=== PATIENT | male | born 1935 | race Caucasian/White ===

== ENCOUNTER 2016-10-26 12:21 | Outpatient (RCR) | payer MEDICARE, OTHER ==
--- OUTSIDE RECORDS SUMMARY | 2016-08-24 12:21 | XMS REPORT | Continuity of Care Document ---
Author Author [facility] Organization [facility] Address Unknown Phone Unavailable Care Team Providers Care Clam Shovel Operator Name Role Phone NO, LOCAL PHYSICIAN PCP Unavailable Insurance Providers Payer Name Policy Number Subscriber Name Relationship [employer] [id number] Gloria Walters 17 Self / Same As Patient Advance Directives Directive Response Recorded Date/Time Advance Directives No 04/16/14 12:31pm Health Care Power of Botany Technician No 04/16/14 12:31pm Organ Donor No 04/16/14 12:31pm Resuscitation Status Full Code 04/16/14 12:31pm Chief Complaint and Reason for Visit Chief Complaint CHEST PAIN ABD PAIN Reason for Visit Right upper quadrant abdominal pain Renal insufficiency Problems Medical Problems Problem Onset Date Status Right upper quadrant abdominal pain Unknown Active Renal insufficiency Unknown Active Medications Medication Dose Route Sig Days/Qty Instructions Order Date Discontinued Date Status [Bp Pill] 11/29/11 04/16/14 Discontinued Tramadol Hcl 100 Mg PO TWICE A DAY 11/29/11 Active [Crestor] 11/29/11 04/16/14 Discontinued Aspirin 325 Mg PO DAILY 11/29/11 04/16/14 Discontinued Cyclobenzaprine HCl (Flexeril) 1 Each PO Q8HR PRN 14 Qty 11/29/11 Discontinued Tramadol Hcl 50 Mg PO EVERY 6 HOURS 30 Qty 11/29/11 04/16/14 Discontinued Metformin HCl (Glucophage) 1,000 Mg PO TWICE A DAY 04/16/14 Active Lisinopril 2.5 Mg PO TWICE A DAY 04/16/14 Active Levothyroxine Sodium (Levothroid) 25 Mcg PO DAILY 04/16/14 Active Rosuvastatin Calcium 20 Mg PO BEDTIME 04/16/14 Active Omeprazole 20 Mg PO TWICE A DAY 04/16/14 Active Allopurinol 300 Mg PO DAILY 04/16/14 Active Terazosin Hcl 10 Mg PO BEDTIME 04/16/14 Active Ferrous Sulfate 325 Mg PO BEDTIME 04/16/14 Active Calcium Carb/D3/Mag Aa Chelate 1 Cap PO DAILY 04/16/14 Active [place]-3 Fatty Acids/Fish Oil 1,000 Mg PO DAILY 04/16/14 Active Social History Social History Problem Response Recorded Date/Time Alcohol Use Denies Use 04/16/2014 1:00pm Recreational Drug Use No 04/16/2014 1:00pm Recent Foreign Travel No 04/16/2014 1:00pm Recent Infectious Disease Exposure No 04/16/2014 1:00pm Hospitalization with Isolation Denies 04/17/2014 9:34pm Sexually Transmitted Disease No 04/16/2014 1:00pm HIV/AIDS No 04/16/2014 1:00pm Smoking Status Former Smoker 04/16/2014 12:37pm Do you dip or chew tobacco? No 04/16/2014 12:37pm Query Response Start Date Stop Date Smoking Status Former Smoker 03/26/2010 Hospital Discharge Instructions No hospital discharge instructions. Plan of Care Discharge Date 04/17/14 5:23pm Disposition 05 XFER OTHER Instructions/Education Provided Healthy Heart Diet (DC) Prescriptions See Medications Section Functional Status Query Response Date Recorded Patient Orientation Person Place Time Situation April 17, 2014 9:34pm Comprehension Ability Understands Concepts April 17, 2014 9:00am Allergies, Adverse Reactions, Alerts Allergen Type Severity Reaction Status Last Updated No Known Drug Allergies Active 11/29/11 Immunizations Name Given Type Date of Influenza Vaccine 08/26/11 Historical Hepatitis A No Historical Hepatitis B No Historical Tetanus Booster (TDap) Unknown Historical pneumococcal polysaccharide PPV23 04/17/14 Administered pneumococcal polysaccharide PPV23 04/17/14 Administered Vital Signs Acute Vital Signs Vital Response Date/Time Temperature (Fahrenheit) 99.4 degrees F (97.6 - 99.5) Temperature (Calculated Celsius) 37.91380 degrees C (36.4 - 37.5) Temperature Source Tympanic Pulse Rate (adult) 98 bpm (60 - 90) Respiratory Rate 20 bpm (12 - 24) O2 Sat by Pulse Oximetry 92 % (88 - 100) Blood Pressure 132/89 mm Hg Pain Pain Intensity 0 Pain Pain Intensity 0 Height (Feet) 5 feet Height (Inches) 7.00 inches Height (Calculated Centimeters) 170.512676 cm Weight (Pounds) 244 pounds Weight (Ounces) 3.2 oz Weight (Calculated Grams) 290088.258 gm Weight (Calculated Kilograms) 110.498577 kilograms Calculated BMI 37.90 Results Test Source Date Result Interp. Ref. Range Comments Activated Partial Thromboplast Time April 16, 2014 6:45am 27 SEC N 24-35 Has specimen been collected/obtained? Y Alanine Aminotransferase (ALT/SGPT) April 16, 2014 6:45am 17 U/L N 0-55 Has specimen been collected/obtained? Y Albumin April 16, 2014 6:45am 3.6 G/DL N 3.2-4.5 Has specimen been collected/obtained? Y Alkaline Phosphatase April 16, 2014 6:45am 63 U/L N 40-136 Has specimen been collected/obtained? Y Amylase Level April 16, 2014 6:45am 74 U/L N 25-125 Has specimen been collected/obtained? Y Aspartate Amino Transf (AST/SGOT) April 16, 2014 6:45am 21 U/L N 5-34 Has specimen been collected/obtained? Y BUN/Creatinine Ratio April 16, 2014 6:45am 12 - Has specimen been collected/obtained? Y Basophils # (Auto) April 16, 2014 6:45am 0.0 10^3/uL N 0.0-0.1 Has specimen been collected/obtained? Y Basophils (%) (Auto) April 16, 2014 6:45am 0 % N 0-10 Has specimen been collected/obtained? Y Blood Urea Nitrogen April 16, 2014 6:45am 23 MG/DL H 7-18 Has specimen been collected/obtained? Y Calcium Level April 16, 2014 6:45am 8.9 MG/DL N 8.5-10.1 Has specimen been collected/obtained? Y Carbon Dioxide Level April 16, 2014 6:45am 28 MMOL/L N 21-32 Has specimen been collected/obtained? Y Chloride Level April 16, 2014 6:45am 101 MMOL/L N 98-107 Has specimen been collected/obtained? Y Creatine Kinase MB April 16, 2014 6:45am 4.8 NG/ML - Has specimen been collected/obtained? Y Creatinine April 16, 2014 6:45am 1.88 MG/DL H 0.60-1.30 Has specimen been collected/obtained? Y Eosinophils # (Auto) April 16, 2014 6:45am 0.1 10^3/uL N 0.0-0.3 Has specimen been collected/obtained? Y Eosinophils (%) (Auto) April 16, 2014 6:45am 0 % N 0-10 Has specimen been collected/obtained? Y Glucose Level April 16, 2014 6:45am 203 MG/DL H 70-105 Has specimen been collected/obtained? Y Hematocrit April 16, 2014 6:45am 37 % L 40-54 Has specimen been collected/obtained? Y Hemoglobin April 16, 2014 6:45am 12.3 G/DL L 13.3-17.7 Has specimen been collected/obtained? Y Lipase April 16, 2014 6:45am 16 U/L N 8-78 Has specimen been collected/ obtained? Y Lymphocytes # (Auto) April 16, 2014 6:45am 2.1 X 10^3 N 1.0-4.0 Has specimen been collected/obtained? Y Lymphocytes (%) (Auto) April 16, 2014 6:45am 16 % N 12-44 Has specimen been collected/obtained? Y Magnesium Level April 16, 2014 6:45am 1.6 MG/DL L 1.8-2.4 Has specimen been collected/obtained? Y Mean Corpuscular Hemoglobin April 16, 2014 6:45am 33 PG N 25-34 Has specimen been collected/obtained? Y Mean Corpuscular Hemoglobin Concent April 16, 2014 6:45am 33 G/DL N 32- 36 Has specimen been collected/obtained? Y Mean Corpuscular Volume April 16, 2014 6:45am 100 FL H 80-99 Has specimen been collected/obtained? Y Mean Platelet Volume April 16, 2014 6:45am 9.8 FL N 7.4-10.4 Has specimen been collected/obtained? Y Monocytes # (Auto) April 16, 2014 6:45am 0.7 X 10^3 N 0.0-1.0 Has specimen been collected/obtained? Y Monocytes (%) (Auto) April 16, 2014 6:45am 6 % N 0-12 Has specimen been collected/obtained? Y Myoglobin April 16, 2014 6:45am 150.1 NG/ML H 10.0-92.0 Has specimen been collected/obtained? Y Neutrophils # (Auto) April 16, 2014 6:45am 10.3 X 10^3 H 1.8-7.8 Has specimen been collected/obtained? Y Neutrophils (%) (Auto) April 16, 2014 6:45am 78 % H 42-75 Has specimen been collected/obtained? Y Platelet Count April 16, 2014 6:45am 195 10^3/uL N 130-400 Has specimen been collected/obtained? Y Potassium Level April 16, 2014 6:45am 4.3 MMOL/L N 3.6-5.0 Has specimen been collected/obtained? Y Prothrombin Time April 16, 2014 6:45am 13.3 SEC N 12.2-14.7 Has specimen been collected/obtained? Y Red Blood Count April 16, 2014 6:45am 3.72 10^6/uL L 4.35-5.85 Has specimen been collected/obtained? Y Red Cell Distribution Width April 16, 2014 6:45am 13.5 % N 10.0-14.5 Has specimen been collected/obtained? Y Sodium Level April 16, 2014 6:45am 142 MMOL/L N 135-145 Has specimen been collected/obtained? Y Total Bilirubin April 16, 2014 6:45am 0.4 MG/DL N 0.1-1.0 Has specimen been collected/obtained? Y Total Creatine Kinase April 16, 2014 6:45am 448 U/L H 30-200 Has specimen been collected/obtained? Y Total Protein April 16, 2014 6:45am 7.1 G/DL N 6.4-8.2 Has specimen been collected/obtained? Y Troponin I April 16, 2014 6:45am < 0.30 NG/ML - Has specimen been collected/obtained? Y White Blood Count April 16, 2014 6:45am 13.2 10^3/uL H 4.3-11.0 Has specimen been collected/obtained? Y Estimat Glomerular Filtration Rate April 16, 2014 6:45am 35 - GFR INTERPRETIVE DATA UNITS FOR ESTIMATED GFR (eGFR): mL/min/1.73 M2 REFERENCE RANGE FOR ESTIMATED GFR (eGFR) eGFR NORMAL eGFR >60 MODERATELY DECREASED eGFR 30-59 SEVERLY DECREASED eGFR 15-29 KIDNEY FAILURE <15 (OR DIALYSIS) INR Comment April 16, 2014 6:45am 1.0 N 0.8-1.4 INTERPRETIVE DATASUGGESTED THERAPEUTIC RANGE FOR INR'S: VENOUS THROMBOSIS, PULMONARY EMBOLISM, OR PREVENTION OF SYSTEMIC EMBOLISM (EG. IN ATRIAL FIBRILLATION): 2.0 - 3.0 MECHANICAL PROSTHETIC HEART VALVES: 2.5 - 3.5* *NOTE: INR'S UP TO 4.5 MAY BE NECESSARY IN SELECTED GROUPS OF HIGH RISK PATIENTS. [employer] CONSENSUS CONFERENCE ON ANTITHROMBOTIC THERAPY (2000). Procedures Procedure Status Date Provider(s) Tracing only of electrocardiogram completed 04/16/14 ARCHIE GONZALES MD Tracing only of electrocardiogram completed 04/16/14 LOUIS MIX MD Tracing only of electrocardiogram completed 04/16/14 LOUIS MIX MD Encounters Encounter Location Date/Time Discharged Inpatient [facility] 04/16/14 12:00pm Recent Diagnosis Right upper quadrant abdominal pain Renal insufficiency
[~2016-10-26 12:21] MED LIST: ALLO300T2 PO; ASP325T PO; BP PILL; CALC1CAP8 PO; CRESTOR; CYCL10TA9 PO; FERR-57 PO; LISI10TA2 PO; LVT.025T PO; MTF500T PO; OMEG1CAP51 PO; OMEP20CA12 PO; ROSU40TA PO; TERA10CA3 PO; TRAM50TA2 PO
== END 2016-11-22 | disposition home or self-care (01) ==
LOC: ONC 12:21
PROVIDERS: ATTEND Radiology Radiation Oncology
DX: Z51.0 Encounter for antineoplastic radiation therapy (principal); C07 Malignant neoplasm of parotid gland
CPT/HCPCS: 77300; 77301; 77331; 77332; 77334; 77336; 77338; 77386; 99214

== ENCOUNTER 2016-12-07 15:12 | Outpatient (RCR) | payer MEDICARE, OTHER ==
--- OUTSIDE RECORDS SUMMARY | 2016-12-07 15:15 | XMS REPORT | Continuity of Care Document ---
Author Author [facility] Organization [facility] Address Unknown Phone Unavailable Care Team Providers Care Showroom Salesperson Name Role Phone NEEL AMAYA MD PCP Insurance Providers Payer Name Policy Number Subscriber Name Relationship [employer] [id number] Gloria Walters 17 Self / Same As Patient Self Pay Pending Sivan Apprv [id number] Gloria Walters 17 Self / Same As Patient Advance Directives Directive Response Recorded Date/Time Advance Directives No 04/11/16 4:11am Health Care Power of Lead Installer No 04/11/16 4:11am Organ Donor No 04/11/16 4:11am Problems Active Problems Medical Problem Onset Date Status Elevated liver enzymes Unknown Acute Hyperglycemia Unknown Acute Pain, abdominal, epigastric Unknown Acute Renal insufficiency Unknown Acute Right upper quadrant abdominal pain Unknown Acute Medications Current Home Medications Medication Dose Units Route Directions Days/Qty Instructions Start Date Tramadol Hcl 50 Mg 100 Mg Oral Twice A Day 11/29/11 Metformin Hcl (Glucophage) 500 Mg 1,000 Mg Oral Twice A Day 04/16/14 Lisinopril 10 Mg 2.5 Mg Oral Twice A Day 04/16/14 Levothyroxine Sodium (Levothroid) 25 Mcg 25 Mcg Oral Daily 04/16/14 Rosuvastatin Calcium 40 Mg 20 Mg Oral Bedtime 04/16/14 Omeprazole 20 Mg 20 Mg Oral Twice A Day 04/16/14 Allopurinol 300 Mg 300 Mg Oral Daily 04/16/14 Terazosin Hcl 10 Mg 10 Mg Oral Bedtime 04/16/14 Ferrous Sulfate 325 Mg 325 Mg Oral Bedtime 04/16/14 Calcium Carb/D3/Mag Aa Chelate 1 Each 1 Cap Oral Daily 04/16/14 [place]-3 Fatty Acids/Fish Oil 1 Each 1,000 Mg Oral Daily 04/16/14 Past Home Medications Medication Directions Ordered Status [Bp Pill] , 11/29/11 Discontinued [Crestor] , 11/29/11 Discontinued Aspirin 325 Mg Tab, 325 Mg Oral Daily 11/29/11 Discontinued Cyclobenzaprine Hcl (Flexeril) 10 Mg Tablet, 1 Each Oral Q8hr Prn 11/29/11 Discontinued Tramadol Hcl 50 Mg Tablet, 50 Mg Oral Every 6 Hours 11/29/11 Discontinued Social History Social History Problem Response Recorded Date/Time Alcohol Use Denies Use 04/11/2016 4:11am Recreational Drug Use No 04/11/2016 4:11am Recent Foreign Travel No 04/16/2014 1:00pm Recent Infectious Disease Exposure No 04/16/2014 1:00pm Hospitalization with Isolation Denies 04/17/2014 9:34pm Sexually Transmitted Disease No 04/11/2016 4:11am HIV/AIDS No 04/11/2016 4:11am Do you dip or chew tobacco? No 04/11/2016 4:11am Sexually Transmitted Disease No 04/11/2016 4:11am Hospitalization with Isolation Denies 04/17/2014 9:34pm Hospital Discharge Instructions No hospital discharge instructions. Plan of Care Prescriptions See Medication Section Functional Status No functional status results. Allergies, Adverse Reactions, Alerts No known allergies. Immunizations No immunization records. Vital Signs No known vital signs results. Results No known relevant diagnostic tests, laboratory data and/or discharge summary. Procedures No known history of procedures. Encounters Encounter Location Arrival/Admit Date Discharge/Depart Date Attending Provider Discharged Recurring [facility] 10/26/16 12:21pm 11:59pm JOSÉ BRYANT MD
[2016-12-22] MEDS ORDERED: CEPH500T PO (17:37)
== END 2017-03-07 | disposition home or self-care (01) ==
LOC: ONC 15:12
PROVIDERS: ATTEND Radiology Radiation Oncology
DX: C07 Malignant neoplasm of parotid gland (principal)
CPT/HCPCS: 99213

== ENCOUNTER 2016-12-22 13:34 | Emergency (ER) | payer MEDICARE ==
[~2016-12-22] VITALS: Ht 170.2 cm; Wt 110.8 kg
[2016-12-22] MEDS ORDERED: NS IV 500 ML 500 ML IV ONE (13:46)
[2016-12-22 13:54] LABS: BASOPHILS % (AUTO) 0 % (0-10); EOSINOPHILS # (AUTO) 0.1 10^3/uL (0.0-0.3); EOSINOPHILS % (AUTO) 1 % (0-10); LYMPHOCYTES # (AUTO) 1.3 X 10^3 (1.0-4.0); LYMPHOCYTES % (AUTO) 20 % (12-44); MEAN CORPUSCULAR HEMOGLOBIN 32 PG (25-34); MEAN CORPUSCULAR HGB CONC 34 G/DL (32-36); MEAN CORPUSCULAR VOLUME 94 FL (80-99); MEAN PLATELET VOLUME 10.2 FL (7.4-10.4); MONOCYTES # (AUTO) 0.6 X 10^3 (0.0-1.0); MONOCYTES % (AUTO) 9 % (0-12); NEUTROPHILS # (AUTO) 4.5 X 10^3 (1.8-7.8); NEUTROPHILS % (AUTO) 70 % (42-75); PLATELET COUNT 189 10^3/uL (130-400); RED BLOOD COUNT 4.36 10^6/uL (4.35-5.85); RED CELL DISTRIBUTION WIDTH 16.1 % (10.0-14.5); WHITE BLOOD COUNT 6.4 10^3/uL (4.3-11.0)
[2016-12-22] MEDS ORDERED: DEXTROSE 50% 50 ML (IMS) SYR IV ONE (14:00)
[2016-12-22 14:07] LABS: ALANINE AMINOTRANSFERASE 18 U/L (0-55); ALBUMIN 3.4 G/DL (3.2-4.5); ANION GAP 9 MMOL/L (5-14); ASPARTATE AMINO TRANSFERASE 27 U/L (5-34); BILIRUBIN,TOTAL 0.7 MG/DL (0.1-1.0); BLOOD UREA NITROGEN 24 MG/DL (7-18); BUN/CREATININE RATIO 13; CALCIUM 9.3 MG/DL (8.5-10.1); CARBON DIOXIDE 21 MMOL/L (21-32); CHLORIDE 108 MMOL/L (98-107); CREATININE SERUM 1.87 MG/DL (0.60-1.30); GFR ESTIMATED 35; GLUCOSE 147 MG/DL (70-105); POTASSIUM 4.2 MMOL/L (3.6-5.0); SODIUM 138 MMOL/L (135-145); TOTAL PROTEIN 6.4 G/DL (6.4-8.2)
--- NOTE | 2016-12-22 14:08 | ED General ---
General Chief Complaint: Glucose Problems Stated Complaint: LOW BLOOD SUGAR Nursing Triage Note: EMS REPORTS PT HAS HAD SEVERAL INCIDENENTS IN THE LAST COUPLE WEEKS OF LOW BLOOD SUGAR. PT REPORTS HE FELL LAST WEEK AND HAS A HEMATOMA TO L EYE. PT REPORTS HE DID NOT SEEK MEDICAL CARE FOR THE FALL. PT BS UPON EMS ARRIVAL TO [facility] [place] IS REPORTED TO BE IN THE 30'S AND PT WAS UNRESPONSIVE. PT RECIEVED 1 AMP D50 PER EMS IN ROUTE AND BLOOD SUGAR WAS 230. UPON ARRIVAL TO ED PT BLOOD SUGAR IS 132. PT IS ALERT AND ORIENTED UPON ARRIVAL AND ABLE TO OBEY COMMANDS. Nursing Sepsis Screen: No Definite Risk Source of Information: Patient, Family Exam Limitations: No Limitations History of Present Illness Time Seen by Provider: 13:53 Initial Comments Here with report of low blood sugar today and unresponsiveness. EMS was summoned. He was noted to have blood sugars as listed above in triage note. Overall mentating better now. He has had multiple episodes of this over the last couple of weeks. Patient was on radiation therapy for cancer and has not had much appetite fluids. [facility] [place] [place] [facility] [place]. He has had no adjustments of his insulin dosing despite his decreased appetite. After his fall last week he did not seek medical care. Aside from the injury, he does not report any other injury. Timing/Duration: Intermittent, Other (2 weeks) Severity: Moderate Associated Systoms: No Chest Pain, No Cough, No Fever/Chills, No Nausea/ Vomiting, No Shortness of Air, Weakness Allergies and Home Medications Allergies Coded Allergies: No Known Drug Allergies (Unverified , 11/29/11) Home Medications Allopurinol 300 Mg Tab, 300 MG PO DAILY, (Reported) Calcium Carb/D3/Mag Aa Chelate 1 Each Capsule, 1 CAP PO DAILY, (Reported) Ferrous Sulfate 325 Mg Tablet, 325 MG PO HS, (Reported) Levothyroxine Sodium 25 Mcg Tablet, 25 MCG PO DAILY, (Reported) Lisinopril 10 Mg Tablet, 2.5 MG PO BID, (Reported) Metformin Hcl 500 Mg Tablet, 1,000 MG PO BID, (Reported) Munday-3 Fatty Acids/Fish Oil 1 Each Capsule, 1,000 MG PO DAILY, (Reported) Omeprazole 20 Mg Capsule.dr, 20 MG PO BID, (Reported) Rosuvastatin Calcium 40 Mg Tablet, 20 MG PO HS, (Reported) Terazosin Hcl 10 Mg Capsule, 10 MG PO HS, (Reported) Tramadol Hcl 50 Mg Tablet, 100 MG PO BID, (Reported) Constitutional: see HPI EENTM: see HPI Respiratory: no symptoms reported Cardiovascular: no symptoms reported Gastrointestinal: no symptoms reported, No nausea, No vomiting Genitourinary: no symptoms reported Musculoskeletal: no symptoms reported Skin: see HPI, change in color, No lesions Psychiatric/Neurological: See HPI, Weakness Hematologic/Lymphatic: No Symptoms Reported Immunological/Allergic: no symptoms reported All Other Systems Reviewed Negative Unless Noted: Yes Past Oxsuzma-Gwgixx-Kcpbcw Hx Patient Social History Alcohol Use: Rarely Uses Recreational Drug Use: No Smoking Status: Former Smoker Type Used: Cigarettes Former Smoker/When Quit: Mar 26, 2010 Recent Foreign Travel: No Contact w/Someone Who Travel: No Recent Infectious Disease Expo: No Recent Hopitalizations: No Immunizations Up To Date Tetanus Booster (TDap): Unknown PED Vaccines UTD: No Date of Influenza Vaccine: Aug 26, 2011 Seasonal Allergies Seasonal Allergies: No Surgeries HX Surgeries: Yes (anurysm repair, ) Surgeries: Coronary Stent, Gallbladder Respiratory Hx Respiratory Disorders: No Cardiovascular Hx Cardiac Disorders: Yes Cardiac Disorders: Coronary Artery Disease, High Cholesterol, Hypertension Neurological Hx Neurological Disorders: Yes (pt stated had a stroke 15 years ago but has not been diagnosed) Reproductive System Hx Reproductive Disorders: No Sexually Transmitted Disease: No HIV/AIDS: No Genitourinary Hx Genitourinary Disorders: Yes Genitourinary Disorders: Prostate Problems Gastrointestinal Hx Gastrointestinal Disorders: No (HX OF GALLSTONES) Gastrointestinal Disorders: Gastroesophageal Reflux, Ulcer Musculoskeletal Hx Musculoskeletal Disorders: No Musculoskeletal Disorders: Arthritis, Chronic Back Pain, Gout Endocrine Hx Endocrine Disorders: Yes Endocrine Disorders: Diabetes, Insulin dep, Hypothyroidsim HEENT HX ENT Disorders: Yes HEENT Disorders: Cataract, Glaucoma Loss of Vision: Bilateral Hearing Impairment: Denies Cancer Hx Cancer: Yes Cancer: Skin Psychosocial Hx Psychiatric Problems: Yes Behavioral Health Disorders: Depression Integumentary HX Skin/Integumentary Disorder: Yes (hx of skin cancer) Blood Transfusions Hx Blood Disorders: No Adverse Reaction to a Blood Tr: No Reviewed Nursing Assessment Reviewed/Agree w Nursing PMH: Yes Family Medical History Significant Family History: No Pertinent Family Hx Physical Exam Vital Signs Vital Sign - Last 12Hours 12/22/16 13:40 Temp 97.1 Pulse 88 Resp 18 B/P (MAP) 156/87 Pulse Ox 99 Capillary Refill : Less Than 3 Seconds General Appearance: No Apparent Distress, WD/WN HEENT: PERRL/EOMI, TMs Normal, Pharynx Normal, Other (left periorbital ecchymosis) Neck: Full Range of Motion, Normal Inspection, Non Tender, Supple Respiratory: Chest Non Tender, Lungs Clear, Normal Breath Sounds Cardiovascular: Regular Rate, Rhythm, No Murmur Gastrointestinal: Non Tender, Soft Back: Normal Inspection, No CVA Tenderness, No Vertebral Tenderness Extremity: Normal Range of Motion, Non Tender, No Calf Tenderness Neurologic/Psychiatric: Alert, Oriented x3, No Motor/Sensory Deficits Skin: Warm/Dry, Ecchymosis (left-sided face as described above. ), Other (no abrasion is noted to the face or head.) Progress/Results/Core Measures Results/Orders Lab Results Laboratory Tests Test 12/22/16 13:42 12/22/16 14:53 12/22/16 16:30 Range/Units White Blood Count 6.4 4.3-11.0 10^3/uL Red Blood Count 4.36 4.35-5.85 10^6/uL Hemoglobin 14.0 13.3-17.7 G/DL Hematocrit 41 40-54 % Mean Corpuscular Volume 94 80-99 FL Mean Corpuscular Hemoglobin 32 25-34 PG Mean Corpuscular Hemoglobin Concent 34 32-36 G/DL Red Cell Distribution Width 16.1 H 10.0-14.5 % Platelet Count 189 130-400 10^3/uL Mean Platelet Volume 10.2 7.4-10.4 FL Neutrophils (%) (Auto) 70 42-75 % Lymphocytes (%) (Auto) 20 12-44 % Monocytes (%) (Auto) 9 0-12 % Eosinophils (%) (Auto) 1 0-10 % Basophils (%) (Auto) 0 0-10 % Neutrophils # (Auto) 4.5 1.8-7.8 X 10^3 Lymphocytes # (Auto) 1.3 1.0-4.0 X 10^3 Monocytes # (Auto) 0.6 0.0-1.0 X 10^3 Eosinophils # (Auto) 0.1 0.0-0.3 10^3/uL Basophils # (Auto) 0.0 0.0-0.1 10^3/uL Sodium Level 138 135-145 MMOL/L Potassium Level 4.2 3.6-5.0 MMOL/L Chloride Level 108 H 98-107 MMOL/L Carbon Dioxide Level 21 21-32 MMOL/L Anion Gap 9 5-14 MMOL/L Blood Urea Nitrogen 24 H 7-18 MG/DL Creatinine 1.87 H 0.60-1.30 MG/DL Estimat Glomerular Filtration Rate 35 BUN/Creatinine Ratio 13 Glucose Level 147 H 70-105 MG/DL Calcium Level 9.3 8.5-10.1 MG/DL Total Bilirubin 0.7 0.1-1.0 MG/DL Aspartate Amino Transf (AST/SGOT) 27 5-34 U/L Alanine Aminotransferase (ALT/SGPT) 18 0-55 U/L Alkaline Phosphatase 140 H 40-136 U/L Troponin I < 0.30 <0.30 NG/ML Total Protein 6.4 6.4-8.2 G/DL Albumin 3.4 3.2-4.5 G/DL Glucometer 203 H 70-110 MG/DL Urine Color YELLOW Urine Clarity CLEAR Urine pH 5 5-9 Urine Specific [place] 1.020 1.016-1.022 Urine Protein 2+ H NEGATIVE Urine Glucose (UA) 2+ H NEGATIVE Urine Ketones NEGATIVE NEGATIVE Urine Nitrite NEGATIVE NEGATIVE Urine Bilirubin NEGATIVE NEGATIVE Urine Urobilinogen NORMAL NORMAL MG/DL Urine Leukocyte Esterase 2+ H NEGATIVE Urine RBC (Auto) 1+ H NEGATIVE Urine RBC 0-2 /HPF Urine WBC 25-50 H /HPF Urine Squamous Epithelial Cells 5-10 /HPF Urine Crystals NONE /LPF Urine Bacteria FEW H /HPF Urine Casts PRESENT /LPF Urine Granular Casts 2-5 H /LPF Urine Mucus NEGATIVE /LPF Urine Culture Indicated YES My Orders Orders - ARCHIE GONZALES MD Cbc With Automated Diff (12/22/16 13:46) Comprehensive Metabolic Panel (12/22/16 13:46) Troponin I (12/22/16 13:46) Ua Culture If Indicated (12/22/16 13:46) Saline Lock/Iv-Start (12/22/16 13:46) Ekg Tracing (12/22/16 13:46) D50w (Emergency) Syringe (Dextrose 50% 5 (12/22/16 14:00) Ns Iv 500 Ml (Sodium Chloride 0.9%) (12/22/16 13:46) Ct Head Wo (12/22/16 14:02) General/Regular (12/22/16 Lunch) Urine Culture (12/22/16 16:30) Medications Given in ED Current Medications Medications Dose Ordered Sig/Steven Route Start Time Stop Time Status Last Admin Dose Admin Dextrose 50 ml ONCE ONCE IV 12/22/16 14:00 12/22/16 14:01 DC 12/22/16 13:59 50 ML Sodium Chloride 500 ml @ 0 mls/hr Q0M ONCE IV 12/22/16 13:46 12/22/16 13:50 DC 12/22/16 13:59 0 MLS/HR Vital Signs/I&O Vital Sign - Last 12Hours 12/22/16 13:40 Temp 97.1 Pulse 88 Resp 18 B/P (MAP) 156/87 Pulse Ox 99 Blood Pressure Mean: 110 Progress Note : Progress Note Seen and evaluated. IV by EMS. This IV no longer worked after arrival. Repeat IV. Due to the patient's recent fall history and continued hypoglycemia , we will get CT of the head as well as labs and UA. Normal saline 500 mL bolus. One amp of D50 for declining sugars given. Monitor patient. ECG Initial ECG Impression Date: Dec 22, 2016 Initial ECG Impression Time: 13:43 Initial ECG Rate: 86 Initial ECG Rhythm: Normal Sinus Comment Sinus rhythm with right bundle branch block. No evidence of ST elevation [facility]. Normal axis. Similar to previous of 04/11/16. Interpreted by me. Diagnostic Imaging Diagonstic Imaging: CT Plain Films/CT/US/NM/MRI: head Comments NAME: [facility] REC#: [id number] PT STATUS: REG ER : 1935 PHYSICIAN: ARCHIE GONZALES MD ADMIT DATE: 12/22/16/ER Signed Date of Exam: 12/22/16 CT HEAD WO INDICATION: Fall with injury to head. TECHNIQUE: A noncontrast brain CT was performed. FINDINGS: There is mild diffuse atrophic change. There are patchy low-density changes in the deep white matter, compatible with chronic ischemic change. There is no hemorrhage or mass effect. There is no subdural or epidural collection. There are vascular calcifications noted. The calvarial windows are unremarkable. There is partial opacification of the mastoid air cells on the left side. IMPRESSION: Atrophic changes and mild chronic changes in the deep white matter. No acute intracranial abnormality. Dictated by: Dictated on workstation # [id number] Dict: 12/22/16 1458 Trans: 12/22/16 1523 [id number] Interpreted by: NGA ROMERO MD Electronically signed by:NGA ROMERO MD 12/22/16 1523 Reviewed: Reviewed by Me Departure Impression Impression: Primary Impression: Hypoglycemia associated with diabetes Additional Impression: Urinary tract infection Qualified Codes: N30.00 - Acute cystitis without hematuria Disposition: HOME, SELF-CARE Condition: Improved Departure-Patient Inst. Decision time for Depature: 17:31 Referrals: NO,LOCAL PHYSICIAN (PCP/Family) Primary Care Physician Patient Instructions: Diabetes Type 2 (DC), HYPOGLYCEMIA, Urinary Tract Infection, Adult (DC) Add. Discharge Instructions: All discharge instructions reviewed with patient and/or family. Voiced understanding. Continue home medications as directed. You should decrease your long-acting insulin dose 10 percent which would be 27 units daily and decrease your short acting or rapid acting insulin to 18 units after meals as well. Call your doctor tomorrow for appointment within the next few days. You need to have your insulin dosing verified and adjusted by your doctor to help prevent the low blood sugars. Do not take your short acting insulin if you have not eaten. Do not take your insulin if your blood sugar is low. Return for worse pain, fever, vomiting, weakness or other concerns as needed. Scripts Cephalexin (Cephalexin) 500 Mg Tablet 500 MG PO BID, #14 TAB 0 Refills Prov: ARCHIE GONZALES MD 12/22/16 ARCHIE GONZALES MD Dec 22, 2016 14:08
[2016-12-22 14:13] LABS: TROPONIN I < 0.30 NG/ML (<0.30)
--- NOTE | 2016-12-22 15:03 | Diagnostic Imaging Report ---
INDICATION: Fall with injury to head. TECHNIQUE: A noncontrast brain CT was performed. FINDINGS: There is mild diffuse atrophic change. There are patchy low-density changes in the deep white matter, compatible with chronic ischemic change. There is no hemorrhage or mass effect. There is no subdural or epidural collection. There are vascular calcifications noted. The calvarial windows are unremarkable. There is partial opacification of the mastoid air cells on the left side. IMPRESSION: Atrophic changes and mild chronic changes in the deep white matter. No acute intracranial abnormality. Dictated by: Dictated on workstation # [id number]
[2016-12-22 16:41] LABS: BILIRUBIN,URINE NEGATIVE (NEGATIVE); KETONES,URINE NEGATIVE (NEGATIVE); LEUKOCYTE ESTERASE ,URINE 2+ (NEGATIVE); NITRITE,URINE NEGATIVE (NEGATIVE); PH,URINE 5 (5-9); PROTEIN,URINE 2+ (NEGATIVE); UROBILINOGEN,URINE NORMAL (NORMAL)
[2016-12-22 16:53] LABS: WBC,URINE 25-50 /HPF
[2016-12-22] MEDS ORDERED: CEPH500T PO (17:37)
[2016-12-22 17:46] VITALS: BP 142/86
--- OUTSIDE RECORDS SUMMARY | 2017-01-16 04:48 | XMS REPORT | Continuity of Care Document ---
Author Author [facility] Organization [facility] Address Unknown Phone Unavailable Allergies Active Description Code Type Severity Reaction Onset Reported/Identified Relationship to Patient Clinical Status Yes No Known Drug Allergies [id number] Drug Allergy Unknown N/ A 11/29/2011 Medications Problems Date Dx Coded Attending Type Code Diagnosis Diagnosed By 11/29/2011 Ot 724.2 LUMBAGO 04/17/2014 LOUIS MIX MD Ot 414.01 CORONARY ATHEROSCLEROSIS OF [place] CORON 04/17/2014 LOUIS MIX MD Ot 593.9 RENAL URETERAL DIS NOS 04/17/2014 LOUIS MIX MD Ot 786.50 CHEST PAIN NOS 04/17/2014 LOUIS MIX MD Ot 789.01 ABDOMINAL PAIN, RIGHT UPPER QUADRANT 04/11/2016 MARIANA RUCKER MD Ot I25.10 ATHSCL HEART DISEASE OF [place] CORONARY 04/11/2016 MARIANA RUCKER MD Ot I70.0 ATHEROSCLEROSIS OF [place] 04/11/2016 MARIANA RUCKER MD Ot 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 04/11/2016 MARIANA RUCKER MD Ot 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 04/11/2016 MARIANA RUCKER MD Ot R10.13 EPIGASTRIC PAIN 04/11/2016 MARIANA RUCKER MD Ot R73.9 HYPERGLYCEMIA, UNSPECIFIED 04/11/2016 MARIANA RUCKER MD Ot R74.8 ABNORMAL LEVELS OF OTHER SERUM ENZYMES 09/02/2016 JOSÉ BRYANT MD 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 09/23/2016 JOSÉ BRYANT MD, 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 10/08/2016 JOSÉ BRYANT MD, 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 11/22/2016 JOSÉ BRYANT MD, 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 11/22/2016 JOSÉ BRYANT MD Ot Z51.0 ENCOUNTER FOR ANTINEOPLASTIC RADIATION T 11/23/2016 JOSÉ BRYANT MD, 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 11/23/2016 JOSÉ BRYANT MD, Ot Z51.0 ENCOUNTER FOR ANTINEOPLASTIC RADIATION T 12/07/2016 JOSÉ BRYANT MD, 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 12/08/2016 JOSÉ BRYANT MD, 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 Procedures Results Test Result Range Capillary blood glucose measurement by glucometer (mass/volume) - 12/22/16 13: 37 Capillary blood glucose measurement by glucometer (mass/volume) 132 mg/dL 70-110 Complete blood count (CBC) with automated white blood cell (WBC) differential - 12/22/16 13:42 Blood leukocytes automated count (number/volume) 6.4 10*3/ uL 4.3-11.0 Blood erythrocytes automated count (number/volume) 4.36 10*6 /uL 4.35-5.85 Venous blood hemoglobin measurement (mass/volume) 14.0 g/dL 13.3-17.7 Blood hematocrit (volume fraction) 41 % 40-54 Automated erythrocyte mean corpuscular volume 94 [foz_us] 80-99 Automated erythrocyte mean corpuscular hemoglobin (mass per erythrocyte) 32 pg 25-34 Automated erythrocyte mean corpuscular hemoglobin concentration measurement ( mass/volume) 34 g/dL 32-36 Automated erythrocyte distribution width ratio 16.1 % 10.0-14.5 Automated blood platelet count (count/volume) 189 10*3/uL 130-400 Automated blood platelet mean volume measurement 10.2 [foz_ us] 7.4-10.4 Automated blood neutrophils/100 leukocytes 70 % 42-75 Automated blood lymphocytes/100 leukocytes 20 % 12-44 Blood monocytes/100 leukocytes 9 % 0-12 Automated blood eosinophils/100 leukocytes 1 % 0-10 Automated blood basophils/100 leukocytes 0 % 0-10 Blood neutrophils automated count (number/volume) 4.5 10*3 1.8-7.8 Blood lymphocytes automated count (number/volume) 1.3 10*3 1.0-4.0 Blood monocytes automated count (number/volume) 0.6 10*3 0.0-1.0 Automated eosinophil count 0.1 10*3/uL 0.0-0.3 Automated blood basophil count (count/volume) 0.0 10*3/uL 0.0-0.1 Comprehensive metabolic panel - 12/22/16 13:42 Serum or plasma sodium measurement (moles/volume) 138 mmol/ L 135-145 Serum or plasma potassium measurement (moles/volume) 4.2 mmol/L 3.6-5.0 Serum or plasma chloride measurement (moles/volume) 108 mmol /L 98-107 Carbon dioxide 21 mmol/L 21-32 Serum or plasma anion gap determination (moles/volume) 9 mmol/L 5-14 Serum or plasma urea nitrogen measurement (mass/volume) 24 mg/dL 7-18 Serum or plasma creatinine measurement (mass/volume) 1.87 mg /dL 0.60-1.30 Serum or plasma urea nitrogen/creatinine mass ratio 13 NRG Serum or plasma creatinine measurement with calculation of estimated glomerular filtration rate 35 NRG Serum or plasma glucose measurement (mass/volume) 147 mg/dL 70-105 Serum or plasma calcium measurement (mass/volume) 9.3 mg/dL 8.5-10.1 Serum or plasma total bilirubin measurement (mass/volume) 0.7 mg/dL 0.1-1.0 Serum or plasma alkaline phosphatase measurement (enzymatic activity/volume) 140 U/L 40-136 Serum or plasma aspartate aminotransferase measurement (enzymatic activity/ volume) 27 U/L 5-34 Serum or plasma alanine aminotransferase measurement (enzymatic activity/volume ) 18 U/L 0-55 Serum or plasma protein measurement (mass/volume) 6.4 g/dL 6.4-8.2 Serum or plasma albumin measurement (mass/volume) 3.4 g/dL 3.2-4.5 Serum or plasma troponin i.cardiac measurement (mass/volume) - 12/22/16 13:42 Serum or plasma troponin i.cardiac measurement (mass/volume) < ng/mL <0.30 Capillary blood glucose measurement by glucometer (mass/volume) - 12/22/16 14: 53 Capillary blood glucose measurement by glucometer (mass/volume) 203 mg/dL 70-110 Complete urinalysis with reflex to culture - 12/22/16 16:30 Urine color determination YELLOW NRG Urine clarity determination CLEAR NRG Urine pH measurement by test strip 5 5- 9 Specific gravity of urine by test strip 1.020 1.016-1.022 Urine protein assay by test strip, semi-quantitative 2+ NEGATIVE Urine glucose detection by automated test strip 2+ NEGATIVE Erythrocytes detection in urine sediment by light microscopy 1+ NEGATIVE Urine ketones detection by automated test strip NEGATIVE NEGATIVE Urine nitrite detection by test strip NEGATIVE NEGATIVE Urine total bilirubin detection by test strip NEGATIVE NEGATIVE Urine urobilinogen measurement by automated test strip (mass/volume) NORMAL NORMAL Urine leukocyte esterase detection by dipstick 2+ NEGATIVE Automated urine sediment erythrocyte count by microscopy (number/high power field) [HPF] NRG Automated urine sediment leukocyte count by microscopy (number/high power field ) [HPF] NRG Bacteria detection in urine sediment by light microscopy FEW NRG Squamous epithelial cells detection in urine sediment by light microscopy 5-10 NRG Crystals detection in urine sediment by light microscopy NONE NRG Casts detection in urine sediment by light microscopy PRESENT NRG Mucus detection in urine sediment by light microscopy NEGATIVE NRG Complete urinalysis with reflex to culture YES NRG Granular casts detection in urine sediment by light microscopy 2-5 NRG Bacterial urine culture - 12/22/16 16:30 Bacterial urine culture FOOTNOTE NRG Capillary blood glucose measurement by glucometer (mass/volume) - 12/22/16 17: 30 Capillary blood glucose measurement by glucometer (mass/volume) 125 mg/dL 70-110 Encounters ACCT No. Visit Date/Time Discharge Status Pt. Type Provider Facility Loc./Unit Complaint [id number] 12/22/2016 13:36:00 2016 17:46:00 DIS Emergency ARCHIE GONZALES MD [facility] ER LOW BLOOD SUGAR [id number] 10/26/2016 12:21:00 2016 00:01:00 DIS Outpatient JSOÉ BRYANT MD [facility] ONC [id number] 04/11/2016 04:05:00 2015 09:34:00 DIS Emergency CHAIM LEDEZMA, MARIANA Matthews [facility] ER CHEST PAIN, SOA [id number] 04/16/2014 12:00:00 2013 17:23:00 DIS Inpatient MARIA DEL ROSARIO LEDEZMA, LOUIS Peters [facility] ICU CHEST PAIN ABD PAIN [id number] 12/07/2016 15:12:00 ACT Outpatient JOSÉ BRYANT MD [facility] ONC [id number] 11/29/2011 07:58:00 Document Registration
== END 2016-12-22 17:46 | disposition home or self-care (01) ==
LOC: EDUNIT# 13:34 → ER 13:36
DX: E10.649 Type 1 diabetes mellitus with hypoglycemia without coma (principal); I10 Essential (primary) hypertension; I45.10 Unspecified right bundle-branch block; I25.10 Atherosclerotic heart disease of native coronary artery without angina pectoris; Z79.84 Long term (current) use of oral hypoglycemic drugs; Z79.899 Other long term (current) drug therapy
CPT/HCPCS: 36415; 70450; 80053; 81000; 82962; 84484; 85025; 87088; 93005; 96361; 96374

== ENCOUNTER 2017-02-16 13:37 | Outpatient (RCR) | payer MEDICARE, OTHER ==
[~2017-02-16 13:37] MED LIST changes: +CEPH500T PO
== END 2017-02-16 16:00 | disposition home or self-care (01) ==
LOC: WOUNDCARE 13:37
PROVIDERS: ATTEND Surgery
DX: L89.323 Pressure ulcer of left buttock, stage 3 (principal); R54 Age-related physical debility
CPT/HCPCS: 99212; 99213

== ENCOUNTER 2017-03-08 13:06 | Outpatient (RCR) | payer MEDICARE, OTHER ==
[2017-03-22] MEDS ORDERED: OXYB5TAB9 (03:40)
== END 2017-06-06 | disposition home or self-care (01) ==
LOC: ONC 13:06
PROVIDERS: ATTEND Radiology Radiation Oncology
DX: C07 Malignant neoplasm of parotid gland (principal)
CPT/HCPCS: 99213

== ENCOUNTER → 2017-03-16 | Outpatient (CLI) | payer OTHER ==
[~2017-03-16] MED LIST changes: +CATHETER FLUSH 10 ML SYR IV PRN; +IOHEXOL 350 MG/ML 100 ML (OMNIPAQUE 350) VIAL IV ONE; +NS 100 ML (IVPB) BAG IV ONE
[2017-03-16 14:02] LABS: CREATININE SERUM 1.52 MG/DL (0.60-1.30)
--- NOTE | 2017-03-16 17:04 | Diagnostic Imaging Report ---
PROCEDURE: CT chest, abdomen, and pelvis with and without contrast. TECHNIQUE: Precontrast images were obtained of the chest, abdomen, and pelvis. Multiple contiguous axial images were obtained through the chest, abdomen, and pelvis after administration of intravenous contrast. INDICATION: Parotid cancer. 75 mL of Omnipaque 350 is administered intravenously. FINDINGS: CT chest: There are right perihilar calcified granulomas. Minimal interstitial scarring in the inferior lingula is seen. No significant consolidation, mass or suspicious nodule is noted in the lungs. The heart size is normal. No pericardial or pleural effusion. Prominent coronary artery calcified plaque, particularly in the proximal LAD is seen. The thoracic aorta is patent with no dissection. There is mild aneurysmal dilatation measuring 4.1 cm in the mid ascending aorta. The aortic root, arch, and descending segments are normal in caliber. There are no significantly enlarged hilar, mediastinal or axillary lymph nodes. The osseous structures demonstrate degenerative changes with no suspicious destructive mass. Bridging syndesmophytes are seen along the right side aspect of the thoracic spine. CT abdomen and pelvis: The liver, the spleen, the adrenal glands and the pancreas appear unremarkable. Cholecystectomy clips are seen. The kidneys have symmetric enhancement and excretion. The unenhanced phase demonstrates no urinary tract stones. The urinary bladder appears unremarkable. There is an infrarenal abdominal aortic aneurysm with endograft repair seen. The endograft is patent. There is no contrast filling into the excluded aneurysm sac. The aneurysm measures 5.8 x 5.6 cm in maximum axial dimensions similar to 04/11/16 exam. There is no significant free fluid or fluid collection in the abdomen or pelvis. The osseous structures demonstrate degenerative changes with no suspicious mass. IMPRESSION: CT chest: 1. No significant lymphadenopathy or evidence of metastasis. 2. Mild aneurysmal dilatation of the ascending aorta measuring 4.[address] abdomen and pelvis: 1. No soft tissue mass or lymphadenopathy seen. 2. Infrarenal AAA status post endograft repair. It is 5.8 cm in maximum dimension stable from 04/11/16 exam. Dictated by: Dictated on workstation # [id number]
== END ==
LOC: RAD 13:28
PROVIDERS: ATTEND Radiology Radiation Oncology
DX: C07 Malignant neoplasm of parotid gland (principal); Z95.828 Presence of other vascular implants and grafts
CPT/HCPCS: 36415; 71270; 74178; 82565; 84520

== ENCOUNTER 2017-03-22 02:39 | Emergency (ER) | payer MEDICARE, OTHER ==
[~2017-03-22] VITALS: Ht 170.2 cm; Wt 72.6 kg
[~2017-03-22 02:39] MED LIST changes: -CATHETER FLUSH 10 ML SYR IV PRN; -IOHEXOL 350 MG/ML 100 ML (OMNIPAQUE 350) VIAL IV ONE; -NS 100 ML (IVPB) BAG IV ONE
[2017-03-22] MEDS ORDERED: RX-NITROGLYCERIN 0.4 MG TAB BTL 25'S SL ONE (02:51)
[2017-03-22] MEDS ORDERED: ASPIRIN 81 MG CHEW (CHILDREN'S ASA) ONE (02:51)
[2017-03-22] MEDS ORDERED: morphine INJ 10 MG/ML 1ML (SYR OR VIAL) IVP STA (02:53)
[2017-03-22 03:00] LABS: BASOPHILS % (AUTO) 0 % (0-10); EOSINOPHILS # (AUTO) 0.1 10^3/uL (0.0-0.3); EOSINOPHILS % (AUTO) 1 % (0-10); LYMPHOCYTES # (AUTO) 2.1 X 10^3 (1.0-4.0); LYMPHOCYTES % (AUTO) 18 % (12-44); MEAN CORPUSCULAR HEMOGLOBIN 32 PG (25-34); MEAN CORPUSCULAR HGB CONC 34 G/DL (32-36); MEAN CORPUSCULAR VOLUME 97 FL (80-99); MEAN PLATELET VOLUME 9.9 FL (7.4-10.4); MONOCYTES # (AUTO) 0.6 X 10^3 (0.0-1.0); MONOCYTES % (AUTO) 5 % (0-12); NEUTROPHILS % (AUTO) 76 % (42-75); PLATELET COUNT 268 10^3/uL (130-400); RED BLOOD COUNT 4.32 10^6/uL (4.35-5.85); WHITE BLOOD COUNT 11.8 10^3/uL (4.3-11.0)
[2017-03-22] MEDS ORDERED: RX-NITROGLYCERIN 0.4 MG TAB BTL 25'S SL PRN (03:00)
[2017-03-22] MEDS ORDERED: ASPIRIN 81 MG CHEW (CHILDREN'S ASA) PO ONE (03:00)
[2017-03-22] MEDS ORDERED: ONDANSETRON 4 MG/2 ML (SDV) Z0FRAN IVP ONE (03:00)
[2017-03-22] MEDS ORDERED: PANTOPRAZOLE 40 MG/10 ML (PROTONIX) VIAL IV ONE (03:00)
[2017-03-22] MEDS ORDERED: NS IV 1000 ML 1,000 ML IV ONE (03:02)
[2017-03-22 03:06] LABS: INR 1.1 (0.8-1.4); PROTHROMBIN TIME PATIENT 13.4 SEC (12.2-14.7)
--- NOTE | 2017-03-22 03:08 | ED Chest Pain ---
General Chief Complaint: Chest Pain Stated Complaint: HEART BURN Source: patient (VERY POOR/VAGUE HISTORIAN AND CAN GIVE NO RELEVANT PMH, OTHER THAN HE IS DIABETIC), old records History of Present Illness Time seen by provider: 02:42 Initial Comments PT ARRIVES VIA POV--DROVE HIMSELF HERE, LIVES ALONE C/O SEVERE "HEARTBURN" ALL EVENING--SINCE 1600 YESTERDAY AFTERNOON 03/21/17 C/O NAUSEA,NO VOMITING DENIES SHORTNESS OF BREATH, BUT APPEARS TO HAVE MILDLY LABORED BREATHING NO SWELLING STATES HE HAS HAD THIS A COUPLE OF TIMES BEFORE, BUT GOES AWAY WITH A GLASS OF MILK--DID NOT TONIGHT. STATES HE THINKS IT IS FROM EATING [place] FOOD-- SYMPTOMS BEGAN RIGHT AFTER HE ATE, BUT HE DID NOT EAT ANY THING HE DOES NOT NORMALLY EAT, AND HAS NOT HAD PROBLEMS LIKE THIS AFTER WARDS. NO OTHER RELEVANT INFORMATION IS OBTAINABLE FROM PT [facility]CP[facility] [place] [place] Allergies and Home Medications Allergies Coded Allergies: No Known Drug Allergies (Unverified , 11/29/11) Home Medications Allopurinol 300 Mg Tab, 300 MG PO DAILY, (Reported) Calcium Carb/D3/Mag Aa Chelate 1 Each Capsule, 1 CAP PO DAILY, (Reported) Ferrous Sulfate 325 Mg Tablet, 325 MG PO HS, (Reported) Levothyroxine Sodium 25 Mcg Tablet, 25 MCG PO DAILY, (Reported) Lisinopril 10 Mg Tablet, 2.5 MG PO BID, (Reported) Metformin Hcl 500 Mg Tablet, 1,000 MG PO BID, (Reported) [place]-3 Fatty Acids/Fish Oil 1 Each Capsule, 1,000 MG PO DAILY, (Reported) Omeprazole 20 Mg Capsule.dr, 20 MG PO BID, (Reported) Oxybutynin Chloride 5 Mg Tablet, #60 (Reported) Rosuvastatin Calcium 40 Mg Tablet, 20 MG PO HS, (Reported) Terazosin Hcl 10 Mg Capsule, 10 MG PO HS, (Reported) Tramadol Hcl 50 Mg Tablet, 100 MG PO BID, (Reported) Review of Systems Constitutional: No diaphoresis Respiratory: See HPI Cardiovascular: See HPI, Chest Pain, Denies Edema Gastrointestinal: Abdominal Pain (EPIGASTRIC), Nausea, Other ("HEARTBURN" ) Musculoskeletal: No back pain Psychiatric/Neurological: No Symptoms Reported Past Mxaddys-Dijllc-Buximb Hx Patient Social History Alcohol Use: Denies Use Recreational Drug Use: No Smoking Status: Former Smoker Type Used: Cigarettes Former Smoker/When Quit: Mar 26, 2010 Recent Foreign Travel: No Contact w/Someone Who Travel: No Recent Hopitalizations: No Immunizations Up To Date Tetanus Booster (TDap): Unknown PED Vaccines UTD: No Date of Influenza Vaccine: Aug 26, 2011 Seasonal Allergies Seasonal Allergies: No Surgeries HX Surgeries: Yes (ANEURYSM REPAIR,? ERCP? ; CARDIAC CATH--? STENT ? ; LEFT PAROTID GLAND SURGERY FOR CANCER) Surgeries: Abdominal, Coronary Stent, Gallbladder Respiratory Hx Respiratory Disorders: No Cardiovascular Hx Cardiac Disorders: Yes Cardiac Disorders: Coronary Artery Disease, High Cholesterol, Hypertension Neurological Hx Neurological Disorders: Yes (pt stated had a stroke 15 years ago but has not been diagnosed) Reproductive System Hx Reproductive Disorders: No Sexually Transmitted Disease: No HIV/AIDS: No Genitourinary Hx Genitourinary Disorders: Yes (CHRONIC RENAL INSUFFICIENCY) Genitourinary Disorders: Prostate Problems Gastrointestinal Hx Gastrointestinal Disorders: Yes (HX OF GALLSTONES--S/P OWEN AND POSSIBLY ERCP) Gastrointestinal Disorders: Gastroesophageal Reflux, Ulcer, Gall Bladder Disease Musculoskeletal Hx Musculoskeletal Disorders: No Musculoskeletal Disorders: Arthritis, Chronic Back Pain, Gout Endocrine Hx Endocrine Disorders: Yes Endocrine Disorders: Diabetes, Insulin dep, Hypothyroidsim HEENT HX 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) HEENT Disorders: Cataract, Glaucoma Loss of Vision: Bilateral Hearing Impairment: Denies 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) Cancer: Skin Psychosocial Hx Psychiatric Problems: Yes Behavioral Health Disorders: Depression Integumentary HX Skin/Integumentary Disorder: Yes (hx of skin cancer) Blood Transfusions Hx Blood Disorders: No Adverse Reaction to a Blood Tr: No Physical Exam Vital Signs Vital Sign - Last 12Hours 03/22/17 02:41 Temp 96.0 Pulse 80 Resp 24 B/P (MAP) 121/79 Pulse Ox 98 O2 Delivery Room Air Capillary Refill : General Appearance: WD/WN, Other (MILDLY DYSPNEIC) HEENT: PERRL/EOMI Neck: Non Tender, Supple Respiratory: Normal Breath Sounds, No Accessory Muscle Use, Other (MILDLY DYSPNEIC) Cardiovascular: Regular Rate, Rhythm, No Edema, No JVD, No Murmur, Other ( PEDAL PULSES VERY FAINT) Gastrointestinal: Soft, Tenderness (SIGNIFICANT EPIGASTRIC TENDERNESS. ? PULSATILE MASS IN EPIGASTRIC AREA ? --HAS HISTORY OF AORTIC ANEURYSM REPAIR. ) Extremity: Normal Capillary Refill, Normal Range of Motion, Non Tender, No Calf Tenderness, No Pedal Edema Neurologic/Psychiatric: Alert, Oriented x3, No Motor/Sensory Deficits, liner man II- XII Norm as Tested, Other (SOMEWHAT ANXIOUS) Skin: Normal Color, Warm/Dry, Other (LARGE TICK TO LEFT LOWER LEG WITH MILD LOCAL INFLAMMATION--TICK REMOVED WITH FORCEPS, HEAD APPEARS INTACT. ) Progress/Results/Core Measures Results/Orders Lab Results Laboratory Tests Test 03/22/17 02:50 Range/Units White Blood Count 11.8 H 4.3-11.0 10^3/uL Red Blood Count 4.32 L 4.35-5.85 10^6/uL Hemoglobin 14.0 13.3-17.7 G/DL Hematocrit 42 40-54 % Mean Corpuscular Volume 97 80-99 FL Mean Corpuscular Hemoglobin 32 25-34 PG Mean Corpuscular Hemoglobin Concent 34 32-36 G/DL Red Cell Distribution Width 14.0 10.0-14.5 % Platelet Count 268 130-400 10^3/uL Mean Platelet Volume 9.9 7.4-10.4 FL Neutrophils (%) (Auto) 76 H 42-75 % Lymphocytes (%) (Auto) 18 12-44 % Monocytes (%) (Auto) 5 0-12 % Eosinophils (%) (Auto) 1 0-10 % Basophils (%) (Auto) 0 0-10 % Neutrophils # (Auto) 9.0 H 1.8-7.8 X 10^3 Lymphocytes # (Auto) 2.1 1.0-4.0 X 10^3 Monocytes # (Auto) 0.6 0.0-1.0 X 10^3 Eosinophils # (Auto) 0.1 0.0-0.3 10^3/uL Basophils # (Auto) 0.0 0.0-0.1 10^3/uL Prothrombin Time 13.4 12.2-14.7 SEC INR Comment 1.1 0.8-1.4 Activated Partial Thromboplast Time 25 24-35 SEC Sodium Level 138 135-145 MMOL/L Potassium Level 3.7 3.6-5.0 MMOL/L Chloride Level 103 98-107 MMOL/L Carbon Dioxide Level 17 L 21-32 MMOL/L Anion Gap 18 H 5-14 MMOL/L Blood Urea Nitrogen 19 H 7-18 MG/DL Creatinine 1.49 H 0.60-1.30 MG/DL Estimat Glomerular Filtration Rate 45 BUN/Creatinine Ratio 13 0-20 Glucose Level 161 H 70-105 MG/DL Calcium Level 9.5 8.5-10.1 MG/DL Magnesium Level 1.5 L 1.8-2.4 MG/DL Total Bilirubin 1.8 H 0.1-1.0 MG/DL Aspartate Amino Transf (AST/SGOT) 461 H 5-34 U/L Alanine Aminotransferase (ALT/SGPT) 243 H 0-55 U/L Alkaline Phosphatase 1635 H 40-136 U/L Total Creatine Kinase 28 L 30-200 U/L Creatine Kinase MB 1.0 <6.6 NG/ML Troponin I < 0.30 <0.30 NG/ML B-Type Natriuretic Peptide 103.2 H <100.0 PG/ML Total Protein 6.8 6.4-8.2 GM/DL Albumin 3.4 3.2-4.5 GM/DL Amylase Level 60 25-125 U/L Lipase 63 8-78 U/L My Orders Orders - DAY GAYLE K DO Amylase (03/22/17 02:53) Cbc With Automated Diff (03/22/17 02:53) Comprehensive Metabolic Panel (03/22/17 02:53) Creatine Kinase (03/22/17 02:53) Creatine Kinase Mb (03/22/17 02:53) Lipase (03/22/17 02:53) Partial Thromboplastin Time (03/22/17 02:53) Protime With Inr (03/22/17 02:53) Troponin I (03/22/17 02:53) Chest 1 View, Ap/Pa Only (03/22/17 02:53) O2 (03/22/17 02:53) Ekg Tracing (03/22/17 02:53) Aspirin Chewable Tablet (Baby Aspirin Ch (03/22/17 03:00) Rx-Nitroglycerin Sl Tabs (Rx-Nitrostat S (03/22/17 03:00) BNP (03/22/17 02:53) Monitor-Rhythm Ecg Trace Only (03/22/17 02:53) Saline Lock/Iv-Start (03/22/17 02:53) Magnesium (03/22/17 02:53) Ondansetron Injection (Zofran Injectio (03/22/17 03:00) Morphine Injection (Morphine Injection (03/22/17 02:53) Pantoprazole Injection (Protonix Injecti (03/22/17 03:00) Aspirin Chewable Tablet (Baby Aspirin Ch (03/22/17 02:51) Rx-Nitroglycerin Sl Tabs (Rx-Nitrostat S (03/22/17 02:51) Saline Lock/Iv-Start (03/22/17 03:02) Ns Iv 1000 Ml (Sodium Chloride 0.9%) (03/22/17 03:02) Fentanyl Injection (Sublimaze Injection (03/22/17 03:47) Fentanyl Injection (Sublimaze Injection (03/22/17 04:12) Medications Given in ED Current Medications Medications Dose Ordered Sig/Steven Route Start Time Stop Time Status Last Admin Dose Admin Aspirin 324 mg ONCE ONCE PO 03/22/17 03:00 03/22/17 03:01 DC 03/22/17 02:57 324 MG Nitroglycerin 0.4 mg UD PRN SL 03/22/17 03:00 03/22/17 02:57 0.4 MG Ondansetron HCl 4 mg ONCE ONCE IVP 03/22/17 03:00 03/22/17 03:01 DC 03/22/17 03:01 4 MG Pantoprazole 40 mg ONCE ONCE IV 03/22/17 03:00 03/22/17 03:01 DC 03/22/17 03:02 40 MG Sodium Chloride 1,000 ml @ 0 mls/hr Q0M ONCE IV 03/22/17 03:02 03/22/17 03:03 DC 03/22/17 03:09 999 MLS/HR Vital Signs/I&O Vital Sign - Last 12Hours 03/22/17 03/22/17 02:41 02:41 Temp 96.0 Pulse 80 Resp 24 B/P (MAP) 121/79 Pulse Ox 98 O2 Delivery Room Air Room Air Progress Note : Progress Note NO RELIEF WITH NTG AND BP DROPPED --BP UP WITH FLUID BOLUS PAIN IMPROVED WITH MORPHINE AND FENTANYL NAUSEA IMPROVED WITH ZOFRAN OTHERWISE UNEVENTFUL STAY AGAIN PT IS VERY POOR HISTORIAN, BUT PT HAD OPEN OWEN IN 2016 AND HAS HAD ERCP BEFORE THAT THAT FOR SIMILAR PROBLEM ?? PT SEEN HERE IN [facility] --WAS HAVING SIMILAR SYMPTOMS TODAY WAS SEEN HERE 03/2016 FOR SIMILAR AND HAD ELEVATED LFT'S AND APPARENTLY HAD NOT HAD HIS GALLBLADDER REMOVED AT THAT POINT--AND WAS TRANSFERRED TO IN AT THAT TIME. BILI 1.0, AST 570, ALT 202, AP 188 PT HAD NORMAL LFT'S ON MOST RECENT VISIT HERE ON 12/22/16 FOR UNRELATED PROBLEM ( HYPOGLYCEMIC EPISODE ) --BILI 0.7, AST 27, ALT 18, AP 140 MARKED DELAY IN TRANSFER, EMS WILL NOT TRANSFER PT UNTIL AFTER 0800, PER THEIR POLICY Departure Communication Progress Notes [id number]--PAGED/SPOKE WITH DR. MCKAY, ADVISES TRANSFER TO IN IN 0354--CALLED IN IN ( ALSO PT'S PREFERENCE ) 0357--SPOKE WITH DR. URIARTE, ER PHYSICIAN, THEY ARE ON FULL DIVERSION--THEY HAVE NO BEDS, AND HE REPORTS THAT THEY NORMALLY DO NOT DO ERCP'S THERE EITHER, AND ADVISES TRANSFER TO [place], WHICH IS [facility] WITH ERCP CAPABILITIES 0401--CALLED [facility] DIRECT CALL ( PT PREFERENCE ) 0405--SPOKE WITH DR. RIZVI, GI POWER PRESS TENDER. HE ADVISES TO ADMIT TO HOSPITALIST AND HE WILL SEE PT IN CONSULT. HE DOES NOT ADVISE ANY RADIOLOGY STUDIES AT THIS TIME 0410--SPOKE WITH DR. CRENSHAW, HOSPITALIST AT [facility]. ACCEPTS PT FOR DIRECT ADMIT. HE ALSO DOES NOT ADVISE ANY RADIOLOGY STUDIES AT THIS TIME. Impression Impression: Primary Impression: Biliary colic Additional Impressions: Epigastric abdominal pain Elevated liver enzymes INCIDENTAL TICK REMOVAL FROM LEFT LOWER LEG Disposition: 02 XFER SHT-TRM HOSP Condition: Improved Departure-Patient Inst. Referrals: NO,LOCAL PHYSICIAN (PCP/Family) Primary Care Physician DAY GAYLE DO Mar 22, 2017 03:08
[2017-03-22 03:23] LABS: ALANINE AMINOTRANSFERASE 243 U/L (0-55); ALBUMIN 3.4 GM/DL (3.2-4.5); AMYLASE 60 U/L (25-125); ANION GAP 18 MMOL/L (5-14); ASPARTATE AMINO TRANSFERASE 461 U/L (5-34); BILIRUBIN,TOTAL 1.8 MG/DL (0.1-1.0); BLOOD UREA NITROGEN 19 MG/DL (7-18); BUN/CREATININE RATIO 13 (0-20); CALCIUM 9.5 MG/DL (8.5-10.1); CARBON DIOXIDE 17 MMOL/L (21-32); CHLORIDE 103 MMOL/L (98-107); CREATINE KINASE 28 U/L (30-200); CREATININE SERUM 1.49 MG/DL (0.60-1.30); GFR ESTIMATED 45; GLUCOSE 161 MG/DL (70-105); HEMOLYSIS 14 (-100-29); ICTERUS 1.3 (-100-1.9); LIPASE 63 U/L (8-78); LIPEMIA 0 (-100-49); MAGNESIUM 1.5 MG/DL (1.8-2.4); POTASSIUM 3.7 MMOL/L (3.6-5.0); SODIUM 138 MMOL/L (135-145); TOTAL PROTEIN 6.8 GM/DL (6.4-8.2)
[2017-03-22 03:30] LABS: TROPONIN I < 0.30 NG/ML (<0.30)
[2017-03-22] MEDS ORDERED: OXYB5TAB9 (03:40)
[2017-03-22] MEDS ORDERED: fentaNYL INJECTION 100 MCG/2 ML AMP IVP STA ×2 (03:47→04:12)
[2017-03-22 06:57] VITALS: BP 148/77
--- NOTE | 2017-03-22 08:21 | Diagnostic Imaging Report ---
EXAMINATION: Portable upright radiograph of the chest. INDICATION: Epigastric pain. Nausea and heart burn. FINDINGS: The lungs are clear. The heart size is normal. There is no effusion or pneumothorax. The mediastinum and riley appear unremarkable. IMPRESSION: Unremarkable exam. Dictated by: Dictated on workstation # [id number]
--- OUTSIDE RECORDS SUMMARY | 2017-03-22 09:47 | XMS REPORT | Continuity of Care Document ---
Author Author [facility] Organization [facility] Address Unknown Phone Unavailable Allergies Active Description Code Type Severity Reaction Onset Reported/Identified Relationship to Patient Clinical Status Yes No Known Drug Allergies [id number] Drug Allergy Unknown N/ A 11/29/2011 Medications Problems Date Dx Coded Attending Type Code Diagnosis Diagnosed By 11/29/2011 Ot 724.2 LUMBAGO 04/17/2014 LOUIS MIX MD Ot 414.01 CORONARY ATHEROSCLEROSIS OF [place] CORON 04/17/2014 LOUIS MIX MD Ot 593.9 RENAL URETERAL DIS NOS 04/17/2014 LOUIS MIX MD Ot 786.50 CHEST PAIN NOS 04/17/2014 LOUIS MIX MD Ot 789.01 ABDOMINAL PAIN, RIGHT UPPER QUADRANT 04/11/2016 MARIANA RUCKER MD Ot I25.10 ATHSCL HEART DISEASE OF [place] CORONARY 04/11/2016 MARIANA RUCKER MD Ot I70.0 [...] PAROTID GLAND 11/22/2016 JOSÉ BRYANT MD 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 11/22/2016 JOSÉ BRYANT MD Ot Z51.0 ENCOUNTER FOR ANTINEOPLASTIC RADIATION T 11/23/2016 JOSÉ BRYANT MD 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 11/23/2016 JOSÉ BRYANT MD Ot Z51.0 ENCOUNTER FOR ANTINEOPLASTIC RADIATION T 12/07/2016 JOSÉ BRYANT MD 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 12/08/2016 JOSÉ BRYANT MD 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 12/22/2016 ARCHIE GONZALES MD Ot 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 12/22/2016 ARCHIE GONZALES MD Ot I10 ESSENTIAL (PRIMARY) HYPERTENSION 12/22/2016 ARCHIE GONZALES MD Ot I25.10 ATHSCL HEART DISEASE OF [place] CORONARY 12/22/2016 ARCHIE GONZALES MD Ot I45.10 UNSPECIFIED RIGHT BUNDLE-BRANCH BLOCK 12/22/2016 ARCHIE GONZALES MD Ot Z79.84 [facility] (CURRENT) USE OF ORAL HYPOGLYC 12/22/2016 ARCHIE GONZALES MD Ot Z79.899 OTHER [facility] (CURRENT) DRUG THERAPY 01/11/2017 JOSÉ BRYANT MD 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 01/11/2017 JOSÉ BRYANT MD 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 01/12/2017 JOSÉ BRYANT MD 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 01/17/2017 JOSÉ BRYANT MD 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 01/19/2017 JOSÉ BRYANT MD 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 02/16/2017 FAITH TABARES MD Ot 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, STAGE 3 02/16/2017 FAITH TABARES MD Ot R54 AGE-RELATED PHYSICAL DEBILITY 03/01/2017 JOSÉ BRYANT MD 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 03/07/2017 JOSÉ BRYANT MD 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 03/08/2017 JOSÉ BRYANT MD 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 03/09/2017 JOSÉ BRYANT MD 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 03/16/2017 JOSÉ BRYANT MD 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 03/16/2017 JOSÉ BRYANT MD 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 03/17/2017 JOSÉ BRYANT MD 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 03/17/2017 MANNY LEDEZMA, JOSÉ Bryson Ot Z95.828 PRESENCE OF OTHER VASCULAR IMPLANTS AND Procedures Results Test Result Range Capillary blood [...] Status Pt. Type Provider Facility Loc./Unit Complaint [id number] 02/16/2017 13:37:00 2016 16:00:00 DIS Outpatient RAYSA LEDEZMA, FAITH Roy [facility] WOUNDCARE [id number] 12/22/2016 13:36:00 2016 17:46:00 DIS Emergency JANET LEDEZMA, ARCHIE Peters [facility] ER LOW BLOOD SUGAR [id number] 10/26/2016 12:21:00 2016 00:01:00 DIS Outpatient JOSÉ BRYANT MD [facility] ONC [id number] 04/11/2016 04:05:00 2015 09:34:00 DIS Emergency CHAIM LEDEZMA, MARIANA Matthews [facility] ER CHEST PAIN, SOA [id number] 04/16/2014 12:00:00 2013 17:23:00 DIS Inpatient MARIA DEL ROSARIO LEDEZMA, LOUIS Peters [facility] ICU CHEST PAIN ABD PAIN [id number] 03/16/2017 13:28:00 ACT Outpatient JOSÉ BRYANT MD [facility] RAD PAROTID CANCER [id number] 03/08/2017 13:06:00 ACT Outpatient JOSÉ BRYANT MD [facility] ONC [id number] 12/07/2016 15:12:00 ACT Outpatient JOSÉ BRYANT MD [facility] ONC [id number] 11/29/2011 07:58:00 Document Registration
== END 2017-03-22 06:57 ==
LOC: EDUNIT# 02:39 → ER 02:42
DX: S80.852A Superficial foreign body, left lower leg, initial encounter (principal); K80.50 Calculus of bile duct without cholangitis or cholecystitis without obstruction; R94.5 Abnormal results of liver function studies; I25.10 Atherosclerotic heart disease of native coronary artery without angina pectoris; I12.9 Hypertensive chronic kidney disease with stage 1 through stage 4 chronic kidney disease, or unspecified chronic kidney disease; E11.22 Type 2 diabetes mellitus with diabetic chronic kidney disease; N18.9 Chronic kidney disease, unspecified; E03.9 Hypothyroidism, unspecified; E78.00 Pure hypercholesterolemia, unspecified; K21.9 Gastro-esophageal reflux disease without esophagitis; F32.9 Major depressive disorder, single episode, unspecified; Z79.84 Long term (current) use of oral hypoglycemic drugs; Z87.891 Personal history of nicotine dependence; Z95.5 Presence of coronary angioplasty implant and graft; Z87.19 Personal history of other diseases of the digestive system; Z85.858 Personal history of malignant neoplasm of other endocrine glands; Z85.828 Personal history of other malignant neoplasm of skin; X58.XXXA Exposure to other specified factors, initial encounter
CPT/HCPCS: 36415; 71010; 80053; 82150; 82550; 82553; 83690; 83735; 83880; 84484; 85025; 85610; 85730; 93005; 93041; 96361; 96374; 96375

== ENCOUNTER → 2017-05-09 | Outpatient (CLI) | payer OTHER, MEDICARE ==
[~2017-05-09] MED LIST changes: +OXYB5TAB9
== END ==
LOC: WOUNDCARE 12:26
PROVIDERS: ATTEND Surgery
DX: M27.2 Inflammatory conditions of jaws (principal); C07 Malignant neoplasm of parotid gland; S01.502A Unspecified open wound of oral cavity, initial encounter; W88.0XXA Exposure to X-rays, initial encounter
CPT/HCPCS: 99213

== ENCOUNTER → 2017-05-20 | Outpatient (CLI) | payer OTHER, MEDICARE | LOC: WOUNDCARE 10:40 | PROVIDERS: ATTEND Surgery | DX: M27.2 Inflammatory conditions of jaws (principal); C07 Malignant neoplasm of parotid gland; S01.502A Unspecified open wound of oral cavity, initial encounter; W88.0XXA Exposure to X-rays, initial encounter | CPT/HCPCS: 99212 ==

== ENCOUNTER → 2017-05-27 | Outpatient (CLI) | payer OTHER, MEDICARE | LOC: WOUNDCARE 10:13 | PROVIDERS: ATTEND Surgery | DX: M27.2 Inflammatory conditions of jaws (principal); C07 Malignant neoplasm of parotid gland; S01.502A Unspecified open wound of oral cavity, initial encounter; W88.0XXA Exposure to X-rays, initial encounter | CPT/HCPCS: 99212 ==

== ENCOUNTER → 2017-06-03 | Outpatient (CLI) | payer OTHER, MEDICARE ==
[~2017-06-03] MED LIST changes: +BISA5TAB49 PO; +DOCU-238 PO; +LEVO25TA5 PO
== END ==
LOC: WOUNDCARE 10:17
PROVIDERS: ATTEND Surgery
DX: M27.2 Inflammatory conditions of jaws (principal); S01.502A Unspecified open wound of oral cavity, initial encounter; C07 Malignant neoplasm of parotid gland; W88.0XXA Exposure to X-rays, initial encounter
CPT/HCPCS: 99212

== ENCOUNTER → 2017-06-08 | Outpatient (CLI) | payer OTHER, MEDICARE | LOC: WOUNDCARE 10:20 | PROVIDERS: ATTEND Surgery | DX: M27.2 Inflammatory conditions of jaws (principal) ==

== ENCOUNTER → 2017-06-15 | Outpatient (CLI) | payer OTHER, MEDICARE | LOC: WOUNDCARE 07:51 | PROVIDERS: ATTEND Surgery | DX: M27.2 Inflammatory conditions of jaws (principal); W88.0XXA Exposure to X-rays, initial encounter; S01.502A Unspecified open wound of oral cavity, initial encounter; C07 Malignant neoplasm of parotid gland | CPT/HCPCS: 99212 ==

== ENCOUNTER 2017-06-24 07:53 | Outpatient (RCR) | payer OTHER, MEDICARE | END 2017-06-25 | disposition home or self-care (01) | LOC: WOUNDCARE 07:53 | PROVIDERS: ATTEND Surgery | DX: M27.2 Inflammatory conditions of jaws (principal); C07 Malignant neoplasm of parotid gland; S01.502A Unspecified open wound of oral cavity, initial encounter; W88.0XXA Exposure to X-rays, initial encounter | CPT/HCPCS: 82962; 99183; 99211 ==

== ENCOUNTER → 2017-06-24 | Outpatient (CLI) | payer OTHER, MEDICARE ==
[~2017-06-24] MED LIST changes: -BISA5TAB49 PO; -DOCU-238 PO; -LEVO25TA5 PO
== END ==
LOC: WOUNDCARE 07:52
PROVIDERS: ATTEND Surgery
DX: M27.2 Inflammatory conditions of jaws (principal); C07 Malignant neoplasm of parotid gland; S01.502A Unspecified open wound of oral cavity, initial encounter; W88.0XXA Exposure to X-rays, initial encounter
CPT/HCPCS: 99183

== ENCOUNTER → 2017-06-29 | Outpatient (CLI) | payer OTHER, MEDICARE | LOC: WOUNDCARE 07:57 | PROVIDERS: ATTEND Surgery | DX: M27.2 Inflammatory conditions of jaws (principal); C07 Malignant neoplasm of parotid gland; S01.502A Unspecified open wound of oral cavity, initial encounter; W88.0XXA Exposure to X-rays, initial encounter ==

== ENCOUNTER → 2017-07-04 | Outpatient (CLI) | payer OTHER, MEDICARE | LOC: WOUNDCARE 07:58 | PROVIDERS: ATTEND Surgery | DX: M27.2 Inflammatory conditions of jaws (principal); S01.502A Unspecified open wound of oral cavity, initial encounter; C07 Malignant neoplasm of parotid gland ==

== ENCOUNTER → 2017-07-13 | Outpatient (CLI) | payer OTHER, MEDICARE | LOC: WOUNDCARE 07:55 | PROVIDERS: ATTEND Surgery | DX: M27.2 Inflammatory conditions of jaws (principal); S01.502A Unspecified open wound of oral cavity, initial encounter; C07 Malignant neoplasm of parotid gland | CPT/HCPCS: 99212 ==

== ENCOUNTER → 2017-07-18 | Outpatient (CLI) | payer OTHER, MEDICARE | LOC: WOUNDCARE 08:00 | PROVIDERS: ATTEND Surgery | DX: M27.2 Inflammatory conditions of jaws (principal); S01.502A Unspecified open wound of oral cavity, initial encounter; C07 Malignant neoplasm of parotid gland | CPT/HCPCS: 99212 ==

== ENCOUNTER 2017-07-19 08:00 | Outpatient (RCR) | payer OTHER, MEDICARE | END 2017-07-19 12:00 | disposition home or self-care (01) | LOC: WOUNDCARE 08:00 | PROVIDERS: ATTEND Surgery | DX: M27.2 Inflammatory conditions of jaws (principal); C07 Malignant neoplasm of parotid gland; S01.502A Unspecified open wound of oral cavity, initial encounter; W88.0XXA Exposure to X-rays, initial encounter | CPT/HCPCS: 99183 ==

== ENCOUNTER 2018-07-17 05:47 | Outpatient (CLI) | payer MEDICARE ==
[~2018-07-17] VITALS: Ht 172.7 cm; Wt 65.9 kg
[~2018-07-17 05:47] MED LIST changes: +BISA5TAB49 PO; +DOCU-238 PO; +LEVO25TA5 PO
[2018-07-17] MEDS ORDERED: ALLO300T2 PO (14:08)
[2018-07-17] MEDS ORDERED: LEVO50TA6 PO (14:08)
== END 2018-07-17 14:11 | disposition home or self-care (01) ==
LOC: PREOP 05:47
PROVIDERS: ATTEND Surgery
DX: Z01.818 Encounter for other preprocedural examination (principal)

== ENCOUNTER 2018-07-21 09:25 | Day surgery (SDC) | payer MEDICARE ==
[~2018-07-21] VITALS: Ht 172.7 cm; Wt 65.9 kg
[~2018-07-21 09:25] MED LIST changes: +LEVO50TA6 PO
--- OUTSIDE RECORDS SUMMARY | 2018-07-21 10:02 | XMS REPORT | Continuity of Care Document ---
Author Author [facility] Organization [facility] Address Unknown Phone Unavailable Allergies Active Description Code Type Severity Reaction Onset Reported/Identified Relationship to Patient Clinical Status Yes NO KNOWN DRUG ALLERGIES UNKNOWN NO KNOWN DRUG ALLERG Yes No Known Drug Allergies [id number] Drug Allergy Unknown N/A 07/17/2018 Medications Medication Packaging Start Date Stop Date Route Dosage Sig Haloperidol 0.25mg (Haldol) oral tablet MG 10/26/2017 11/05/2017 PRN Q6H ACETAMINOPHEN ORAL TABLET 325mg(Tylenol) MG 10/26/2017 11/02/2017 PRN EVERY 6 Hour CALMOSEPTINE OINT TUBE (RISAMINE OINT) raul 10/26/2017 11/25/2017 PRN QID LORAZEPAM TAB 0.5 MG (ATIVAN) MG 11/25/2017 PRN Q6H POLYETHYLENE GLYCOL POWDER UD PWD (MIRALAX 17GM UNIT DOSE PAKS) gm 10/26/2017 11/25/2017 PRN Q3H ALUM/MAG/SIMETH 30CC LIQ (MYLANTA PLUS) cc 10/26/2017 11/25/2017 PRN Q4H LACTULOSE SYRUP LIQ 20 GM/30CC (CHRONULAC SYRUP) GM 10/26/2017 11/25/2017 BID&0800,2000 MILK OF MAGNESIA LIQ ml 10/26/2017 11/02/2017 PRN BID TRAZODONE TAB 50 MG (DESYREL) MG 11/25/2017 PRN QHS MELATONIN TAB 3 MG (MELATONIN) MG 10/26/2017 11/25/2017 PRN QHS BISACODYL SUPPOS 10 MG (DULCOLAX SUPPOS) MG 10/27/2017 11/26/2017 PRN Daily MIRTAZAPINE TAB 15 MG (REMERON) MG 10/27/2017 11/25/2017 QHS&2100 CEFTRIAXONE INJ 1 GM (ROCEPHIN) GM 10/28/2017 11/03/2017 Daily&0900 IBUPROFEN TAB 400 MG (MOTRIN) MG 11/29/2017 PRN Q6H Problems Date Dx Coded Attending Type Code Diagnosis Diagnosed By 08/25/1199 FAITH TABARES MD, 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 08/25/1199 FAITH TABARES MD Ot M27.2 INFLAMMATORY CONDITIONS OF JAWS 08/25/1199 FAITH TABARES MD Ot S01.502A UNSPECIFIED OPEN WOUND OF ORAL CAVITY, I 08/25/1199 FAITH TABARES MD, Ot W88.0XXA EXPOSURE TO X-RAYS, INITIAL ENCOUNTER 11/29/2011 Ot 724.2 LUMBAGO 04/17/2014 LOUIS MIX MD Ot 414.01 CORONARY ATHEROSCLEROSIS OF [place] CORON 04/17/2014 LOUIS MIX MD Ot 593.9 RENAL URETERAL DIS NOS 04/17/2014 LOUIS MIX MD Ot 786.50 CHEST PAIN NOS 04/17/2014 LOUIS MXI MD Ot 789.01 ABDOMINAL PAIN, RIGHT UPPER QUADRANT 04/11/2016 MARIANA RUCKER MD Ot I25.10 ATHSCL HEART DISEASE OF [place] CORONARY 04/11/2016 MARIANA RUCKER MD Ot I70.0 ATHEROSCLEROSIS OF [place] 04/11/2016 MARIANA RUCKER MD Ot 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 04/11/2016 MRAIANA RUCKER MD Ot 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] [place] 03/17/2017 JOSÉ BRYANT MD Ot Z95.828 PRESENCE OF OTHER VASCULAR IMPLANTS AND 03/22/2017 DAY GAYLE DO Ot E03.9 HYPOTHYROIDISM, UNSPECIFIED 03/22/2017 DAY GAYLE DO Ot 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 03/22/2017 DAY GAYLE DO Ot E78.00 PURE HYPERCHOLESTEROLEMIA, UNSPECIFIED 03/22/2017 DAY GAYLE DO Ot F32.9 MAJOR DEPRESSIVE DISORDER, SINGLE EPISOD 03/22/2017 DAY GAYLE DO Ot I12.9 HYPERTENSIVE CHRONIC KIDNEY DISEASE W ST 03/22/2017 DAY GAYLE DO Ot I25.10 ATHSCL HEART DISEASE OF [place] CORONARY 03/22/2017 DAY GAYLE DO Ot K21.9 GASTRO-ESOPHAGEAL REFLUX DISEASE WITHOUT 03/22/2017 DAY GAYLE DO Ot K80.50 CALCULUS OF BILE DUCT W/O CHOLANGITIS OR 03/22/2017 DAY GAYLE DO Ot N18.9 CHRONIC KIDNEY DISEASE, UNSPECIFIED 03/22/2017 DAY GAYLE DO Ot R12 HEARTBURN 03/22/2017 DAY GAYLE DO Ot R94.5 ABNORMAL RESULTS OF LIVER FUNCTION STUDI 03/22/2017 DAY GAYLE DO Ot S80.852A SUPERFICIAL FOREIGN BODY, LEFT LOWER LEG 03/22/2017 DAY GAYLE DO Ot X58.XXXA EXPOSURE TO OTHER SPECIFIED FACTORS, INI 03/22/2017 DAY GAYLE DO Ot Z79.84 CLIENT SUPPORT PROFESSIONAL (CURRENT) USE OF ORAL HYPOGLYC 03/22/2017 DAY GAYLE DO Ot Z85.828 PERSONAL HISTORY OF OTHER MALIGNANT NEOP 03/22/2017 DAY GAYLE DO Ot Z85.858 PERSONAL HISTORY OF MALIGNANT NEOPLASM O 03/22/2017 DAY GAYLE DO Ot Z87.19 PERSONAL HISTORY OF OTHER DISEASES OF TH 03/22/2017 DAY GAYLE DO Ot Z87.891 PERSONAL HISTORY OF NICOTINE DEPENDENCE 03/22/2017 DAY GAYLE DO Ot Z95.5 PRESENCE OF CORONARY ANGIOPLASTY IMPLANT 03/24/2017 DAY GAYLE DO Ot E03.9 HYPOTHYROIDISM, UNSPECIFIED 03/24/2017 DAY GAYLE DO Ot 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 03/24/2017 DAY GAYLE DO Ot E78.00 PURE HYPERCHOLESTEROLEMIA, UNSPECIFIED 03/24/2017 DAY GAYLE DO Ot F32.9 MAJOR DEPRESSIVE DISORDER, SINGLE EPISOD 03/24/2017 DAY GAYLE DO Ot I12.9 HYPERTENSIVE CHRONIC KIDNEY DISEASE W ST 03/24/2017 DAY GAYLE DO Ot I25.10 ATHSCL HEART DISEASE OF [place] CORONARY 03/24/2017 DAY GAYLE DO Ot K21.9 GASTRO-ESOPHAGEAL REFLUX DISEASE WITHOUT 03/24/2017 DAY GAYLE DO Ot K80.50 CALCULUS OF BILE DUCT W/O CHOLANGITIS OR 03/24/2017 DAY GAYLE DO Ot N18.9 CHRONIC KIDNEY DISEASE, UNSPECIFIED 03/24/2017 DAY GAYLE DO Ot R12 HEARTBURN 03/24/2017 DAY GAYLE DO Ot R94.5 ABNORMAL RESULTS OF LIVER FUNCTION STUDI 03/24/2017 DAY GAYLE DO Ot S80.852A SUPERFICIAL FOREIGN BODY, LEFT LOWER LEG 03/24/2017 DAY GAYLE DO Ot X58.XXXA EXPOSURE TO OTHER SPECIFIED FACTORS, INI 03/24/2017 DAY GAYLE DO Ot Z79.84 CLIENT SUPPORT PROFESSIONAL (CURRENT) USE OF ORAL HYPOGLYC 03/24/2017 DAY GAYLE DO Ot Z85.828 PERSONAL HISTORY OF OTHER MALIGNANT NEOP 03/24/2017 DAY GAYLE DO Ot Z85.858 PERSONAL HISTORY OF MALIGNANT NEOPLASM O 03/24/2017 DAY GAYLE DO Ot Z87.19 PERSONAL HISTORY OF OTHER DISEASES OF TH 03/24/2017 DAY GAYLE DO Ot Z87.891 PERSONAL HISTORY OF NICOTINE DEPENDENCE 03/24/2017 DAY GAYLE DO Ot Z95.5 PRESENCE OF CORONARY ANGIOPLASTY IMPLANT 03/26/2017 DAY GAYLE DO Ot E03.9 HYPOTHYROIDISM, UNSPECIFIED 03/26/2017 DAY GAYLE DO Ot 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 03/26/2017 DAY GAYLE DO Ot E78.00 PURE HYPERCHOLESTEROLEMIA, UNSPECIFIED 03/26/2017 IRWIN DING DAY Catherine Ot F32.9 MAJOR DEPRESSIVE DISORDER, SINGLE EPISOD 03/26/2017 IRWIN DO ADY Florin Ot I12.9 HYPERTENSIVE CHRONIC KIDNEY DISEASE W ST 03/26/2017 IRWIN DO DAY Florin Ot I25.10 ATHSCL HEART DISEASE OF [place] CORONARY 03/26/2017 IRWIN DO DAY Florin Ot K21.9 GASTRO-ESOPHAGEAL REFLUX DISEASE WITHOUT 03/26/2017 IRWIN DO DAY Florin Ot K80.50 CALCULUS OF BILE DUCT W/O CHOLANGITIS OR 03/26/2017 IRWIN DO DAY Florin Ot N18.9 CHRONIC KIDNEY DISEASE, UNSPECIFIED 03/26/2017 IRWIN DAY Florin Ot R12 HEARTBURN 03/26/2017 IRWIN DING DAY Florin Ot R94.5 ABNORMAL RESULTS OF LIVER FUNCTION STUDI 03/26/2017 IRWIN DING DAY Florin Ot S80.852A SUPERFICIAL FOREIGN BODY, LEFT LOWER LEG 03/26/2017 IRWIN DING DAY Florin Ot X58.XXXA EXPOSURE TO OTHER SPECIFIED FACTORS, INI 03/26/2017 IRWIN DING DAY Florin Ot Z79.84 LONGTERM (CURRENT) USE OF ORAL HYPOGLYC 03/26/2017 IRWIN DING DAY Florin Ot Z85.828 PERSONAL HISTORY OF OTHER MALIGNANT NEOP 03/26/2017 DAY GAYLE DO Ot Z85.858 PERSONAL HISTORY OF MALIGNANT NEOPLASM O 03/26/2017 IRWIN DING DAY Florin Ot Z87.19 PERSONAL HISTORY OF OTHER DISEASES OF TH 03/26/2017 IRWIN DING DAY Florin Ot Z87.891 PERSONAL HISTORY OF NICOTINE DEPENDENCE 03/26/2017 DAY GAYLE DO Ot Z95.5 PRESENCE OF CORONARY ANGIOPLASTY IMPLANT 05/06/2017 MANNY LEDEZMA, JOSÉ Bryson 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 05/06/2017 JOSÉ BRYANT MD, 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 05/06/2017 JOSÉ BRYANT MD Ot Z95.828 PRESENCE OF OTHER VASCULAR IMPLANTS AND 05/17/2017 FAITH TABARES MD, 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 05/17/2017 FAITH TABARES MD Ot M27.2 INFLAMMATORY CONDITIONS OF JAWS 05/17/2017 FAITH TABARES MD Ot S01.502A UNSPECIFIED OPEN WOUND OF ORAL CAVITY, I 05/17/2017 FAITH TABARES MD Ot W88.0XXA EXPOSURE TO X-RAYS, INITIAL ENCOUNTER 06/03/2017 FAITH TABARES MD 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 06/03/2017 FAITH TABARES MD Ot M27.2 INFLAMMATORY CONDITIONS OF JAWS 06/03/2017 FAITH TABARES MD Ot S01.502A UNSPECIFIED OPEN WOUND OF ORAL CAVITY, I 06/03/2017 FAITH TABARES MD Ot W88.0XXA EXPOSURE TO X-RAYS, INITIAL ENCOUNTER 06/06/2017 MANNY LEDEZMA, JOSÉ Bryson 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 06/08/2017 FAITH TABARES MD 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 06/08/2017 FAITH TABARES MD Ot M27.2 INFLAMMATORY CONDITIONS OF JAWS 06/08/2017 FAITH TABARES MD Ot S01.502A UNSPECIFIED OPEN WOUND OF ORAL CAVITY, I 06/08/2017 FAITH TABARES MD, Ot W88.0XXA EXPOSURE TO X-RAYS, INITIAL ENCOUNTER 06/09/2017 FAITH TABARES MD 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 06/09/2017 FAITH TABARES MD Ot M27.2 INFLAMMATORY CONDITIONS OF JAWS 06/09/2017 FAITH TAABRES MD Ot S01.502A UNSPECIFIED OPEN WOUND OF ORAL CAVITY, I 06/09/2017 FAITH TABARES MD, Ot W88.0XXA EXPOSURE TO X-RAYS, INITIAL ENCOUNTER 06/09/2017 FAITH TABARES MD Ot M27.2 INFLAMMATORY CONDITIONS OF JAWS 06/22/2017 FAITH TABARES MD 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 06/22/2017 FAITH TABARES MD Ot M27.2 INFLAMMATORY CONDITIONS OF JAWS 06/22/2017 FAITH TABARES MD Ot S01.502A UNSPECIFIED OPEN WOUND OF ORAL CAVITY, I 06/22/2017 FAITH TABARES MD Ot W88.0XXA EXPOSURE TO X-RAYS, INITIAL ENCOUNTER 06/22/2017 FAITH TABARES MD 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 06/22/2017 FAITH TABARES MD Ot M27.2 INFLAMMATORY CONDITIONS OF JAWS 06/22/2017 FAITH TABARES MD Ot S01.502A UNSPECIFIED OPEN WOUND OF ORAL CAVITY, I 06/22/2017 FAITH TABARES MD Ot W88.0XXA EXPOSURE TO X-RAYS, INITIAL ENCOUNTER 06/25/2017 FAITH TABARES MD 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 06/25/2017 FAITH TABARES MD Ot M27.2 INFLAMMATORY CONDITIONS OF JAWS 06/25/2017 FAITH TABARES MD Ot S01.502A UNSPECIFIED OPEN WOUND OF ORAL CAVITY, I 06/25/2017 FAITH TABARES MD, Ot W88.0XXA EXPOSURE TO X-RAYS, INITIAL ENCOUNTER 06/27/2017 FAITH TABARES MD 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 06/27/2017 FAITH TABARES MD, Ot M27.2 INFLAMMATORY CONDITIONS OF JAWS 06/27/2017 FAITH TABARES MD Ot S01.502A UNSPECIFIED OPEN WOUND OF ORAL CAVITY, I 06/27/2017 FAITH TABARES MD, Ot W88.0XXA EXPOSURE TO X-RAYS, INITIAL ENCOUNTER 06/27/2017 FAITH TABARES MD 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 06/27/2017 FAITH TABARES MD Ot M27.2 INFLAMMATORY CONDITIONS OF JAWS 06/27/2017 FAITH TABARES MD Ot S01.502A UNSPECIFIED OPEN WOUND OF ORAL CAVITY, I 06/27/2017 FAITH TABARES MD, Ot W88.0XXA EXPOSURE TO X-RAYS, INITIAL ENCOUNTER 06/28/2017 FAITH TABARES MD, 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 06/28/2017 FAITH TABARES MD, Ot M27.2 INFLAMMATORY CONDITIONS OF JAWS 06/28/2017 FAITH TABARES MD Ot S01.502A UNSPECIFIED OPEN WOUND OF ORAL CAVITY, I 06/28/2017 FAITH TABARES MD Ot W88.0XXA EXPOSURE TO X-RAYS, INITIAL ENCOUNTER 06/28/2017 FAITH TABARES MD 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 06/28/2017 FAITH TABARES MD Ot M27.2 INFLAMMATORY CONDITIONS OF JAWS 06/28/2017 FAITH TABARES MD Ot S01.502A UNSPECIFIED OPEN WOUND OF ORAL CAVITY, I 06/28/2017 FAITH TABARES MD Ot W88.0XXA EXPOSURE TO X-RAYS, INITIAL ENCOUNTER 07/01/2017 FAITH TABARES MD, 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 07/01/2017 FAITH TABARES MD, Ot M27.2 INFLAMMATORY CONDITIONS OF JAWS 07/01/2017 FAITH TABARES MD Ot S01.502A UNSPECIFIED OPEN WOUND OF ORAL CAVITY, I 07/01/2017 FAITH TABARES MD, Ot W88.0XXA EXPOSURE TO X-RAYS, INITIAL ENCOUNTER 07/05/2017 FAITH TABARES MD, 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 07/05/2017 FAITH TABARES MD, Ot M27.2 INFLAMMATORY CONDITIONS OF JAWS 07/05/2017 FAITH TABARES MD, Ot S01.502A UNSPECIFIED OPEN WOUND OF ORAL CAVITY, I 07/09/2017 FAITH TABARES MD, 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 07/09/2017 FAITH TABARES MD, Ot M27.2 INFLAMMATORY CONDITIONS OF JAWS 07/09/2017 FAITH TABARES MD Ot S01.502A UNSPECIFIED OPEN WOUND OF ORAL CAVITY, I 07/09/2017 FAITH TABARES MD, Ot W88.0XXA EXPOSURE TO X-RAYS, INITIAL ENCOUNTER 07/10/2017 FAITH TABARES MD 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 07/10/2017 FAITH TABARES MD Ot M27.2 INFLAMMATORY CONDITIONS OF JAWS 07/10/2017 FAITH TABARES MD Ot S01.502A UNSPECIFIED OPEN WOUND OF ORAL CAVITY, I 07/19/2017 FAITH TABARES MD, 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 07/19/2017 FAITH TABARES MD Ot M27.2 INFLAMMATORY CONDITIONS OF JAWS 07/19/2017 FAITH TABARES MD Ot S01.502A UNSPECIFIED OPEN WOUND OF ORAL CAVITY, I 07/19/2017 FAITH TABARES MD Ot W88.0XXA EXPOSURE TO X-RAYS, INITIAL ENCOUNTER 08/04/2017 JOSÉ BRYANT MD 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 08/04/2017 MANNY LEDEZMA, JOSÉ Bryson Ot Z95.828 PRESENCE OF OTHER VASCULAR IMPLANTS AND 08/05/2017 UCHE RUEDA MD Ot E03.9 HYPOTHYROIDISM, UNSPECIFIED 08/05/2017 UCHE RUEDA MD Ot E11.9 TYPE 2 DIABETES MELLITUS WITHOUT COMPLIC 08/05/2017 UCHE RUEDA MD Ot E78.00 PURE HYPERCHOLESTEROLEMIA, UNSPECIFIED 08/05/2017 UCHE RUEDA MD Ot I10 ESSENTIAL (PRIMARY) HYPERTENSION 08/05/2017 UCHE RUEDA MD Ot I25.10 ATHSCL HEART DISEASE OF [place] CORONARY 08/05/2017 UCHE RUEDA MD Ot K08.109 COMPLETE LOSS OF TEETH, UNSPECIFIED CAUS 08/05/2017 UCHE RUEDA MD Ot K21.9 GASTRO-ESOPHAGEAL REFLUX DISEASE WITHOUT 08/05/2017 UCHE RUEDA MD Ot K59.00 CONSTIPATION, UNSPECIFIED 08/05/2017 UCHE RUEDA MD, Ot Z79.84 CLIENT SUPPORT PROFESSIONAL (CURRENT) USE OF ORAL HYPOGLYC 08/05/2017 UCHE RUEDA MD Ot Z79.899 OTHER CLIENT SUPPORT PROFESSIONAL (CURRENT) DRUG THERAPY 08/05/2017 UCHE RUEDA MD Ot Z95.5 PRESENCE OF CORONARY ANGIOPLASTY IMPLANT 08/11/2017 JOSÉ BRYANT MD 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 08/12/2017 JOSÉ BRYANT MD, 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 08/12/2017 JOSÉ BRYANT MD Ot Z95.828 PRESENCE OF OTHER VASCULAR IMPLANTS AND 08/12/2017 FAITH TABARES MD, 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 08/12/2017 FAITH TABARES MD, Ot M27.2 INFLAMMATORY CONDITIONS OF JAWS 08/12/2017 FAITH TABARES MD, Ot S01.502A UNSPECIFIED OPEN WOUND OF ORAL CAVITY, I 08/12/2017 FAITH TABARES MD, Ot W88.0XXA EXPOSURE TO X-RAYS, INITIAL ENCOUNTER 08/12/2017 FAITH TABARES MD, 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 08/12/2017 FAITH TABARES MD, Ot M27.2 INFLAMMATORY CONDITIONS OF JAWS 08/12/2017 FAITH TABARES MD, Ot S01.502A UNSPECIFIED OPEN WOUND OF ORAL CAVITY, I 08/12/2017 FAITH TABARES MD, Ot W88.0XXA EXPOSURE TO X-RAYS, INITIAL ENCOUNTER 08/12/2017 FAITH TABARES MD, 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 08/12/2017 FAITH TABARES MD, Ot M27.2 INFLAMMATORY CONDITIONS OF JAWS 08/12/2017 FAITH TABARES MD Ot S01.502A UNSPECIFIED OPEN WOUND OF ORAL CAVITY, I 08/12/2017 FAITH TABARES MD, Ot W88.0XXA EXPOSURE TO X-RAYS, INITIAL ENCOUNTER 08/12/2017 FAITH TABARES MD, 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 08/12/2017 FAITH TABARES MD Ot M27.2 INFLAMMATORY CONDITIONS OF JAWS 08/12/2017 FAITH TABARES MD, Ot S01.502A UNSPECIFIED OPEN WOUND OF ORAL CAVITY, I 08/12/2017 FAITH TABARES MD, Ot W88.0XXA EXPOSURE TO X-RAYS, INITIAL ENCOUNTER 08/12/2017 MANNY LEDEZMA, JOSÉ Bryson 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 08/12/2017 FAITH TABARES MD, Ot M27.2 INFLAMMATORY CONDITIONS OF JAWS 08/12/2017 FAITH TABARES MD, 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 08/12/2017 FAITH TABARES MD Ot M27.2 INFLAMMATORY CONDITIONS OF JAWS 08/12/2017 FAITH TABARES MD, Ot S01.502A UNSPECIFIED OPEN WOUND OF ORAL CAVITY, I 08/12/2017 FAITH TABARES MD, Ot W88.0XXA EXPOSURE TO X-RAYS, INITIAL ENCOUNTER 08/12/2017 FAITH TABARES MD 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 08/12/2017 FAITH TABARES MD Ot M27.2 INFLAMMATORY CONDITIONS OF JAWS 08/12/2017 FAITH TABARES MD, Ot S01.502A UNSPECIFIED OPEN WOUND OF ORAL CAVITY, I 08/12/2017 FAITH TABARES MD, Ot W88.0XXA EXPOSURE TO X-RAYS, INITIAL ENCOUNTER 08/12/2017 FAITH TABARES MD 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 08/12/2017 FAITH TABARES MD Ot M27.2 INFLAMMATORY CONDITIONS OF JAWS 08/12/2017 FAITH TABARES MD Ot S01.502A UNSPECIFIED OPEN WOUND OF ORAL CAVITY, I 08/12/2017 FAITH TABARES MD, Ot W88.0XXA EXPOSURE TO X-RAYS, INITIAL ENCOUNTER 08/12/2017 FAITH TABARES MD 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 08/12/2017 FAITH TABARES MD Ot M27.2 INFLAMMATORY CONDITIONS OF JAWS 08/12/2017 FAITH TABARES MD Ot S01.502A UNSPECIFIED OPEN WOUND OF ORAL CAVITY, I 08/12/2017 FAITH TABARES MD, 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 08/12/2017 FAITH TABARES MD, Ot M27.2 INFLAMMATORY CONDITIONS OF JAWS 08/12/2017 FAITH TABARES MD, Ot S01.502A UNSPECIFIED OPEN WOUND OF ORAL CAVITY, I 08/12/2017 FAITH TABARES MD, 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 08/12/2017 FAITH TABARES MD, Ot M27.2 INFLAMMATORY CONDITIONS OF JAWS 08/12/2017 FAITH TABARES MD, Ot S01.502A UNSPECIFIED OPEN WOUND OF ORAL CAVITY, I 08/16/2017 FAITH TABARES MD, 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 08/16/2017 FAITH TABARES MD, Ot M27.2 INFLAMMATORY CONDITIONS OF JAWS 08/16/2017 FAITH TABARES MD, Ot S01.502A UNSPECIFIED OPEN WOUND OF ORAL CAVITY, I 08/16/2017 FAITH TABARES MD, Ot W88.0XXA EXPOSURE TO X-RAYS, INITIAL ENCOUNTER 08/16/2017 FAITH TABARES MD 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 08/16/2017 FAITH TABARES MD, Ot M27.2 INFLAMMATORY CONDITIONS OF JAWS 08/16/2017 FAITH TABARES MD, Ot S01.502A UNSPECIFIED OPEN WOUND OF ORAL CAVITY, I 08/16/2017 FAITH TABARES MD, Ot W88.0XXA EXPOSURE TO X-RAYS, INITIAL ENCOUNTER 08/17/2017 FAITH TABARES MD 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 08/17/2017 FAITH TABARES MD, Ot M27.2 INFLAMMATORY CONDITIONS OF JAWS 08/17/2017 FAITH TABARES MD, Ot S01.502A UNSPECIFIED OPEN WOUND OF ORAL CAVITY, I 08/17/2017 FAITH TABARES MD, Ot W88.0XXA EXPOSURE TO X-RAYS, INITIAL ENCOUNTER 08/29/2017 MANNY LEDEZMA, JOSÉ Bryson 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 08/29/2017 MANNY LEDEZMA, JOSÉ Bryson Ot Z95.828 PRESENCE OF OTHER VASCULAR IMPLANTS AND 08/29/2017 FAIHT TABARES MD 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 08/29/2017 FAITH TABARES MD, Ot M27.2 INFLAMMATORY CONDITIONS OF JAWS 08/29/2017 FAITH TABARES MD Ot S01.502A UNSPECIFIED OPEN WOUND OF ORAL CAVITY, I 08/29/2017 FAITH TABARES MD Ot W88.0XXA EXPOSURE TO X-RAYS, INITIAL ENCOUNTER 08/29/2017 FAITH TABARES MD 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 08/29/2017 FAITH TABARES MD Ot M27.2 INFLAMMATORY CONDITIONS OF JAWS 08/29/2017 FAITH TABARES MD Ot S01.502A UNSPECIFIED OPEN WOUND OF ORAL CAVITY, I 08/29/2017 FAITH TABARES MD Ot W88.0XXA EXPOSURE TO X-RAYS, INITIAL ENCOUNTER 08/29/2017 FAITH TABARES MD 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 08/29/2017 FAITH TABARES MD Ot M27.2 INFLAMMATORY CONDITIONS OF JAWS 08/29/2017 FAITH TABARES MD Ot S01.502A UNSPECIFIED OPEN WOUND OF ORAL CAVITY, I 08/29/2017 FAITH TABARES MD Ot W88.0XXA EXPOSURE TO X-RAYS, INITIAL ENCOUNTER 08/29/2017 MANNY LEDEZMA, JOSÉ Bryson 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 08/29/2017 FAITH TABARES MD 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 08/29/2017 FAITH TABARES MD Ot M27.2 INFLAMMATORY CONDITIONS OF JAWS 08/29/2017 FAITH TABARES MD Ot S01.502A UNSPECIFIED OPEN WOUND OF ORAL CAVITY, I 08/29/2017 FAITH TABARES MD 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 08/29/2017 FAITH TABARES MD Ot M27.2 INFLAMMATORY CONDITIONS OF JAWS 08/29/2017 FAITH TABARES MD Ot S01.502A UNSPECIFIED OPEN WOUND OF ORAL CAVITY, I 08/29/2017 FAITH TABARES MD Ot W88.0XXA EXPOSURE TO X-RAYS, INITIAL ENCOUNTER 08/29/2017 FAITH TABARES MD 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 08/29/2017 FAITH TABARES MD Ot M27.2 INFLAMMATORY CONDITIONS OF JAWS 08/29/2017 FAITH TABARES MD Ot S01.502A UNSPECIFIED OPEN WOUND OF ORAL CAVITY, I 08/29/2017 FAITH TABARES MD, Ot W88.0XXA EXPOSURE TO X-RAYS, INITIAL ENCOUNTER 08/29/2017 FAITH TABARES MD 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 08/29/2017 FAITH TABARES MD Ot M27.2 INFLAMMATORY CONDITIONS OF JAWS 08/29/2017 FAITH TABARES MD Ot S01.502A UNSPECIFIED OPEN WOUND OF ORAL CAVITY, I 08/29/2017 FAITH TABARES MD, Ot W88.0XXA EXPOSURE TO X-RAYS, INITIAL ENCOUNTER 08/29/2017 MANNY LEDEZMA, JOSÉ Bryson 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 09/29/2017 FAITH TABARES MD Ot M27.2 INFLAMMATORY CONDITIONS OF JAWS 10/17/2017 FAITH TABARES MD, Ot M27.2 INFLAMMATORY CONDITIONS OF JAWS 10/20/2017 FAITH TABARES MD 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 10/20/2017 FAITH TABARES MD, Ot M27.2 INFLAMMATORY CONDITIONS OF JAWS 10/20/2017 FAITH TABARES MD Ot S01.502A UNSPECIFIED OPEN WOUND OF ORAL CAVITY, I 10/20/2017 FAITH TABARES MD, Ot W88.0XXA EXPOSURE TO X-RAYS, INITIAL ENCOUNTER 10/24/2017 MARIANA RIOS MD Ot B35.6 TINEA CRURIS 10/24/2017 MARIANA RIOS MD Ot E03.9 HYPOTHYROIDISM, UNSPECIFIED 10/24/2017 MARIANA RIOS MD Ot E78.00 PURE HYPERCHOLESTEROLEMIA, UNSPECIFIED 10/24/2017 MARIANA RIOS MD Ot E87.1 HYPO-OSMOLALITY AND HYPONATREMIA 10/24/2017 MARIANA RIOS MD Ot F03.90 UNSPECIFIED DEMENTIA WITHOUT BEHAVIORAL 10/24/2017 MARIANA RIOS MD Ot F32.9 MAJOR DEPRESSIVE DISORDER, SINGLE EPISOD 10/24/2017 MARIANA RIOS MD Ot I10 ESSENTIAL (PRIMARY) HYPERTENSION 10/24/2017 MARIANA RIOS MD Ot I25.10 ATHSCL HEART DISEASE OF [place] CORONARY 10/24/2017 MARIANA RIOS MD Ot K21.9 GASTRO-ESOPHAGEAL REFLUX DISEASE WITHOUT 10/24/2017 MARIANA RIOS MD Ot 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, STAGE 2 10/24/2017 MARIANA RIOS MD Ot R29.6 REPEATED FALLS 10/24/2017 MARIANA RIOS MD Ot R53.81 OTHER MALAISE 10/24/2017 MARIANA RIOS MD Ot Z85.828 PERSONAL HISTORY OF OTHER MALIGNANT NEOP 10/24/2017 MARIANA RIOS MD Ot Z87.891 PERSONAL HISTORY OF NICOTINE DEPENDENCE 10/24/2017 MARIANA RIOS MD Ot Z95.5 PRESENCE OF CORONARY ANGIOPLASTY IMPLANT 10/26/2017 MARIANA RIOS MD Ot B35.6 TINEA CRURIS 10/26/2017 MARIANA RIOS MD Ot E03.9 HYPOTHYROIDISM, UNSPECIFIED 10/26/2017 MARIANA RIOS MD Ot E78.00 PURE HYPERCHOLESTEROLEMIA, UNSPECIFIED 10/26/2017 MARIANA RIOS MD Ot E87.1 HYPO-OSMOLALITY AND HYPONATREMIA 10/26/2017 MARIANA RIOS MD Ot F03.90 UNSPECIFIED DEMENTIA WITHOUT BEHAVIORAL 10/26/2017 MARIANA RIOS MD Ot F32.9 MAJOR DEPRESSIVE DISORDER, SINGLE EPISOD 10/26/2017 MARIANA RIOS MD Ot I10 ESSENTIAL (PRIMARY) HYPERTENSION 10/26/2017 MARIANA RIOS MD Ot I25.10 ATHSCL HEART DISEASE OF [place] CORONARY 10/26/2017 MARIANA RIOS MD Ot K21.9 GASTRO-ESOPHAGEAL REFLUX DISEASE WITHOUT 10/26/2017 MARIANA RIOS MD Ot K59.00 CONSTIPATION, UNSPECIFIED 10/26/2017 MARIANA RIOS MD Ot 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, STAGE 2 10/26/2017 MARIANA RIOS MD Ot N39.0 URINARY TRACT INFECTION, SITE NOT SPECIF 10/26/2017 MARIANA RIOS MD Ot R29.6 REPEATED FALLS 10/26/2017 MARIANA RIOS MD Ot R53.81 OTHER MALAISE 10/26/2017 MARIANA RIOS MD Ot R74.8 ABNORMAL LEVELS OF OTHER SERUM ENZYMES 10/26/2017 MARIANA RIOS MD Ot Z85.818 PRSNL HX OF MALIG NEOPLM OF SITE OF LIP, 10/26/2017 MARIANA RIOS MD Ot Z85.828 PERSONAL HISTORY OF OTHER MALIGNANT NEOP 10/26/2017 MARIANA RIOS MD Ot Z87.891 PERSONAL HISTORY OF NICOTINE DEPENDENCE 10/26/2017 MARIANA RIOS MD Ot Z95.5 PRESENCE OF CORONARY ANGIOPLASTY IMPLANT 10/28/2017 FAITH TABARES MD 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 10/28/2017 FAITH TABARES MD Ot M27.2 INFLAMMATORY CONDITIONS OF JAWS 10/28/2017 FAITH TABARES MD, Ot S01.502A UNSPECIFIED OPEN WOUND OF ORAL CAVITY, I 10/28/2017 FAITH TABARES MD, Ot W88.0XXA EXPOSURE TO X-RAYS, INITIAL ENCOUNTER 11/03/2017 FAITH TABARES MD, Ot M27.2 INFLAMMATORY CONDITIONS OF JAWS 11/04/2017 FAITH TABARES MD, Ot M27.2 INFLAMMATORY CONDITIONS OF JAWS 11/04/2017 Amor, Frankie W 142.0 MALIGNANT NEOPLASM OF [place] 11/04/2017 Amor, Frankie W 244.9 UNSPECIFIED HYPOTHYROIDISM 11/04/2017 Amor, Frankie W 272.0 PURE HYPERCHOLESTEROLEMIA 11/04/2017 Amor, Frankie W 290.41 11/04/2017 Amor, Frankie W 294.11 11/04/2017 Amor, Frankie A 331.0 11/04/2017 Amor, Frankie W 401.0 11/04/2017 Amor, Frankie W 530.81 ESOPHAGEAL REFLUX 11/04/2017 Amor, Frankie W 585.9 11/04/2017 Amor, Frankie W 599.0 11/04/2017 Amor, Frankie W 707.05 11/04/2017 Amor, Frankie W 783.21 11/04/2017 Amor, Frankie W C07 MALIGNANT NEOPLASM OF [place] 11/04/2017 Amor, Frankie W E03.9 HYPOTHYROIDISM, UNSPECIFIED 11/04/2017 Amor, Frankie W E78.00 PURE HYPERCHOLESTEROLEMIA, UNSPECIFIED 11/04/2017 Amor, Frankie W F01.51 VASCULAR DEMENTIA WITH BEHAVIORAL DISTURBANCE 11/04/2017 Amor, Frankie W F02.81 11/04/2017 Amor, Frankie A G30.9 11/04/2017 Amor, Frankie W I10 ESSENTIAL (PRIMARY) HYPERTENSION 11/04/2017 Amor, Frankie W K21.9 GASTRO-ESOPHAGEAL REFLUX DISEASE WITHOUT ESOPHAGITIS 11/04/2017 AmorFrankie bennett W L89.322 PRESSURE ULCER OF LEFT BUTTOCK, STAGE 2 11/04/2017 AmorFrankie lopes W N18.9 CHRONIC KIDNEY DISEASE, UNSPECIFIED 11/04/2017 Amor, Frankie W N39.0 URINARY TRACT INFECTION, SITE NOT SPECIFIED 11/04/2017 Amor, Frankie W R63.4 ABNORMAL WEIGHT LOSS 11/18/2017 FAITH TABARES MD 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 11/18/2017 FAITH TABARES MD Ot M27.2 INFLAMMATORY CONDITIONS OF JAWS 11/18/2017 FAITH TABARES MD Ot S01.502A UNSPECIFIED OPEN WOUND OF ORAL CAVITY, I 11/18/2017 FAITH TABARES MD, Ot W88.0XXA EXPOSURE TO X-RAYS, INITIAL ENCOUNTER 11/18/2017 FAITH TABARES MD 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 11/18/2017 FAITH TABARES MD, Ot M27.2 INFLAMMATORY CONDITIONS OF JAWS 11/18/2017 FAITH TABARES MD Ot S01.502A UNSPECIFIED OPEN WOUND OF ORAL CAVITY, I 11/18/2017 FAITH TABARES MD, Ot W88.0XXA EXPOSURE TO X-RAYS, INITIAL ENCOUNTER 07/17/2018 MANNY LEDEZMA, JOSÉ Bryson 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 07/18/2018 STARLA LEDEZMA, NASH Ot Z01.818 ENCOUNTER FOR OTHER PREPROCEDURAL EXAMIN Procedures There is no data. Results Test Result Range Capillary blood glucose measurement by glucometer (mass/volume) - 12/22/16 13: 37 Capillary blood glucose measurement by glucometer (mass/volume) 132 mg/dL 70-110 Complete blood count (CBC) with automated white blood cell (WBC) differential - 12/22/16 13:42 Blood leukocytes automated count (number/volume) 6.4 10*3/uL 4.3-11.0 Blood erythrocytes automated count (number/volume) 4.36 10*6/uL 4.35-5.85 Venous blood hemoglobin measurement (mass/volume) 14.0 [...] Automated blood platelet mean volume measurement 10.2 [foz_us] 7.4-10.4 Automated blood neutrophils/100 leukocytes 70 % [...] Serum or plasma sodium measurement (moles/volume) 138 mmol/L 135-145 Serum or plasma potassium measurement (moles/volume) 4.2 mmol/L 3.6-5.0 Serum or plasma chloride measurement (moles/volume) 108 mmol/L 98-107 Carbon dioxide 21 mmol/L 21-32 Serum or plasma anion gap determination (moles/volume) 9 mmol/L 5-14 Serum or plasma urea nitrogen measurement (mass/volume) 24 mg/dL 7-18 Serum or plasma creatinine measurement (mass/volume) 1.87 mg/dL 0.60-1.30 Serum or plasma urea nitrogen/creatinine mass [...] or plasma troponin i.cardiac measurement (mass/volume) < ng/ mL <0.30 Capillary blood glucose measurement by glucometer (mass/volume) - 12/22/16 14: 53 Capillary blood glucose measurement by glucometer (mass/volume) 203 mg/dL 70-110 Complete urinalysis with reflex to culture - 12/22/16 16:30 Urine color determination YELLOW NRG Urine clarity determination CLEAR NRG Urine pH measurement by test strip 5 5-9 Specific gravity of urine by test strip 1.020 1.016- 1.022 Urine protein assay by test strip, semi-quantitative [...] measurement by glucometer (mass/volume) 125 mg/dL 70-110 Complete blood count (CBC) with automated white blood cell (WBC) differential - 03/22/17 02:50 Blood leukocytes automated count (number/volume) 11.8 10*3/uL 4.3-11.0 Blood erythrocytes automated count (number/volume) 4.32 10*6/uL 4.35-5.85 Venous blood hemoglobin measurement (mass/volume) 14.0 g/dL 13.3-17.7 Blood hematocrit (volume fraction) 42 % 40-54 Automated erythrocyte mean corpuscular volume 97 [foz_us] 80-99 Automated erythrocyte mean corpuscular hemoglobin (mass per erythrocyte) 32 pg 25-34 Automated erythrocyte mean corpuscular hemoglobin concentration measurement ( mass/volume) 34 g/dL 32-36 Automated erythrocyte distribution width ratio 14.0 % 10.0-14.5 Automated blood platelet count (count/volume) 268 10*3/uL 130-400 Automated blood platelet mean volume measurement 9.9 [foz_us] 7.4-10.4 Automated blood neutrophils/100 leukocytes 76 % 42-75 Automated blood lymphocytes/100 leukocytes 18 % 12-44 Blood monocytes/100 leukocytes 5 % 0-12 Automated blood eosinophils/100 leukocytes 1 % 0-10 Automated blood basophils/100 leukocytes 0 % 0-10 Blood neutrophils automated count (number/volume) 9.0 10*3 1.8-7.8 Blood lymphocytes automated count (number/volume) 2.1 10*3 1.0-4.0 Blood monocytes automated count (number/volume) 0.6 10*3 0.0-1.0 Automated eosinophil count 0.1 10*3/uL 0.0-0.3 Automated blood basophil count (count/volume) 0.0 10*3/uL 0.0-0.1 PT panel in platelet poor plasma by coagulation assay - 03/22/17 02:50 Prothrombin time (PT) in platelet poor plasma by coagulation assay 13.4 s 12.2-14.7 INR in platelet poor plasma or blood by coagulation assay 1.1 0.8-1.4 Activated partial thromboplastin time (aPTT) in platelet poor plasma bycoagulation assay - 03/22/17 02:50 Activated partial thromboplastin time (aPTT) in platelet poor plasma bycoagulation assay 25 s 24-35 Comprehensive metabolic panel - 03/22/17 02:50 Serum or plasma sodium measurement (moles/volume) 138 mmol/L 135-145 Serum or plasma potassium measurement (moles/volume) 3.7 mmol/L 3.6-5.0 Serum or plasma chloride measurement (moles/volume) 103 mmol/L 98-107 Carbon dioxide 17 mmol/L 21-32 Serum or plasma anion gap determination (moles/volume) 18 mmol/L 5-14 Serum or plasma urea nitrogen measurement (mass/volume) 19 mg/dL 7-18 Serum or plasma creatinine measurement (mass/volume) 1.49 mg/dL 0.60-1.30 Serum or plasma urea nitrogen/creatinine mass ratio 13 0 -20 Serum or plasma creatinine measurement with calculation of estimated glomerular filtration rate 45 NRG Serum or plasma glucose measurement (mass/volume) 161 mg/dL 70-105 Serum or plasma calcium measurement (mass/volume) 9.5 mg/dL 8.5-10.1 Serum or plasma total bilirubin measurement (mass/volume) 1.8 mg/dL 0.1-1.0 Serum or plasma alkaline phosphatase measurement (enzymatic activity/volume) 1635 U/L 40-136 Serum or plasma aspartate aminotransferase measurement (enzymatic activity/ volume) 461 U/L 5-34 Serum or plasma alanine aminotransferase measurement (enzymatic activity/volume ) 243 U/L 0-55 Serum or plasma protein measurement (mass/volume) 6.8 g/dL 6.4-8.2 Serum or plasma albumin measurement (mass/volume) 3.4 g/dL 3.2-4.5 Magnesium - 03/22/17 02:50 Magnesium 1.5 mg/dL 1.8-2.4 Serum or plasma creatine kinase measurement (enzymatic activity/volume) - 03/22 02:50 Serum or plasma creatine kinase measurement (enzymatic activity/volume) 28 U/L 30-200 Serum or plasma creatine kinase MB measurement (enzymatic activity/volume) - 02:50 Serum or plasma creatine kinase MB measurement (enzymatic activity/volume) 1.0 ng/mL <6.6 Serum or plasma troponin i.cardiac measurement (mass/volume) - 03/22/17 02:50 Serum or plasma troponin i.cardiac measurement (mass/volume) < ng/ mL <0.30 Serum or plasma amylase measurement (enzymatic activity/volume) - 03/22/17 02: 50 Serum or plasma amylase measurement (enzymatic activity/volume) 60 U /L 25-125 Lipase - 03/22/17 02:50 Lipase 63 U/L 8-78 Serum or plasma lithium measurement (moles/volume) - 03/22/17 02:50 BNP level 103.2 pg/mL <100.0 Capillary blood glucose measurement by glucometer (mass/volume) - 05/16/17 08: 20 Capillary blood glucose measurement by glucometer (mass/volume) 114 mg/dL 70-110 Capillary blood glucose measurement by glucometer (mass/volume) - 05/16/17 08: 43 Capillary blood glucose measurement by glucometer (mass/volume) 133 mg/dL 70-110 Capillary blood glucose measurement by glucometer (mass/volume) - 05/16/17 11: 06 Capillary blood glucose measurement by glucometer (mass/volume) 115 mg/dL 70-110 Capillary blood glucose measurement by glucometer (mass/volume) - 05/17/17 08: 03 Capillary blood glucose measurement by glucometer (mass/volume) 106 mg/dL 70-110 Capillary blood glucose measurement by glucometer (mass/volume) - 05/17/17 08: 23 Capillary blood glucose measurement by glucometer (mass/volume) 105 mg/dL 70-110 Capillary blood glucose measurement by glucometer (mass/volume) - 05/17/17 08: 40 Capillary blood glucose measurement by glucometer (mass/volume) 106 mg/dL 70-110 Capillary blood glucose measurement by glucometer (mass/volume) - 05/17/17 08: 58 Capillary blood glucose measurement by glucometer (mass/volume) 106 mg/dL 70-110 Capillary blood glucose measurement by glucometer (mass/volume) - 05/18/17 07: 58 Capillary blood glucose measurement by glucometer (mass/volume) 111 mg/dL 70-110 Capillary blood glucose measurement by glucometer (mass/volume) - 06/08/17 10: 13 Capillary blood glucose measurement by glucometer (mass/volume) 103 mg/dL 70-110 Complete blood count (CBC) with automated white blood cell (WBC) differential - 08/05/17 06:30 Blood leukocytes automated count (number/volume) 10.9 10*3/uL 4.3-11.0 Blood erythrocytes automated count (number/volume) 4.31 10*6/uL 4.35-5.85 Venous blood hemoglobin measurement (mass/volume) 14.0 g/dL 13.3-17.7 Blood hematocrit (volume fraction) 41 % 40-54 Automated erythrocyte mean corpuscular volume 94 [foz_us] 80-99 Automated erythrocyte mean corpuscular hemoglobin (mass per erythrocyte) 33 pg 25-34 Automated erythrocyte mean corpuscular hemoglobin concentration measurement ( mass/volume) 35 g/dL 32-36 Automated erythrocyte distribution width ratio 12.8 % 10.0-14.5 Automated blood platelet count (count/volume) 263 10*3/uL 130-400 Automated blood platelet mean volume measurement 9.9 [foz_us] 7.4-10.4 Automated blood neutrophils/100 leukocytes 66 % 42-75 Automated blood lymphocytes/100 leukocytes 25 % 12-44 Blood monocytes/100 leukocytes 8 % 0-12 Automated blood eosinophils/100 leukocytes 1 % 0-10 Automated blood basophils/100 leukocytes 0 % 0-10 Blood neutrophils automated count (number/volume) 7.2 10*3 1.8-7.8 Blood lymphocytes automated count (number/volume) 2.7 10*3 1.0-4.0 Blood monocytes automated count (number/volume) 0.9 10*3 0.0-1.0 Automated eosinophil count 0.1 10*3/uL 0.0-0.3 Automated blood basophil count (count/volume) 0.0 10*3/uL 0.0-0.1 Whole blood basic metabolic panel - 08/05/17 06:30 Serum or plasma sodium measurement (moles/volume) 142 mmol/L 135-145 Serum or plasma potassium measurement (moles/volume) 3.5 mmol/L 3.6-5.0 Serum or plasma chloride measurement (moles/volume) 106 mmol/L 98-107 Carbon dioxide 19 mmol/L 21-32 Serum or plasma anion gap determination (moles/volume) 17 mmol/L 5-14 Serum or plasma urea nitrogen measurement (mass/volume) 24 mg/dL 7-18 Serum or plasma creatinine measurement (mass/volume) 1.27 mg/dL 0.60-1.30 Serum or plasma urea nitrogen/creatinine mass ratio 19 NRG Serum or plasma creatinine measurement with calculation of estimated glomerular filtration rate 54 NRG Serum or plasma glucose measurement (mass/volume) 120 mg/dL 70-105 Serum or plasma calcium measurement (mass/volume) 9.0 mg/dL 8.5-10.1 Complete blood count (CBC) with automated white blood cell (WBC) differential - 10/22/17 20:11 Blood leukocytes automated count (number/volume) 9.5 10*3/uL 4.3-11.0 Blood erythrocytes automated count (number/volume) 3.68 10*6/uL 4.35-5.85 Venous blood hemoglobin measurement (mass/volume) 11.9 g/dL 13.3-17.7 Blood hematocrit (volume fraction) 34 % 40-54 Automated erythrocyte mean corpuscular volume 94 [foz_us] 80-99 Automated erythrocyte mean corpuscular hemoglobin (mass per erythrocyte) 32 pg 25-34 Automated erythrocyte mean corpuscular hemoglobin concentration measurement ( mass/volume) 35 g/dL 32-36 Automated erythrocyte distribution width ratio 14.1 % 10.0-14.5 Automated blood platelet count (count/volume) 249 10*3/uL 130-400 Automated blood platelet mean volume measurement 10.5 [foz_us] 7.4-10.4 Automated blood neutrophils/100 leukocytes 70 % 42-75 Automated blood lymphocytes/100 leukocytes 20 % 12-44 Blood monocytes/100 leukocytes 8 % 0-12 Automated blood eosinophils/100 leukocytes 2 % 0-10 Automated blood basophils/100 leukocytes 0 % 0-10 Blood neutrophils automated count (number/volume) 6.7 10*3 1.8-7.8 Blood lymphocytes automated count (number/volume) 1.9 10*3 1.0-4.0 Blood monocytes automated count (number/volume) 0.7 10*3 0.0-1.0 Automated eosinophil count 0.1 10*3/uL 0.0-0.3 Automated blood basophil count (count/volume) 0.0 10*3/uL 0.0-0.1 Comprehensive metabolic panel - 10/22/17 20:11 Serum or plasma sodium measurement (moles/volume) 132 mmol/L 135-145 Serum or plasma potassium measurement (moles/volume) 4.3 mmol/L 3.6-5.0 Serum or plasma chloride measurement (moles/volume) 100 mmol/L 98-107 Carbon dioxide 21 mmol/L 21-32 Serum or plasma anion gap determination (moles/volume) 11 mmol/L 5-14 Serum or plasma urea nitrogen measurement (mass/volume) 43 mg/dL 7-18 Serum or plasma creatinine measurement (mass/volume) 1.67 mg/dL 0.60-1.30 Serum or plasma urea nitrogen/creatinine mass ratio 26 NRG Serum or plasma creatinine measurement with calculation of estimated glomerular filtration rate 39 NRG Serum or plasma glucose measurement (mass/volume) 134 mg/dL 70-105 Serum or plasma calcium measurement (mass/volume) 8.9 mg/dL 8.5-10.1 Serum or plasma total bilirubin measurement (mass/volume) 1.3 mg/dL 0.1-1.0 Serum or plasma alkaline phosphatase measurement (enzymatic activity/volume) 345 U/L 40-136 Serum or plasma aspartate aminotransferase measurement (enzymatic activity/ volume) 43 U/L 5-34 Serum or plasma alanine aminotransferase measurement (enzymatic activity/volume ) 38 U/L 0-55 Serum or plasma protein measurement (mass/volume) 6.5 g/dL 6.4-8.2 Serum or plasma albumin measurement (mass/volume) 2.8 g/dL 3.2-4.5 Magnesium - 10/22/17 20:11 Magnesium 1.6 mg/dL 1.8-2.4 Serum or plasma C reactive protein measurement (mass/volume) - 10/22/17 20:11 Serum or plasma C reactive protein measurement (mass/volume) 9.41 mg /dL 0.00-0.50 Complete urinalysis with reflex to culture - 10/22/17 21:09 Urine color determination YELLOW NRG Urine clarity determination CLEAR NRG Urine pH measurement by test strip 5 5-9 Specific gravity of urine by test strip 1.010 1.016- 1.022 Urine protein assay by test strip, semi-quantitative NEGATIVE NEGATIVE Urine glucose detection by automated test strip NEGATIVE NEGATIVE Erythrocytes detection in urine sediment by light microscopy NEGATIVE NEGATIVE Urine ketones detection by automated test strip NEGATIVE NEGATIVE Urine nitrite detection by test strip POSITIVE NEGATIVE Urine total bilirubin detection by test strip NEGATIVE NEGATIVE Urine urobilinogen measurement by automated test strip (mass/volume) NORMAL NORMAL Urine leukocyte esterase detection by dipstick 2+ NEGATIVE Automated urine sediment erythrocyte count by microscopy (number/high power field) NONE NRG Automated urine sediment leukocyte count by microscopy (number/high power field ) [HPF] NRG Bacteria detection in urine sediment by light microscopy MODERATE NRG Crystals detection in urine sediment by light microscopy NONE NRG Casts detection in urine sediment by light microscopy NONE NRG Mucus detection in urine sediment by light microscopy NEGATIVE NRG Complete urinalysis with reflex to culture YES NRG Bacterial urine culture - 10/22/17 21:09 Bacterial urine culture [id number] NRG COLONY COUNT >100,000/ML NRG FTX;REPORTABLE SENSITIVITY REPORTED AT 0731, 10-24-17 NRG URINE CULTURE RESULTS PLUS NRG Bacterial susceptibility panel - 10/22/17 21:09 Gentamicin susceptibility test by minimum inhibitory concentration < = NRG Trimethoprim/sulfamethoxazole susceptibility test by minimum inhibitoryconcentration S NRG Ampicillin susceptibility test by minimum inhibitory concentration > = NRG Tobramycin susceptibility test by minimum inhibitory concentration < = NRG Cefazolin susceptibility test by minimum inhibitory concentration 8 NRG Ceftriaxone susceptibility test by minimum inhibitory concentration <= NRG Ampicillin/sulbactam susceptibility test by minimum inhibitory concentration I NRG Piperacillin/tazobactam susceptibility test by minimum inhibitory concentration S NRG Ciprofloxacin susceptibility test by minimum inhibitory concentration <= NRG Meropenem susceptibility test by minimum inhibitory concentration < = NRG Nitrofurantoin susceptibility test by minimum inhibitory concentration <= NRG Aztreonam susceptibility test by minimum inhibitory concentration < = NRG Extended spectrum beta lactamase (ESBL) producing bacteria susceptibility test by minimum inhibitory concentration - NRG Complete blood count (CBC) with automated white blood cell (WBC) differential - 10/23/17 05:42 Blood leukocytes automated count (number/volume) 8.1 10*3/uL 4.3-11.0 Blood erythrocytes automated count (number/volume) 3.63 10*6/uL 4.35-5.85 Venous blood hemoglobin measurement (mass/volume) 11.6 g/dL 13.3-17.7 Blood hematocrit (volume fraction) 34 % 40-54 Automated erythrocyte mean corpuscular volume 94 [foz_us] 80-99 Automated erythrocyte mean corpuscular hemoglobin (mass per erythrocyte) 32 pg 25-34 Automated erythrocyte mean corpuscular hemoglobin concentration measurement ( mass/volume) 34 g/dL 32-36 Automated erythrocyte distribution width ratio 14.0 % 10.0-14.5 Automated blood platelet count (count/volume) 213 10*3/uL 130-400 Automated blood platelet mean volume measurement 10.7 [foz_us] 7.4-10.4 Automated blood neutrophils/100 leukocytes 74 % 42-75 Automated blood lymphocytes/100 leukocytes 16 % 12-44 Blood monocytes/100 leukocytes 9 % 0-12 Automated blood eosinophils/100 leukocytes 2 % 0-10 Automated blood basophils/100 leukocytes 0 % 0-10 Blood neutrophils automated count (number/volume) 5.9 10*3 1.8-7.8 Blood lymphocytes automated count (number/volume) 1.3 10*3 1.0-4.0 Blood monocytes automated count (number/volume) 0.7 10*3 0.0-1.0 Automated eosinophil count 0.1 10*3/uL 0.0-0.3 Automated blood basophil count (count/volume) 0.0 10*3/uL 0.0-0.1 Comprehensive metabolic panel - 10/23/17 05:42 Serum or plasma sodium measurement (moles/volume) 136 mmol/L 135-145 Serum or plasma potassium measurement (moles/volume) 4.0 mmol/L 3.6-5.0 Serum or plasma chloride measurement (moles/volume) 106 mmol/L 98-107 Carbon dioxide 20 mmol/L 21-32 Serum or plasma anion gap determination (moles/volume) 10 mmol/L 5-14 Serum or plasma urea nitrogen measurement (mass/volume) 40 mg/dL 7-18 Serum or plasma creatinine measurement (mass/volume) 1.54 mg/dL 0.60-1.30 Serum or plasma urea nitrogen/creatinine mass ratio 26 NRG Serum or plasma creatinine measurement with calculation of estimated glomerular filtration rate 43 NRG Serum or plasma glucose measurement (mass/volume) 97 mg/dL 70-105 Serum or plasma calcium measurement (mass/volume) 8.5 mg/dL 8.5-10.1 Serum or plasma total bilirubin measurement (mass/volume) 1.1 mg/dL 0.1-1.0 Serum or plasma alkaline phosphatase measurement (enzymatic activity/volume) 291 U/L 40-136 Serum or plasma aspartate aminotransferase measurement (enzymatic activity/ volume) 34 U/L 5-34 Serum or plasma alanine aminotransferase measurement (enzymatic activity/volume ) 32 U/L 0-55 Serum or plasma protein measurement (mass/volume) 5.8 g/dL 6.4-8.2 Serum or plasma albumin measurement (mass/volume) 2.5 g/dL 3.2-4.5 Automated blood complete blood count (hemogram) panel - 10/24/17 10:40 Blood leukocytes automated count (number/volume) 7.5 10*3/uL 4.3-11.0 Blood erythrocytes automated count (number/volume) 3.62 10*6/uL 4.35-5.85 Venous blood hemoglobin measurement (mass/volume) 11.5 g/dL 13.3-17.7 Blood hematocrit (volume fraction) 35 % 40-54 Automated erythrocyte mean corpuscular volume 95 [foz_us] 80-99 Automated erythrocyte mean corpuscular hemoglobin (mass per erythrocyte) 32 pg 25-34 Automated erythrocyte mean corpuscular hemoglobin concentration measurement ( mass/volume) 33 g/dL 32-36 Automated erythrocyte distribution width ratio 14.0 % 10.0-14.5 Automated blood platelet count (count/volume) 278 10*3/uL 130-400 Automated blood platelet mean volume measurement 10.5 [foz_us] 7.4-10.4 Comprehensive metabolic panel - 10/24/17 10:40 Serum or plasma sodium measurement (moles/volume) 137 mmol/L 135-145 Serum or plasma potassium measurement (moles/volume) 4.0 mmol/L 3.6-5.0 Serum or plasma chloride measurement (moles/volume) 107 mmol/L 98-107 Carbon dioxide 22 mmol/L 21-32 Serum or plasma anion gap determination (moles/volume) 8 mmol/L 5-14 Serum or plasma urea nitrogen measurement (mass/volume) 30 mg/dL 7-18 Serum or plasma creatinine measurement (mass/volume) 1.46 mg/dL 0.60-1.30 Serum or plasma urea nitrogen/creatinine mass ratio 21 NRG Serum or plasma creatinine measurement with calculation of estimated glomerular filtration rate 46 NRG Serum or plasma glucose measurement (mass/volume) 125 mg/dL 70-105 Serum or plasma calcium measurement (mass/volume) 8.3 mg/dL 8.5-10.1 Serum or plasma total bilirubin measurement (mass/volume) 1.2 mg/dL 0.1-1.0 Serum or plasma alkaline phosphatase measurement (enzymatic activity/volume) 270 U/L 40-136 Serum or plasma aspartate aminotransferase measurement (enzymatic activity/ volume) 30 U/L 5-34 Serum or plasma alanine aminotransferase measurement (enzymatic activity/volume ) 30 U/L 0-55 Serum or plasma protein measurement (mass/volume) 5.9 g/dL 6.4-8.2 Serum or plasma albumin measurement (mass/volume) 2.5 g/dL 3.2-4.5 C DIFFICILE AG + TOXIN A/B. - 10/24/17 21:00 RESULTS NEGATIVE FOR ANTIGEN AND TOXIN A/B NRG Vitamin D, 25 OH - 10/27/17 05:00 Vitamin D, 25 OH 30.20 ng/mL 25.00-100.00 Urinalysis - 10/28/17 09:00 Icotest N/A Negative Urine Crystals amorphous urates Urine Volume Urine Volume Sufficient (10mL) Urine-Appearance Hazy Clear Urine-Bacteria 1+ Urine-Bilirubin Negative Negative Urine-Blood Negative Negative Urine-Color Yellow Colorless-Lt. Yellow Urine-Epithelial Cells 0-5/HPF Urine-Glucose Negative Negative Urine-Ketones Negative Negative Urine-Leukocytes Negative Negative Urine-Nitrite Negative Negative Urine-Other Culture to follow Urine-pH 5.5 5-8.5 Urine-Protein Trace Negative Urine-RBC Rare/HPF Urine-Specific [place] 1.015 1.000-1.030 Urine-WBC 2-5/HPF Urobilinogen 1.0 E.U./dL 0.2-1.0 Urine Culture - 10/28/17 09:00 PRELIM CULTURE RESULTS No Growth 24 hours FINAL CULTURE RESULTS No Growth 48 hours MEDIA PLATED Setup at 13:31 on 10/28/2017 CULTURE SOURCE cath Comprehensive Metabolic Panel - 10/28/17 14:23 Albumin 2.5 g/dL 3.6-5.1 ALP 349 U/L 35-130 ALT 32 U/L 6-45 Anion Gap 15 6-14 AST 34 U/L 2-40 BUN 29 mg/dL 5-25 Calcium 8.1 mg/dL 8.3-10.4 Chloride 103 mmol/L 95-114 CO2 22 mEq/L 22-33 Creat 1.34 mg/dL 0.50-1.50 eGFR 51 mL/min/1.73m2 >59 Globulin 2.7 g/dL 2.3-3.5 Glucose 125 mg/dL 70-110 Osmo 286 280-295 Potassium 4.8 mmol/L 3.5-5.3 Sodium 135 mmol/L 134-148 TBil 0.8 mg/dL 0.2-1.2 TP 5.2 g/dL 6.0-8.3 Encounters ACCT No. Visit Date/Time Discharge Status Pt. Type Provider Facility Loc./Unit Complaint [id number] 07/17/2018 05:47:00 07/17/2018 14:11:00 DIS Outpatient NASH CHA MD [facility] PREOP COLONOSCOPY [id number] 10/22/2017 23:05:00 10/26/2017 16:20:00 DIS Inpatient GABRIEL LEDEZMA, MARIANA Peters [facility] 4TH UTI,SACRAL DECUBS, PROTEIN DEFICIENCY,MALNUTRITION [id number] 08/04/2017 16:27:00 08/05/2017 11:56:00 DIS Inpatient UCHE RUDEA MD [facility] 4TH IMPACTION [id number] 07/19/2017 08:00:00 07/19/2017 12:00:00 DIS Outpatient FAITH TABARES MD [facility] [id number] 07/18/2017 08:00:00 07/18/2017 23:59:59 CLS Outpatient FAITH TABARES MD [facility] [id number] 07/13/2017 07:55:00 07/13/2017 23:59:59 CLS Outpatient FAITH TABARES MD [facility] [id number] 07/04/2017 07:58:00 07/04/2017 23:59:59 CLS Outpatient FAITH TABARES MD [facility] [id number] 06/29/2017 07:57:00 06/29/2017 23:59:59 CLS Outpatient FAITH TABARES MD [facility] [id number] 06/24/2017 07:53:00 06/25/2017 00:01:00 DIS Outpatient FAITH TABARES MD [facility] [id number] 06/24/2017 07:52:00 06/24/2017 23:59:59 CLS Outpatient FAITH TABARES MD [facility] [id number] 06/15/2017 07:51:00 06/15/2017 23:59:59 CLS Outpatient FAITH TABARES MD [facility] [id number] 06/08/2017 10:20:00 06/08/2017 23:59:59 CLS Outpatient FAITH TABARES MD [facility] [id number] 06/07/2017 00:26:00 06/07/2017 23:59:59 CLS Preadmit JOSÉ BRYANT MD [facility] ONC [id number] 03/08/2017 13:06:00 06/06/2017 00:01:00 DIS Outpatient JOSÉ BRYANT MD [facility] ONC [id number] 06/03/2017 10:17:00 06/03/2017 23:59:59 CLS Outpatient FAITH TABARES MD [facility] WOUNDCARE [id number] 05/27/2017 10:13:00 05/27/2017 23:59:59 CLS Outpatient FAITH TABARES MD [facility] WOUNDCARE [id number] 05/20/2017 10:40:00 05/20/2017 23:59:59 CLS Outpatient FAITH TABARES MD [facility] WOUNDCARE [id number] 05/09/2017 12:26:00 05/09/2017 23:59:59 CLS Outpatient FAITH TABARES MD [facility] WOUNDCARE [id number] 03/22/2017 02:42:00 03/22/2017 06:57:00 DIS Emergency DAY GAYLE DO [facility] ER HEART BURN [id number] 03/16/2017 13:28:00 03/16/2017 23:59:59 CLS Outpatient JOSÉ BRYANT MD [facility] RAD PAROTID CANCER [id number] 02/16/2017 13:37:00 02/16/2017 16:00:00 DIS Outpatient FAITH TABARES MD [facility] WOUNDCARE [id number] 12/22/2016 13:36:00 12/22/2016 17:46:00 DIS Emergency ARCHIE GONZALES MD [facility] ER LOW BLOOD SUGAR [id number] 12/07/2016 15:12:00 12/07/2016 23:59:59 CLS Outpatient MANNY LEDEZMA, JOSÉ Bryson [facility] ONC [id number] 10/26/2016 12:21:00 11/22/2016 00:01:00 DIS Outpatient MANNY LEDEZMA, JOSÉ Bryson [facility] ONC [id number] 04/11/2016 04:05:00 04/11/2016 09:34:00 DIS Emergency CHAIM LEDEZMA, MARIANA Matthews [facility] ER CHEST PAIN, SOA [id number] 04/16/2014 12:00:00 04/17/2014 17:23:00 DIS Inpatient MARIA DEL ROSARIO LEDEZMA, LOUIS Peters [facility] ICU CHEST PAIN ABD PAIN [id number] 07/21/2018 12:45:00 PEN Preadmit STARLA LEDEZMA, NASH [facility] ENDO SCREENING [id number] 11/29/2011 07:58:00 Document Registration [id number] 10/26/2017 15:37:00 11/04/2017 10:35:00 DIS Inpatient Nela Chinchillahaib [facility] NEFTALI [id number] 10/26/2017 16:39:07 Document Registration
[2018-07-21] MEDS ORDERED: NS IV 500 ML 500 ML ONE (10:04)
[2018-07-21] MEDS ORDERED: NS IV 500 ML 500 ML IV PRN (10:20)
[2018-07-21 10:23] VITALS: BP 141/90
[2018-07-21] MEDS ORDERED: MIDAZOLAM 2 MG/2 ML (VERSED) VIAL IVP ONE (10:30)
[2018-07-21] MEDS ORDERED: LIDOCAINE JELLY 2% 6 ML SYRINGE MM PRN (10:30)
[2018-07-21] MEDS ORDERED: fentaNYL INJECTION 100 MCG/2 ML AMP IVP ONE (10:30)
--- NOTE | 2018-07-21 10:41 | Conscious Sedation/ASA ---
Conscious Sedation Pre-Proced Time 10:00 ASA Score 2 For ASA 3 and 4: Consider anesthesia and medical clearance. Also, for patients with a history of failed moderate sedation consider anesthesia. Airway Lungs Heart ASA score ASA 1: a normal healthy patient ASA 2: a patient with a mild systemic disease (mid diabetes, controlled hypertension, obesity ASA 3: a patient with a severe systemic disease that limits activity (angina , COPD, prior Myocardial infarction) ASA 4: a patient with an incapacitating disease that is a constant threat to life (CHF, renal failure) ASA 5: a moribund patient not expected to survive 24 hrs. (ruptured aneurysm) ASA 6: a declared brain patient whose organs are being harvested. For emergent operations, add the letter E after the classification Mallampati Classification Grade 2 Sedation Plan Analgesia, Amnesia, Plan communicated to team members, Discussed options with patient/fam, Discussed risks with patient/fam The patient is an appropriate candidate to undergo the planned procedure, sedation, and anesthesia. The patient immediately re-assessed prior to indication. NASH CHA MD Jul 21, 2018 10:41 am
--- NOTE | 2018-07-21 10:42 | Progress Note-Pre Operative ---
Pre-Operative Progress Note H&P Reviewed The H&P was reviewed, patient examined and no changes noted. Date Seen by Provider: Jul 21, 2018 Time Seen by Provider: 10:00 Date H&P Reviewed: Jul 21, 2018 Time H&P Reviewed: 10:00 Pre-Operative Diagnosis: screening colonoscopy NAHS CHA MD Jul 21, 2018 10:42 am
[2018-07-21] MEDS ORDERED: HYDROcodone/APAP 5 MG/325 MG (LORTAB) TAB PO PRN ×2 (10:45)
[2018-07-21] MEDS ORDERED: ONDANSETRON 4 MG/2 ML (SDV) Z0FRAN IV PRN ×2 (10:45)
[2018-07-21] MEDS ORDERED: ACETAMINOPHEN 325 MG TABLET PO PRN ×2 (10:45)
[2018-07-21] MEDS ORDERED: morphine INJ 10 MG/ML 1ML (SYR OR VIAL) IV PRN ×2 (10:45)
[2018-07-21] MEDS ORDERED: LIDOCAINE JELLY 2% 6 ML SYRINGE ONE (10:50)
[2018-07-21] MEDS ORDERED: MIDAZOLAM 2 MG/2 ML (VERSED) VIAL ONE ×4 (10:50)
[2018-07-21] MEDS ORDERED: fentaNYL INJECTION 100 MCG/2 ML AMP ONE (10:50)
--- NOTE | 2018-07-21 11:36 | Progress Note-Post Operative ---
Post-Operative Progess Note Surgeon (s)/Dry Sander (s) Surgeon NASH CHA MD Dry Sander: none Pre-Operative Diagnosis screening colonoscopy Post-Operative Diagnosis normal colon and rectum. Procedure & Operative Findings Date of Procedure 07/21/18 Procedure Performed/Findings Colonoscopy. Anesthesia Type CS Estimated Blood Loss Estimated blood loss (mL): none Specimens/Packing Specimens Removed none NASH CHA MD Jul 21, 2018 11:36 am
--- NOTE | 2018-07-21 11:38 | Discharge Inst-Surgical ---
D/C Lap Instructions-STARLA Follow Up 10 years or PRN Activity as tolerated High Fiber Diet 25g or more per day Avoid Alcohol, Caffeine, Spicy [place] and Acid foods. Drink 64 fluid oz or more of fluids per day. Symptoms to Report: Fever over 101 degree F, Nausea/Vomiting If any problems/questions: Contact your physician or go to Emergency Room NASH CHA MD Jul 21, 2018 11:37 am
[2018-07-21 11:45] VITALS: BP 120/70
[2018-07-21 12:15] VITALS: BP 135/80
[2018-07-21 12:55] VITALS: BP 135/80
--- NOTE | 2018-07-21 15:42 | OPERATIVE REPORT ---
DATE OF SERVICE: 07/21/2018 ATTENDING PRIMARY CARE PHYSICIAN: [facility] in [place], [place]. PREOPERATIVE DIAGNOSIS: Screening colonoscopy. POSTOPERATIVE DIAGNOSIS: Normal colon and rectum. PROCEDURE: Colonoscopy. SURGEON: Nash Cha MD ANESTHESIA: Conscious sedation. ESTIMATED BLOOD LOSS: Minimal. FINDINGS: No significant hemorrhoids identified. Prostate gland was palpable and appeared normal. The remainder of the rectum and colon were normal. There were no lesions identified. DISPOSITION: The patient tolerated the procedure well. INDICATIONS: The patient is an 83-year-old male referred over to us for screening colonoscopy. His last colonoscopy was 10 years ago. At that time, he states that he believes that this was normal. He states that he does struggle with constipation at times and does take laxatives on an intermittent basis. He does not report any red blood per rectum nor any dark tarry stools. He also does not report any family history of colon cancer. DESCRIPTION OF PROCEDURE: The patient was brought to the endoscopy suite, laid in the left lateral decubitus position. After adequate IV pain and sedating medications and conscious sedation anesthesia, a digital rectal examination was performed. No significant hemorrhoids were identified. Normal sphincter tone was felt and there were no palpable masses. The prostate gland was palpable and appeared normal. The endoscope was then intubated into the anus and rectum gently insufflated. The endoscope was then advanced through the valves of [place] of the rectum with no polyps or any neoplasms identified. We then proceeded through the sigmoid colon where there were no diverticulosis identified. We then proceeded through the remainder of the descending, transverse and ascending colon to the cecum. These segments were normal. There were no polyps or any neoplasms identified. The endoscope was then slowly withdrawn while taking a second look and suctioning of residual air with no additional findings. The patient tolerated the procedure well. We will have him continue with medical management with a high fiber diet with at least 30 grams of fiber per day as well as significant amounts of water to promote soft stools on a daily basis and to decrease dependence on laxative, which should be more on a p.r.n. basis due to its colonic tolerance effects. He does not need another colonoscopy for another 10 years; however, sooner if he becomes symptomatic. Job ID: [id number] DocumentID: [id number] Dictated Date: 07/21/2018 11:37:14 Mortuary Technician Date: 07/21/2018 15:41:42 Dictated By: NASH CHA MD
== END 2018-07-21 12:55 | disposition home or self-care (01) ==
LOC: ENDO 09:25
PROVIDERS: ATTEND Surgery
DX: Z12.11 Encounter for screening for malignant neoplasm of colon (principal); K59.00 Constipation, unspecified; E03.9 Hypothyroidism, unspecified; M10.9 Gout, unspecified; Z79.899 Other long term (current) drug therapy

== ENCOUNTER 2019-01-18 12:28 | Emergency (ER) | payer MEDICARE, OTHER ==
[~2019-01-18] VITALS: Ht 171.4 cm; Wt 72.6 kg
[2019-01-18 12:58] LABS: CLARITY,URINE CLEAR; COLOR,URINE AMBER; GLUCOSE, URINE (UA) NEGATIVE (NEGATIVE); KETONES,URINE NEGATIVE (NEGATIVE); LEUKOCYTE ESTERASE ,URINE 1+ (NEGATIVE); NITRITE,URINE NEGATIVE (NEGATIVE); PH,URINE 6 (5-9); PROTEIN,URINE 2+ (NEGATIVE); UROBILINOGEN,URINE 4 MG/DL (NORMAL)
--- NOTE | 2019-01-18 13:05 | ED GU-Female ---
General Chief Complaint: - Urinary Stated Complaint: DARK URINE, LOWER BACK PAIN Nursing Triage Note: PT CO OF DARK URINE AND LOW BACK PAIN FOR APPROX 1 WEEK Nursing Sepsis Screen: No Definite Risk Source: patient Exam Limitations: no limitations History of Present Illness Date Seen by Provider: Jan 18, 2019 Time Seen by Provider: 12:30 Initial Comments This 83-year-old gentleman presents to the emergency room with complaints of intermittent aching across the lower back and dark urine 1 week. He denies any fever. He has no nausea vomiting or diarrhea. His urine has a strong odor as well. He has history of kidney stones previously. His primary care provider is the [facility] out of the [place], [place]. Allergies and Home Medications Allergies Coded Allergies: No Known Drug Allergies (Unverified , 07/17/18) Home Medications Allopurinol 300 Mg Tablet, 300 MG PO DAILY, (Reported) Levothyroxine Sodium 50 Mcg Tablet, 50 MCG PO DAILY, (Reported) Polyethylene Glycol 3350 119 Gm Powder, 17 GM PO DAILY PRN for CONSTIPATION-1ST LINE Fill cap to line. Mix with 8-12 ounces water or juice. Prescribed by: JESSICA MATA on 01/18/19 1528 Patient Home Medication List Home Medication List Reviewed: Yes Review of Systems Review of Systems Constitutional: no symptoms reported EENTM: no symptoms reported Respiratory: no symptoms reported Cardiovascular: no symptoms reported Gastrointestinal: no symptoms reported Genitourinary: see HPI Musculoskeletal: see HPI Skin: no symptoms reported Psychiatric/Neurological: No Symptoms Reported Endocrine: No Symptoms Reported Past Ayuanic-Rinpba-Felzfy Hx Past Med/Social Hx: Reviewed and Corrections made Patient Social History Alcohol Use: Denies Use Recreational Drug Use: No Smoking Status: Former Smoker Type Used: Cigarettes Former Smoker, Quit: Aug 04, 1991 Recent Foreign Travel: No Contact w/Someone Who Travel: No Recent Infectious Disease Expo: No Recent Hopitalizations: No Immunizations Up To Date Tetanus Booster (TDap): Unknown PED Vaccines UTD: No Date of Influenza Vaccine: Jun 26, 2018 Seasonal Allergies Seasonal Allergies: No Past Medical History Surgeries: Yes (aortic aneurysm repair in [place], biliary stent) Abdominal, Coronary Stent, Gallbladder, Renal (kidney stone removal) Respiratory: No Currently Using CPAP: No Currently Using BIPAP: No Cardiac: Yes Coronary Artery Disease, High Cholesterol, Hypertension Neurological: Yes (pt stated had a stroke 15 years ago but has not been diagnosed) Reproductive Disorders: No Sexually Transmitted Disease: No HIV/AIDS: No Genitourinary: Yes Prostate Problems, Kidney Stones Gastrointestinal: Yes (HX OF GALLSTONES, ERCP) Gastroesophageal Reflux, Ulcer, Gall Bladder Disease (status post cholecystectomy, biliary stent) Musculoskeletal: No Arthritis, Chronic Back Pain, Gout Endocrine: Yes Diabetes, Insulin dep, Hypothyroidsim HEENT: Yes Cataract, Glaucoma Loss of Vision: Bilateral Hearing Impairment: Denies 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 Physical Exam Vital Signs Vital Signs - First Documented 01/18/19 12:41 Temp 97.9 Pulse 91 Resp 18 B/P (MAP) 140/80 (100) Pulse Ox 96 O2 Delivery Room Air Capillary Refill : Less Than 3 Seconds Height, Weight, BMI Height: 5'7.50" Weight: 160lbs. 4.0oz. 72.358894ck; 22.1 BMI Method:Stated General Appearance: WD/WN, no apparent distress HEENT: PERRL/EOMI, normal ENT inspection, pharynx normal Neck: normal inspection Cardiovascular: regular rate, rhythm, no edema, no murmur Respiratory: lungs clear, normal breath sounds, no respiratory distress, no accessory muscle use Gastrointestinal: normal bowel sounds, non tender, soft Back: no CVA tenderness Extremities: normal inspection, no pedal edema Neurologic/Psychiatric: tobacco wrapping machine tender II-XII nml as tested, no motor/sensory deficits, alert, normal mood/affect, oriented x 3 Skin: normal color, warm/dry Progress/Results/Core Measures Suspected Sepsis Recent Fever Within 48 Hours: No Infection Criteria Present: None New/Unexplained Altered Menta: No Sepsis Screen: No Definite Risk SIRS Temperature:97.9 Pulse: 91 Respiratory Rate: 18 Laboratory Tests 01/18/19 13:05: White Blood Count 6.2 Blood Pressure 140 /80 Mean: 100 Laboratory Tests 01/18/19 13:05: Creatinine 1.42H, Platelet Count 187, Total Bilirubin 3.3H Results/Orders Lab Results Laboratory Tests Test 01/18/19 12:50 01/18/19 13:05 Range/Units Urine Color SUSSY H Urine Clarity CLEAR Urine pH 6 5-9 Urine Specific [place] 1.015 L 1.016-1.022 Urine Protein 2+ H NEGATIVE Urine Glucose (UA) NEGATIVE NEGATIVE Urine Ketones NEGATIVE NEGATIVE Urine Nitrite NEGATIVE NEGATIVE Urine Bilirubin 2+ H NEGATIVE Urine Urobilinogen 4 H NORMAL MG/DL Urine Leukocyte Esterase 1+ H NEGATIVE Urine RBC (Auto) 1+ H NEGATIVE Urine RBC 0-2 /HPF Urine WBC 2-5 /HPF Urine Squamous Epithelial Cells 5-10 /HPF Urine Crystals NONE /LPF Urine Bacteria TRACE /HPF Urine Casts NONE /LPF Urine Mucus NEGATIVE /LPF Urine Culture Indicated NO White Blood Count 6.2 4.3-11.0 10^3/uL Red Blood Count 3.99 L 4.35-5.85 10^6/uL Hemoglobin 12.9 L 13.3-17.7 G/DL Hematocrit 38 L 40-54 % Mean Corpuscular Volume 96 80-99 FL Mean Corpuscular Hemoglobin 32 25-34 PG Mean Corpuscular Hemoglobin Concent 34 32-36 G/DL Red Cell Distribution Width 13.4 10.0-14.5 % Platelet Count 187 130-400 10^3/uL Mean Platelet Volume 10.4 7.4-10.4 FL Neutrophils (%) (Auto) 68 42-75 % Lymphocytes (%) (Auto) 21 12-44 % Monocytes (%) (Auto) 9 0-12 % Eosinophils (%) (Auto) 2 0-10 % Basophils (%) (Auto) 0 0-10 % Neutrophils # (Auto) 4.2 1.8-7.8 X 10^3 Lymphocytes # (Auto) 1.3 1.0-4.0 X 10^3 Monocytes # (Auto) 0.6 0.0-1.0 X 10^3 Eosinophils # (Auto) 0.1 0.0-0.3 10^3/uL Basophils # (Auto) 0.0 0.0-0.1 10^3/uL Sodium Level 133 L 135-145 MMOL/L Potassium Level 4.2 3.6-5.0 MMOL/L Chloride Level 107 98-107 MMOL/L Carbon Dioxide Level 15 L 21-32 MMOL/L Anion Gap 11 5-14 MMOL/L Blood Urea Nitrogen 27 H 7-18 MG/DL Creatinine 1.42 H 0.60-1.30 MG/DL Estimat Glomerular Filtration Rate 47 BUN/Creatinine Ratio 19 Glucose Level 207 H 70-105 MG/DL Calcium Level 8.9 8.5-10.1 MG/DL Corrected Calcium 9.8 8.5-10.1 MG/DL Total Bilirubin 3.3 H 0.1-1.0 MG/DL Aspartate Amino Transf (AST/SGOT) 100 H 5-34 U/L Alanine Aminotransferase (ALT/SGPT) 138 H 0-55 U/L Alkaline Phosphatase 478 H 40-136 U/L Total Protein 6.3 L 6.4-8.2 GM/DL Albumin 2.9 L 3.2-4.5 GM/DL Lipase 231 H 8-78 U/L Thyroid Stimulating Hormone (TSH) 2.51 0.35-4.94 UIU/ML Free Thyroxine 1.05 0.70-1.48 NG/DL My Orders Orders - JESSICA MEDEROS MD Cbc With Automated Diff (01/18/19 12:58) Comprehensive Metabolic Panel (01/18/19 12:58) Lipase (01/18/19 12:58) Ed Iv/Invasive Line Start (01/18/19 12:58) Ed Iv/Invasive Line Start (01/18/19 13:46) Ns Iv 1000 Ml (Sodium Chloride 0.9%) (01/18/19 13:46) Ct Abdomen/Pelvis W (01/18/19 13:51) Iohexol Injection (Omnipaque 350 Mg/Ml 1 (01/18/19 14:15) Received Contrast (Hold Metformin- Contr (01/18/19 14:15) Thyroid Stimulating Hormone (01/18/19 15:29) Free T4 (Free Thyroxine) (01/18/19 15:29) Medications Given in ED Current Medications Medications Dose Ordered Sig/Steven Route Start Time Stop Time Status Last Admin Dose Admin Sodium Chloride 1,000 ml @ 0 mls/hr Q0M ONCE IV 01/18/19 13:46 01/18/19 13:48 DC 01/18/19 14:38 1,000 MLS/HR Vital Signs/I&O 01/18/19 01/18/19 12:41 15:42 Temp 97.9 97.9 Pulse 91 91 Resp 18 18 B/P (MAP) 140/80 (100) 140/80 (100) Pulse Ox 96 96 O2 Delivery Room Air Capillary Refill : Less Than 3 Seconds Blood Pressure Mean: 100 Progress Note #1: Time: 13:50 Progress Note Urine was negative for infection or blood. However, there was bilirubin and urobilinogen in the urine. Patient also had elevated transaminases and lipase. I discussed the case with Dr. Kaur. He recommends CT abdomen and pelvis with contrast with aggressive hydration and reduced contrast dose. Patient denies alcohol use. Progress Note #2: Progress Note CT scan demonstrated no discrete abnormalities. There was some questionable subtle intrahepatic dilatation. Common bile duct was not dilated. Question was raised about occlusion of his biliary stent. Patient also appeared constipated. Patient is stable at this time. I discussed his case with his primary care provider, Dr. Hernandez. We will arrange for close outpatient follow- up. She requested that he come to the clinic tomorrow morning for repeat labs. If abnormal, she can refer him to the appropriate facility for further assessment. A CD of his images was provided. He is to bring the CD to his appointment. I am faxing a copy of this record to Dr. Hernandez at [phone]. Diagnostic Imaging Diagonstic Imaging: CT Plain Films/CT/US/NM/MRI: abdomen, pelvis Comments CT abdomen and pelvis viewed by me and report reviewed. See report below: NAME: GLORIA WALTERS MED REC#: [id number] PT STATUS: DEP ER : 1935 PHYSICIAN: JESSICA MEDEROS MD ADMIT DATE: 01/18/19/ER Signed Date of Exam: 01/18/19 CT ABDOMEN/PELVIS W PROCEDURE: CT abdomen and pelvis with contrast. TECHNIQUE: Multiple contiguous axial images were obtained through the abdomen and pelvis after administration of intravenous contrast. Auto Exposure Controls were utilized during the CT exam to meet ALARA standards for radiation dose reduction. INDICATION: Elevated liver enzymes and bilirubin as well as dark urine. COMPARISON: Comparison is made with prior CT from 10/24/2017. FINDINGS: The lung bases are clear. The patient has a common bile duct stent. The intrahepatic bile ducts are slightly prominent. No extrahepatic biliary ductal dilatation is seen. No discrete liver mass is identified. No pancreatic mass is detected. Pancreas appears unremarkable. The spleen is unremarkable. No adrenal mass is detected. Kidneys are unremarkable. There is infrarenal abdominal aortic aneurysm treated with an aortic stent graft. The excluded aneurysm sac dimensions are 5.5 cm AP x 5.5 cm transverse compared with 5.3 x 5.8 cm. No definite findings to suggest endoleak are identified. The iliac limbs of the stent graft appear to be patent. No central retroperitoneal or mesenteric lymphadenopathy is seen. There is moderate stool throughout the colon consistent with constipation. No bowel obstruction is seen. There is no ascites. Bladder is unremarkable. Bony structures are unremarkable. IMPRESSION: 1. Treated abdominal aortic aneurysm. No endoleak is detected. 2. Common bile duct stent. There is very mild intrahepatic biliary ductal dilatation. No extrahepatic biliary ductal dilatation is seen. 3. Moderate stool suggestive of constipation. Dictated by: Dictated on workstation # [id number] Dict: 01/18/19 1431 Trans: 01/18/19 1555 Interpreted by: HEATHER KAUR MD Electronically signed by: HEATHER KAUR MD 01/18/19 1555 Departure Impression Primary Impression: Hyperbilirubinemia Additional Impressions: Constipation Qualified Codes: K59.00 - Constipation, unspecified Low back pain Qualified Codes: M54.5 - Low back pain Elevated transaminase level Elevated lipase Disposition: 01 HOME, SELF-CARE Condition: Improved Departure-Patient Inst. Decision time for Depature: 15:25 Referrals: NO,LOCAL PHYSICIAN (PCP/Family) Primary Care Physician Patient Instructions: Bilirubin Blood Level, Constipation in Adults Add. Discharge Instructions: Drink plenty of clear liquids, especially water. Go to the [facility] in [place], [place] tomorrow morning to have repeat blood work done. Return to the emergency room if symptoms worsen. For constipation, you may use MiraLAX (polyethylene glycol) as prescribed. All discharge instructions reviewed with patient and/or family. Voiced understanding. Scripts Polyethylene Glycol 3350 (Miralax) 119 Gm Powder 17 GM PO DAILY PRN for CONSTIPATION-1ST LINE, #1 EA Fill cap to line. Mix with 8-12 ounces water or juice. Prov: JESSICA MEDEROS MD 01/18/19 JESSICA MEDEROS MD Jan 18, 2019 13:05
[2019-01-18 13:07] LABS: BACTERIA,URINE TRACE /HPF; BILIRUBIN,URINE 2+ (NEGATIVE); RBC,URINE 0-2 /HPF
[2019-01-18 13:14] LABS: BASOPHILS % (AUTO) 0 % (0-10); EOSINOPHILS # (AUTO) 0.1 10^3/uL (0.0-0.3); EOSINOPHILS % (AUTO) 2 % (0-10); HEMATOCRIT 38 % (40-54); HEMOGLOBIN 12.9 G/DL (13.3-17.7); LYMPHOCYTES # (AUTO) 1.3 X 10^3 (1.0-4.0); LYMPHOCYTES % (AUTO) 21 % (12-44); MEAN CORPUSCULAR HEMOGLOBIN 32 PG (25-34); MEAN CORPUSCULAR HGB CONC 34 G/DL (32-36); MEAN CORPUSCULAR VOLUME 96 FL (80-99); MEAN PLATELET VOLUME 10.4 FL (7.4-10.4); MONOCYTES # (AUTO) 0.6 X 10^3 (0.0-1.0); MONOCYTES % (AUTO) 9 % (0-12); NEUTROPHILS # (AUTO) 4.2 X 10^3 (1.8-7.8); NEUTROPHILS % (AUTO) 68 % (42-75); PLATELET COUNT 187 10^3/uL (130-400); RED CELL DISTRIBUTION WIDTH 13.4 % (10.0-14.5); WHITE BLOOD COUNT 6.2 10^3/uL (4.3-11.0)
[2019-01-18 13:43] LABS: ALBUMIN 2.9 GM/DL (3.2-4.5); BILIRUBIN,TOTAL 3.3 MG/DL (0.1-1.0); CALCIUM 8.9 MG/DL (8.5-10.1); CREATININE SERUM 1.42 MG/DL (0.60-1.30); POTASSIUM 4.2 MMOL/L (3.6-5.0); TOTAL PROTEIN 6.3 GM/DL (6.4-8.2)
[2019-01-18] MEDS ORDERED: HOLD METFORMIN - RECEIVED CONTRAST 20 ML VIAL IV SCH (14:15)
[2019-01-18] MEDS ORDERED: IOHEXOL 350 MG/ML 100 ML (OMNIPAQUE 350) VIAL IV ONE (14:15)
[2019-01-18] MEDS: NS IV 1000 ML 1,000 ML IV ONE (14:38)
--- NOTE | 2019-01-18 15:07 | Diagnostic Imaging Report ---
PROCEDURE: CT abdomen and pelvis with contrast. TECHNIQUE: Multiple contiguous axial images were obtained through the abdomen and pelvis after administration of intravenous contrast. Auto Exposure Controls were utilized during the CT exam to meet ALARA standards for radiation dose reduction. INDICATION: Elevated liver enzymes and bilirubin as well as dark urine. COMPARISON: Comparison is made with prior CT from 10/24/2017. FINDINGS: The lung bases are clear. The patient has a common bile duct stent. The intrahepatic bile ducts are slightly prominent. No extrahepatic biliary ductal dilatation is seen. No discrete liver mass is identified. No pancreatic mass is detected. Pancreas appears unremarkable. The spleen is unremarkable. No adrenal mass is detected. Kidneys are unremarkable. There is infrarenal abdominal aortic aneurysm treated with an aortic stent graft. The excluded aneurysm sac dimensions are 5.5 cm AP x 5.5 cm transverse compared with 5.3 x 5.8 cm. No definite findings to suggest endoleak are identified. The iliac limbs of the stent graft appear to be patent. No central retroperitoneal or mesenteric lymphadenopathy is seen. There is moderate stool throughout the colon consistent with constipation. No bowel obstruction is seen. There is no ascites. Bladder is unremarkable. Bony structures are unremarkable. IMPRESSION: 1. Treated abdominal aortic aneurysm. No endoleak is detected. 2. Common bile duct stent. There is very mild intrahepatic biliary ductal dilatation. No extrahepatic biliary ductal dilatation is seen. 3. Moderate stool suggestive of constipation. Dictated by: Dictated on workstation # [id number]
[2019-01-18] MEDS ORDERED: POLY119P5 PO (15:28)
[2019-01-18 15:42] VITALS: BP 140/80
[2019-01-18 16:04] LABS: FREE T4 (FREE THYROXINE) 1.05 NG/DL (0.70-1.48)
== END 2019-01-18 15:56 | disposition home or self-care (01) ==
LOC: EDUNIT# 12:28 → ER 12:29
DX: E80.6 Other disorders of bilirubin metabolism (principal); K59.00 Constipation, unspecified; M54.5 Low back pain; R74.0 Nonspecific elevation of levels of transaminase and lactic acid dehydrogenase [LDH]; R74.8 Abnormal levels of other serum enzymes; I25.10 Atherosclerotic heart disease of native coronary artery without angina pectoris; I10 Essential (primary) hypertension; E78.00 Pure hypercholesterolemia, unspecified; M10.9 Gout, unspecified; E11.9 Type 2 diabetes mellitus without complications; E03.9 Hypothyroidism, unspecified; F32.9 Major depressive disorder, single episode, unspecified; K21.9 Gastro-esophageal reflux disease without esophagitis; Z87.19 Personal history of other diseases of the digestive system; Z90.49 Acquired absence of other specified parts of digestive tract; Z92.21 Personal history of antineoplastic chemotherapy; Z85.828 Personal history of other malignant neoplasm of skin; Z87.891 Personal history of nicotine dependence; Z95.5 Presence of coronary angioplasty implant and graft; Z87.442 Personal history of urinary calculi
CPT/HCPCS: 36415; 74177; 80053; 81000; 83690; 84439; 84443; 85025

== ENCOUNTER 2019-06-28 14:28 | Emergency (ER) | payer MEDICARE ==
[~2019-06-28] VITALS: Ht 170.1 cm; Wt 79.5 kg
[~2019-06-28 14:28] MED LIST changes: +POLY119P5 PO
--- NOTE | 2019-06-28 15:14 | ED Head Injury ---
General Chief Complaint: Trauma-Non Activation Stated Complaint: FALL;HEAD INJ Source: patient Exam Limitations: no limitations History of Present Illness Date Seen by Provider: Jun 28, 2019 Time Seen by Provider: 15:10 Initial Comments This 84-year-old male presents after he inadvertently fell on the concrete sustaining blunt trauma to his forehead and to the anterior aspect of his right knee. Patient had no loss of consciousness, denies neck pain, has no paresthesias or weakness in extremities, or trauma to the chest abdomen or pelvis. Patient is complaining of minimal discomfort over the left forehead and the anterior aspect of the right knee. Patient has had no nausea or vomiting. He does not know when his last tetanus immunization occurred. Allergies and Home Medications Allergies Coded Allergies: No Known Drug Allergies (Unverified , 07/17/18) Home Medications Allopurinol 300 Mg Tablet, 300 MG PO DAILY, (Reported) Levothyroxine Sodium 50 Mcg Tablet, 50 MCG PO DAILY, (Reported) Polyethylene Glycol 3350 119 Gm Powder, 17 GM PO DAILY PRN for CONSTIPATION-1ST LINE Fill cap to line. Mix with 8-12 ounces water or juice. Prescribed by: JESSICA MATA on 01/18/19 1528 Patient Home Medication List Home Medication List Reviewed: Yes Review of Systems Review of Systems Constitutional: No chills, No malaise, No weakness Eyes: Denies Blindness, Denies Blurred Vision Ears, Nose, Mouth, Throat: denies ear pain, denies nose pain, denies epistaxis Respiratory: No cough Cardiovascular: No chest pain Gastrointestinal: No abdominal pain, No nausea, No vomiting Genitourinary: no symptoms reported Musculoskeletal: No back pain; joint pain (right knee) Skin: No change in color, No rash Psychiatric/Neurological: No Symptoms Reported Endocrine: No Symptoms Reported Hematologic/Lymphatic: No Symptoms Reported Past Bgluril-Luqjfj-Txrouf Hx Past Med/Social Hx: Reviewed Nursing Past Med/Soc Hx Patient Social History Type Used: Cigarettes Former Smoker, Quit: Aug 04, 1991 Recent Hopitalizations: No Immunizations Up To Date Tetanus Booster (TDap): Unknown PED Vaccines UTD: No Date of Influenza Vaccine: Jun 26, 2018 Seasonal Allergies Seasonal Allergies: No Past Medical History Surgeries: Yes (aortic aneurysm repair in , biliary stent) Abdominal, Coronary Stent, Gallbladder, Renal Respiratory: No Currently Using CPAP: No Currently Using BIPAP: No Cardiac: Yes Coronary Artery Disease, High Cholesterol, Hypertension Neurological: Yes (pt stated had a stroke 15 years ago but has not been diagnosed) Reproductive Disorders: No Sexually Transmitted Disease: No HIV/AIDS: No Genitourinary: Yes Prostate Problems, Kidney Stones Gastrointestinal: Yes (HX OF GALLSTONES, ERCP) Gastroesophageal Reflux, Ulcer, Gall Bladder Disease Musculoskeletal: No Arthritis, Chronic Back Pain, Gout Endocrine: Yes Diabetes, Insulin dep, Hypothyroidsim HEENT: Yes Cataract, Glaucoma Loss of Vision: Bilateral Hearing Impairment: Denies 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 Physical Exam Vital Signs Vital Signs - First Documented Capillary Refill : Height, Weight, BMI Height: 5'7.50" Weight: 160lbs. 4.0oz. [id number]; 22.1 BMI Method:Stated General Appearance: WD/WN, no apparent distress HEENT: other (there is an abrasion with slight ecchymosis left forehead.) Neck: non-tender ( ENT exam was unremarkable), full range of motion Cardiovascular: normal peripheral pulses, regular rate, rhythm, no murmur Respiratory: lungs clear, normal breath sounds Gastrointestinal: normal bowel sounds, non tender, soft Back: normal inspection, no CVA tenderness Extremities: other (there is mild tenderness to palpation over the anterior aspect of the right knee. No crepitus or instability was noted.) Psychiatric: alert, oriented x 3 Motor/Sensory: no motor deficit, no sensory deficit Skin: other (abrasion to the left forehead) Alto Coma Score Best Eye Response: (4) Open Spontaneously Best Verbal Response: (5) Oriented Best Motor Response: (6) Obeys Commands Alto Total: 15 Progress/Results/Core Measures Results/Orders My Orders Orders - MARIANA RUCKER MD Ct Head Wo (06/28/19 14:44) Knee, Right, 3 Views (06/28/19 14:44) Dipht,Pertuss(Acell),Tet Adult (Boostrix (06/28/19 15:30) Vital Signs/I&O 06/28/19 06/28/19 14:39 14:39 Temp 36.5 36.5 Pulse 90 90 Resp 18 18 B/P (MAP) 181/103 (129) 181/103 (129) Progress Progress Note : Time: 15:[address] of the head and x-ray of his right knee film demonstrated evidence of acute pathology. Patient was reassured. He was asked to follow this caregiver tomorrow. He was asked to return if any problems or questions. Departure Impression Primary Impression: Closed head injury Qualified Codes: S09.90XA - Unspecified injury of head, initial encounter Additional Impression: Contusion of right knee Qualified Codes: S80.01XA - Contusion of right knee, initial encounter Disposition: HOME, SELF-CARE Condition: Improved Departure-Patient Inst. Decision time for Depature: 15:33 Referrals: NEEL AMAYA MD (PCP) Primary Care Physician Patient Instructions: Closed Head Injury (DC) Add. Discharge Instructions: Rest at home today. Ibuprofen for pain. Return if any problems or questions. All discharge instructions reviewed with patient and/or family. Voiced understanding. MARIANA RUCKER MD Jun 28, 2019 15:14
--- NOTE | 2019-06-28 15:24 | Diagnostic Imaging Report ---
INDICATION: Pain status post fall. COMPARISON: None. FINDINGS: Three views of the right knee joint demonstrate no acute fracture or dislocation. No focal osseous lesions are seen. No significant joint effusion is seen. Mild osteoarthritic changes are noted. The surrounding soft tissue structures are unremarkable. There are no radiopaque foreign bodies. IMPRESSION: 1. No acute fractures or dislocations of the right knee joint. Dictated by: Dictated on workstation # [id number]
[2019-06-28] MEDS ORDERED: TETANUS,DIPTH,PERTUSS P/F (BOOSTRIX) 0.5 ML VIAL IM ONE (15:30)
[2019-06-28 15:46] VITALS: BP 155/86
--- NOTE | 2019-06-28 16:31 | Diagnostic Imaging Report ---
PROCEDURE: CT head without contrast. TECHNIQUE: Multiple contiguous axial images were obtained through the brain without the use of intravenous contrast. Auto Exposure Controls were utilized during the CT exam to meet ALARA standards for radiation dose reduction. INDICATION: Fall with head injury. COMPARISON: Comparison is made to study of 12/22/2016. FINDINGS: There is a prominent left forehead contusion. There is no evidence of underlying fracture. Ventricles and sulci are diffusely prominent without evidence of intracranial hemorrhage. There is no paranasal sinus air-fluid level. Atherosclerotic calcification is seen within distal internal carotid and vertebral arteries. 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 IMPRESSION: Senescent findings in the brain with left forehead scalp contusion. No acute intracranial hemorrhage is identified. Dictated by: Dictated on workstation # [id number]
== END 2019-06-28 15:46 | disposition home or self-care (01) ==
LOC: EDUNIT# 14:28 → ER 14:28
DX: S09.90XA Unspecified injury of head, initial encounter (principal); S80.01XA Contusion of right knee, initial encounter; I10 Essential (primary) hypertension; E11.9 Type 2 diabetes mellitus without complications; E03.9 Hypothyroidism, unspecified; E78.00 Pure hypercholesterolemia, unspecified; I25.10 Atherosclerotic heart disease of native coronary artery without angina pectoris; F32.9 Major depressive disorder, single episode, unspecified; K21.9 Gastro-esophageal reflux disease without esophagitis; M10.9 Gout, unspecified; R40.2142 Coma scale, eyes open, spontaneous, at arrival to emergency department; R40.2252 Coma scale, best verbal response, oriented, at arrival to emergency department; R40.2362 Coma scale, best motor response, obeys commands, at arrival to emergency department; Z85.828 Personal history of other malignant neoplasm of skin; Z86.73 Personal history of transient ischemic attack (TIA), and cerebral infarction without residual deficits; Z23 Encounter for immunization; Z87.442 Personal history of urinary calculi; Z95.5 Presence of coronary angioplasty implant and graft; Z87.891 Personal history of nicotine dependence; W19.XXXA Unspecified fall, initial encounter
CPT/HCPCS: 70450; 73562; 90715

== ENCOUNTER 2020-08-30 10:16 | Inpatient (IN) | payer MEDICARE, MEDICAID ==
[~2020-08-30] VITALS: Ht 170.1 cm; Wt 79.5 kg
[~2020-08-30 10:16] MED LIST changes: +OXYB5TAB13; -OXYB5TAB9
--- NOTE | 2020-08-30 10:44 | ED Neurological Problem ---
General Chief Complaint: Altered Mental Status Stated Complaint: CONFUSION Nursing Triage Note: PT BR[facility]GHT [facility] BY [facility] WITH COMPLAINT OF ALTERED MENTAL STATUS. PT FELL OUTSIDE YESTERDAY AND HIT HEAD. DID NOT SEEK TREATMENT AFTER FALL. THIS MORNING STARTED WITH CONFUSION. PT IS NON VERBAL AT TIME OF TRIAGE. WILL TRACK WITH HIS EYES. MOVES ALL EXTREMITIES. Nursing Sepsis Screen: No Definite Risk Source: patient, EMS, senior care records Exam Limitations: clinical condition History of Present Illness Date Seen by Provider: Aug 30, 2020 Time Seen by Provider: 10:17 Initial Comments This 85-year-old gentleman presents to the emergency room via EMS from [facility] With states with altered mental status. He apparently had a fall yesterday resulting in an abrasion to his head. He also has some skin tears on his right elbow. Last known well time was sometime last night. This morning when staff was called into his room they noted altered mental status. Patient is normally alert and talkative. Today he will not follow commands and will not talk. He does respond to touch and voice. He does track with his eyes bilaterally. Blood sugars in the 130s for EMS. Allergies and Home Medications Allergies Coded Allergies: No Known Drug Allergies (Unverified , 07/17/18) Home Medications Allopurinol 300 Mg Tablet, 300 MG PO DAILY, (Reported) Cholecalciferol (Vitamin D3) 1,250 Mcg Capsule, 1,000 MCG PO BID Prescribed by: TOMER BOO on 08/30/20 154 Docusate Sodium 100 Mg Tablet, 100 MG PO BID Prescribed by: TOMER BOO on 08/30/20 154 Levothyroxine Sodium 75 Mcg Tablet, 75 MCG PO DAILY Prescribed by: TOMER BOO on 08/30/20 154 Mv-Mn/FA/Vit K/Lycop/Lut/Zeaxa 1 Each Tablet, 1 EACH PO DAILY Prescribed by: TOMER BOO on 08/30/20 154 Pantoprazole Sodium 40 Mg Tablet.dr, 40 MG PO DAILY Prescribed by: TOMER BOO on 08/30/20 154 Vitamin D 10 Mcg Tablet, 1,000 UNITS PO DAILY Prescribed by: TOMER BOO on 08/30/20 154 Patient Home Medication List Home Medication List Reviewed: Yes Review of Systems Review of Systems Constitutional: no symptoms reported Eyes: No Symptoms Reported Ears, Nose, Mouth, Throat: no symptoms reported Respiratory: no symptoms reported Cardiovascular: no symptoms reported Gastrointestinal: no symptoms reported Genitourinary: no symptoms reported Musculoskeletal: no symptoms reported Skin: see HPI Psychiatric/Neurological: See HPI Endocrine: No Symptoms Reported Past Mngdboh-Knqdqu-Zabmge Hx Past Med/Social Hx: Reviewed Nursing Past Med/Soc Hx Patient Social History Alcohol Use: Denies Use Recreational Drug Use: No Smoking Status: Former Smoker Type Used: Cigarettes Former Smoker, Quit: Aug 04, 1991 2nd Hand Smoke Exposure: No Recent Foreign Travel: No Contact w/Someone Who Travel: No Recent Infectious Disease Expo: No Recent Hopitalizations: No Immunizations Up To Date Tetanus Booster (TDap): Unknown PED Vaccines UTD: No Date of Influenza Vaccine: Jun 26, 2018 Seasonal Allergies Seasonal Allergies: No Past Medical History Surgeries: Yes (aortic aneurysm repair in [place], biliary stent) Abdominal, Coronary Stent, Gallbladder, Renal Respiratory: No Currently Using CPAP: No Currently Using BIPAP: No Cardiac: Yes Coronary Artery Disease, High Cholesterol, Hypertension Neurological: Yes (pt stated had a stroke 15 years ago but has not been diagnosed) Reproductive Disorders: No Sexually Transmitted Disease: No HIV/AIDS: No Genitourinary: Yes Prostate Problems, Kidney Stones Gastrointestinal: Yes (HX OF GALLSTONES, ERCP) Gastroesophageal Reflux, Ulcer, Gall Bladder Disease Musculoskeletal: No Arthritis, Chronic Back Pain, Gout Endocrine: Yes Diabetes, Insulin dep, Hypothyroidsim HEENT: Yes Cataract, Glaucoma Loss of Vision: Bilateral Hearing Impairment: Denies 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 Physical Exam Vital Signs Vital Signs - First Documented 08/30/20 10:18 Temp 35.8 Pulse 96 Resp 27 B/P (MAP) 166/85 (112) Pulse Ox 100 O2 Delivery Room Air Capillary Refill : Less Than 3 Seconds Height, Weight, BMI Height: 5'7.50" Weight: 160lbs. 4.0oz. [id number]; 27.00 BMI Method:Stated General Appearance: WD/WN, no apparent distress HEENT: PERRL/EOMI, normal ENT inspection, other (Will not open his mouth. Abrasion on the right frontal scalp) Neck: non-tender, normal inspection Respiratory: lungs clear, normal breath sounds, no respiratory distress Cardiovascular: regular rate, rhythm, no edema, no murmur Gastrointestinal: normal bowel sounds, non tender, soft, other (Bruising on the lower abdomen, likely due to insulin injections) Extremities: no pedal edema, other (Skin tears on the right elbow) Neurologic/Psychiatric: other (He is not following commands or speaking. He moves all 4 extremities.) Crainal Nerves: PERRL Skin: normal color, warm/dry, other (Skin tears and abrasions as above) Progress/Results/Core Measures Results/Orders Lab Results Laboratory Tests Test 08/30/20 10:28 08/30/20 11:25 08/30/20 12:00 Range/Units White Blood Count 8.7 4.3-11.0 10^3/uL Red Blood Count 4.41 4.30-5.52 10^6/uL Hemoglobin 14.3 13.3-17.7 g/dL Hematocrit 44 40-54 % Mean Corpuscular Volume 99 80-99 fL Mean Corpuscular Hemoglobin 32 25-34 pg Mean Corpuscular Hemoglobin Concent 33 32-36 g/dL Red Cell Distribution Width 13.1 10.0-14.5 % Platelet Count 165 130-400 10^3/uL Mean Platelet Volume 10.6 9.0-12.2 fL Immature Granulocyte % (Auto) 1 % Neutrophils (%) (Auto) 59 42-75 % Lymphocytes (%) (Auto) 32 12-44 % Monocytes (%) (Auto) 7 0-12 % Eosinophils (%) (Auto) 1 0-10 % Basophils (%) (Auto) 1 0-10 % Neutrophils # (Auto) 5.1 1.8-7.8 10^3/uL Lymphocytes # (Auto) 2.8 1.0-4.0 10^3/uL Monocytes # (Auto) 0.6 0.0-1.0 10^3/uL Eosinophils # (Auto) 0.1 0.0-0.3 10^3/uL Basophils # (Auto) 0.0 0.0-0.1 10^3/uL Immature Granulocyte # (Auto) 0.0 0.0-0.1 10^3/uL Sodium Level 139 135-145 MMOL/L Potassium Level 3.7 3.6-5.0 MMOL/L Chloride Level 104 98-107 MMOL/L Carbon Dioxide Level 17 L 21-32 MMOL/L Anion Gap 18 H 5-14 MMOL/L Blood Urea Nitrogen 24 H 7-18 MG/DL Creatinine 1.95 H 0.60-1.30 MG/DL Estimat Glomerular Filtration Rate 33 BUN/Creatinine Ratio 12 Glucose Level 135 H 70-105 MG/DL Calcium Level 9.2 8.5-10.1 MG/DL Corrected Calcium 9.4 8.5-10.1 MG/DL Magnesium Level 2.0 1.6-2.4 MG/DL Total Bilirubin 0.8 0.1-1.0 MG/DL Aspartate Amino Transf (AST/SGOT) 26 5-34 U/L Alanine Aminotransferase (ALT/SGPT) 24 0-55 U/L Alkaline Phosphatase 167 H 40-136 U/L C-Reactive Protein High Sensitivity 2.73 H 0.00-0.50 MG/DL Total Protein 7.1 6.4-8.2 GM/DL Albumin 3.7 3.2-4.5 GM/DL Thyroid Stimulating Hormone (TSH) 6.11 H 0.35-4.94 UIU/ML Free Thyroxine 1.21 0.70-1.48 NG/DL Glucometer 114 H 70-110 MG/DL Urine Color YELLOW Urine Clarity CLEAR Urine pH 8.0 5-9 Urine Specific Sophia 1.010 L 1.016-1.022 Urine Protein NEGATIVE NEGATIVE Urine Glucose (UA) NEGATIVE NEGATIVE Urine Ketones TRACE H NEGATIVE Urine Nitrite NEGATIVE NEGATIVE Urine Bilirubin NEGATIVE NEGATIVE Urine Urobilinogen 0.2 < = 1.0 MG/DL Urine Leukocyte Esterase NEGATIVE NEGATIVE Urine RBC (Auto) NEGATIVE NEGATIVE Urine RBC RARE /HPF Urine WBC RARE /HPF Urine Squamous Epithelial Cells 0-2 /HPF Urine Crystals NONE /LPF Urine Bacteria NEGATIVE /HPF Urine Casts NONE /LPF Urine Mucus NEGATIVE /LPF Urine Culture Indicated NO Urine Opiates Screen NEGATIVE NEGATIVE Urine Oxycodone Screen NEGATIVE NEGATIVE Urine Methadone Screen NEGATIVE NEGATIVE Urine Propoxyphene Screen NEGATIVE NEGATIVE Urine Barbiturates Screen NEGATIVE NEGATIVE Ur Tricyclic Antidepressants Screen NEGATIVE NEGATIVE Urine Phencyclidine Screen NEGATIVE NEGATIVE Urine Amphetamines Screen NEGATIVE NEGATIVE Urine Methamphetamines Screen NEGATIVE NEGATIVE Urine Benzodiazepines Screen NEGATIVE NEGATIVE Urine Cocaine Screen NEGATIVE NEGATIVE Urine Cannabinoids Screen NEGATIVE NEGATIVE My Orders Orders - JESSICA MEDEROS MD Ct Head/Cervical Spine Wo (08/30/20 10:23) Thyroid Stimulating Hormone (08/30/20 10:42) Free T4 (Free Thyroxine) (08/30/20 10:42) Cbc With Automated Diff (08/30/20 10:59) Comprehensive Metabolic Panel (08/30/20 10:59) Hs C Reactive Protein (08/30/20 10:59) Magnesium (08/30/20 10:59) Ua Culture If Indicated (08/30/20 10:59) Ed Iv/Invasive Line Start (08/30/20 10:59) Ns Iv 1000 Ml (Sodium Chloride 0.9%) (08/30/20 11:45) Lactated Ringers (Lr 1000 Ml Iv Solution (08/30/20 12:15) Vital Signs/I&O 08/30/20 10:18 Temp 35.8 Pulse 96 Resp 27 B/P (MAP) 166/85 (112) Pulse Ox 100 O2 Delivery Room Air 08/31/20 00:00 Intake Total 500 ml Balance 500 ml Blood Pressure Mean: 112 Progress Progress Note #1: Time: 11:22 Progress Note Patient arrived to the emergency room it was reported that patient was found in his current state this morning and there was an unknown well time of sometime last night. However, we contacted to the senior care for clarification on medications and last known well time, and they reported his last known well time was actually 08:00. He was seen sometime between 08:00 and 08:30 at breakfast time and had a conversation with one of the med aids. She found him to be normal at that time. Then sometime after 09:00 he was found in his present state and worsened. Progress Note #2: Time: 11:34 Progress Note I discussed this case with Dr. Dale at [facility]. Because this patient has more apathy rather than signs of aphasia, he recommends against alteplase at this time. We will obtain a CT angiogram for further evaluation. Progress Note #3: Progress Note After further evaluation CT angiogram of the head and neck was not obtained due to patient's renal function. I had an additional conversation with Dr. Dale about this. Since patient appears more encephalopathic rather than to have suffered a stroke syndrome, risks did not appear to outweigh the benefits of exposing the patient to contrast dye. Patient became increasingly active and agitated throughout his ER stay. He ultimately ended up receiving Haldol 2.5 mg IM and Ativan 0.5 mg IV. He did not appear to exhibit any specific speech deficits or focal weakness. Dr. Downs presented to the emergency room to personally assess the patient. Patient's syndrome did not appear to have anything to do with his fall yesterday as symptoms were new today and he was cleared from a trauma perspective with imaging. Diagnostic Imaging Diagonstic Imaging: CT Plain Films/CT/US/NM/MRI: c-spine, head Comments CT head and cervical spine viewed by me and stat rad report reviewed. See report below: NAME: GLORIA WALTERS [facility] REC#: [id number] PT STATUS: REG ER : 1935 PHYSICIAN: JESSICA MEDEROS MD ADMIT DATE: 08/30/20/ER Draft Date of Exam:08/30/20 CT HEAD/CERVICAL SPINE WO EXAMINATION: CT brain and CT cervical spine from 08/30/2020. TECHNIQUE: Multiple contiguous axial images were obtained through the brain and cervical spine without the use of intravenous contrast. Sagittal and coronal reformations through the cervical spine were then performed. Auto Exposure Controls were utilized during the CT exam to meet ALARA standards for radiation dose reduction. INDICATION: Status post trauma, altered mental status. Fell outside yesterday and hit head. Confusion since this morning. COMPARISON: 06/28/2019 FINDINGS: Mild scattered ischemic changes noted in a periventricular distribution. No acute hemorrhage or infarct is seen. No mass, mass effect or midline shift. No hydrocephalus. There is near complete opacification of visualized right maxillary sinus which is new since 2019. Clinical correlation for sinusitis recommended. Some hyperdensity is noted within the region and could be secondary to hemorrhage inspissated mucus or fungal infection. There is very poor dentition in the adjacent maxilla right worse than left. Clinical correlation recommended. There may be mild destructive change of the right maxilla as well. Remaining osseous structures are unremarkable. Remaining sinuses demonstrate chronic thickening of the ethmoid air cells. Mastoid air cells are clear. Nonspecific hyperdensities noted along the left auditory canal likely chronic calcification but clinical correlation recommended. IMPRESSION: 1. No acute intracranial process with chronic changes in the brain and also nonspecific changes in the right maxillary sinus and maxilla. See above discussion and correlate clinically. Other findings as above. CT CERVICAL SPINE: There is normal height and alignment of the vertebral bodies with anterior spurring diffusely throughout the cervical spine. Intervertebral disc space narrowing most marked at the C5-C6. No acute fracture is appreciated. No subluxations. Lung apices are clear. Prevertebral soft tissues are unremarkable. IMPRESSION: 1. Diffuse multilevel degenerative findings with no acute disease appreciated. Dictated on workstation # [id number] Dict: 08/30/20 1057 Trans: 08/30/20 1118 [facility] [id number] Interpreted by: KEMAR FLEMING MD Diagonstic Imaging: Xray Plain Films/CT/US/NM/MRI: chest Comments NAME: GLORIA WALTERS MED REC#: [id number] PT STATUS: ADM IN : 1935 PHYSICIAN: UCHE DOWNS MD ADMIT DATE: 08/30/20 Signed Date of Exam:08/30/20 CHEST 1 VIEW, AP/PA ONLY Indication: Pneumonia Single view of the chest shows normal heart size and vascularity. The lungs are clear. There is no effusion or pneumothorax. There is no bony abnormality. IMPRESSION: Normal chest with no change from 03/22/2017. Dictated by: Dictated on workstation # [id number] Dict: 08/30/20 1420 Trans: 08/30/20 1458 [facility] [id number] Interpreted by: DIONICIO OSBORN MD Electronically signed by: DIONICIO OSBORN MD 08/30/20 1457 Reviewed: Reviewed by Me Departure Communication (Admissions) Case reviewed with Dr. Downs who presented to the ER to personally evaluate the patient. Impression Primary Impression: AMS (altered mental status) Qualified Codes: R41.82 - Altered mental status, unspecified Additional Impressions: Agitation KASSIDY (acute kidney injury) Disposition: ADMITTED INPATIENT Condition: Improved Departure-Patient Inst. Referrals: NEEL AMAYA MD (PCP/Family) Primary Care Physician Scripts Mv-Mn/FA/Vit K/Lycop/Lut/Zeaxa (Ocuvite Eye + Multi Tablet) 1 Each Tablet 1 EACH PO DAILY, #30 TAB Prov: UCHE DOWNS MD 08/30/20 Vitamin D (Vitamin D3) 10 Mcg Tablet 1000 UNITS PO DAILY, #30 TAB Prov: UCHE DOWNS MD 08/30/20 Pantoprazole Sodium (Protonix) 40 Mg Tablet.dr 40 MG PO DAILY for 30 Days, #30 TAB Prov: UCHE DOWNS MD 08/30/20 Docusate Sodium (Docusate Sodium) 100 Mg Tablet 100 MG PO BID, #60 TAB Prov: UCHE DOWNS MD 08/30/20 Cholecalciferol (Vitamin D3) (Vitamin D3) 1,250 Mcg Capsule 1000 MCG PO BID, #60 CAP Prov: UCHE DOWNS MD 08/30/20 Levothyroxine Sodium (Levothyroxine Sodium) 75 Mcg Tablet 75 MCG PO DAILY, #30 TAB Prov: UCHE DOWNS MD 08/30/20 JESSICA MEDEROS MD Aug 30, 2020 10:44
[2020-08-30 11:18] LABS: FREE T4 (FREE THYROXINE) 1.21 NG/DL (0.70-1.48)
--- NOTE | 2020-08-30 11:18 | Diagnostic Imaging Report ---
EXAMINATION: CT brain and CT cervical spine from 08/30/2020. TECHNIQUE: Multiple contiguous axial images were obtained through the brain and cervical spine without the use of intravenous contrast. Sagittal and coronal reformations through the cervical spine were then performed. Auto Exposure Controls were utilized during the CT exam to meet ALARA standards for radiation dose reduction. INDICATION: Status post trauma, altered mental status. Fell outside yesterday and hit head. Confusion since this morning. COMPARISON: 06/28/2019 FINDINGS: Mild scattered ischemic changes noted in a periventricular distribution. No acute hemorrhage or infarct is seen. No mass, mass effect or midline shift. No hydrocephalus. There is near complete opacification of visualized right maxillary sinus which is new since 2019. Clinical correlation for sinusitis recommended. Some hyperdensity is noted within the region and could be secondary to hemorrhage inspissated mucus or fungal infection. There is very poor dentition in the adjacent maxilla right worse than left. Clinical correlation recommended. There may be mild destructive change of the right maxilla as well. Remaining osseous structures are unremarkable. Remaining sinuses demonstrate chronic thickening of the ethmoid air cells. Mastoid air cells are clear. Nonspecific hyperdensities noted along the left auditory canal likely chronic calcification but clinical correlation recommended. IMPRESSION: 1. No acute intracranial process with chronic changes in the brain and also nonspecific changes in the right maxillary sinus and maxilla. See above discussion and correlate clinically. Other findings as above. CT CERVICAL SPINE: There is normal height and alignment of the vertebral bodies with anterior spurring diffusely throughout the cervical spine. Intervertebral disc space narrowing most marked at the C5-C6. No acute fracture is appreciated. No subluxations. Lung apices are clear. Prevertebral soft tissues are unremarkable. IMPRESSION: 1. Diffuse multilevel degenerative findings with no acute disease appreciated. Dictated by: Dictated on workstation # [id number]
[2020-08-30 11:24] LABS: BASOPHILS % (AUTO) 1 % (0-10); EOSINOPHILS # (AUTO) 0.1 10^3/uL (0.0-0.3); EOSINOPHILS % (AUTO) 1 % (0-10); HEMATOCRIT 44 % (40-54); HEMOGLOBIN 14.3 g/dL (13.3-17.7); LYMPHOCYTES # (AUTO) 2.8 10^3/uL (1.0-4.0); LYMPHOCYTES % (AUTO) 32 % (12-44); MEAN CORPUSCULAR HEMOGLOBIN 32 pg (25-34); MEAN CORPUSCULAR HGB CONC 33 g/dL (32-36); MEAN CORPUSCULAR VOLUME 99 fL (80-99); MEAN PLATELET VOLUME 10.6 fL (9.0-12.2); MONOCYTES # (AUTO) 0.6 10^3/uL (0.0-1.0); MONOCYTES % (AUTO) 7 % (0-12); NEUTROPHILS # (AUTO) 5.1 10^3/uL (1.8-7.8); NEUTROPHILS % (AUTO) 59 % (42-75); PLATELET COUNT 165 10^3/uL (130-400); WHITE BLOOD COUNT 8.7 10^3/uL (4.3-11.0)
[2020-08-30 11:27] LABS: ALBUMIN 3.7 GM/DL (3.2-4.5); POTASSIUM 3.7 MMOL/L (3.6-5.0)
[2020-08-30 11:28] LABS: CALCIUM 9.2 MG/DL (8.5-10.1)
[2020-08-30 11:30] LABS: TOTAL PROTEIN 7.1 GM/DL (6.4-8.2)
[2020-08-30 11:31] LABS: BILIRUBIN,TOTAL 0.8 MG/DL (0.1-1.0)
[2020-08-30 11:33] LABS: CREATININE SERUM 1.95 MG/DL (0.60-1.30)
[2020-08-30] MEDS ORDERED: NS IV 1000 ML 1,000 ML IV ONE (11:45)
[2020-08-30 12:05] LABS: BILIRUBIN,URINE NEGATIVE (NEGATIVE); CLARITY,URINE CLEAR; COLOR,URINE YELLOW; GLUCOSE, URINE (UA) NEGATIVE (NEGATIVE); KETONES,URINE TRACE (NEGATIVE); LEUKOCYTE ESTERASE ,URINE NEGATIVE (NEGATIVE); NITRITE,URINE NEGATIVE (NEGATIVE); PROTEIN,URINE NEGATIVE (NEGATIVE)
[2020-08-30] MEDS ORDERED: LACTATED RINGERS 1,000 ML IV ONE ×2 (12:15→15:12)
[2020-08-30 12:23] LABS: BACTERIA,URINE NEGATIVE /HPF; RBC,URINE RARE /HPF; SQUAMOUS EPITHELIAL CELL,UR 0-2 /HPF; WBC,URINE RARE /HPF
[2020-08-30] MEDS ORDERED: HALOPERIDOL 5 MG/ML (HALDOL) VIAL ONE (13:28)
[2020-08-30] MEDS ORDERED: HALOPERIDOL 5 MG/ML (HALDOL) VIAL IM ONE (13:30)
--- NOTE | 2020-08-30 13:33 | History & Physical-Hospitalist ---
History of Present Illness HPI/Chief Complaint Pt is an 85yoCM with a PMH of hypothyroidism who presented to the ER due to confusion. He normally lives in assisted living at [facility] and is able to carry on a conversation and walk and care for his dog. This morning he was not his self so the [facility] called EMS to bring him in for evaluation. At first it was thought that this all started last night but when it was found that it started this morning he was worked up for an acute CVA. CT head was negative. Dr Shanks discussed the case with Dr Gonzalez at [facility] stroke stroke neurology who recommended against TPA given no focal findings. He is being admitted for AMS. On my interview he had just been incontinent of bowel movement and was at first resisting staff attempts to clean him up. When I asked him how he was doing he stated that he "felt like shit." But otherwise would not answer any questions. All history is obtained from the record. Source: patient (n) Date Seen 08/30/20 Time Seen by a Provider: 13:24 Attending Physician PCP Monalisa Diaz MD Referring Physician Date of Admission Home Medications & Allergies Home Medications Reviewed patient Home Medication Reconciliation performed by pharmacy medication reconciliations recycling technician and/or nursing. Patients Allergies have been reviewed. Allergies Allergies Coded Allergies No Known Drug Allergies (Jxrrcqfabz76/22/18) Past Fnpwucg-Vccbyf-[id number] Hx Past Med/Social Hx: Reviewed Nursing Past Med/Soc Hx Patient Social History Employed/Student: retired Alcohol Use: Denies Use Recreational Drug Use: No Smoking Status: Former Smoker Former Smoker, Quit: Aug 04, 1991 Type Used: Cigarettes 2nd Hand Smoke Exposure: No Recent Foreign Travel: No Contact w/other who traveled: No Recent Hopitalizations: No Recent Infectious Disease Expo: No Immunizations Up To Date Tetanus Booster (TDap): Unknown Pediatric: No Date of Influenza Vaccine: Jun 26, 2018 Seasonal Allergies Seasonal Allergies: No Past Medical History Surgeries: Abdominal, Coronary Stent, Gallbladder, Renal Currently Using CPAP: No Currently Using BIPAP: No Cardiac: Coronary Artery Disease, High Cholesterol, Hypertension Reproductive: No Sexually Transmitted Disease: No HIV/AIDS: No Genitourinary: Prostate Problems, Kidney Stones Gastrointestinal: Gastroesophageal Reflux, Ulcer, Gall Bladder Disease Musculoskeletal: Arthritis, Chronic Back Pain, Gout Endocrine: Diabetes, Insulin dep, Hypothyroidsim HEENT: Cataract, Glaucoma Loss of Vision: Bilateral Hearing Impairment: Denies Cancer: Skin Did You Recieve Any Treatments: Yes What Type of Treatment Did You: Radiation, Surgical Intervention Psychosocial: Depression History of Blood Disorders: No Adverse Reaction to Blood Balderas: No Family History Reviewed Nursing Family Hx Patient reports no known family medical history. No Pertinent Family Hx Review of Systems ROS-Unable to Obtain: confusion Constitutional: see HPI Physical Exam Physical Exam Vital Signs Vital Signs - First Documented 08/30/20 10:18 Temp 35.8 Pulse 96 Resp 27 B/P (MAP) 166/85 (112) Pulse Ox 100 O2 Delivery Room Air Capillary Refill : Less Than 3 Seconds Height, Weight, BMI Height: 5'7.50" Weight: 160lbs. 4.0oz. [id number]; 27.00 BMI Method:Stated General Appearance: Other (confused and agitated ) HEENT: PERRL/EOMI, Moist Mucous Membranes; No Scleral Icterus (L), No Scleral Icterus (R) Neck: Normal Inspection, Supple Respiratory: Lungs Clear, No Accessory Muscle Use, No Respiratory Distress Cardiovascular: Regular Rate, Rhythm, No Murmur Gastrointestinal: Normal Bowel Sounds, Non Tender, Soft, Other (scar consistent with surgery in RUQ) Extremity: Normal Capillary Refill, No Calf Tenderness, No Pedal Edema Neurologic/Psychiatric: Alert; No Aphasia; Disoriented, Other (encephalopathic) Skin: Normal Color, Warm/Dry; No Mottled Results Results/Procedures Labs Laboratory Tests 08/30/20 10:28 Patient resulted labs reviewed. Imaging: Reviewed Imaging Report Imaging [facility] [place] NAME: GLORIA WALTERS [facility] REC#: [id number] PT STATUS: REG ER : 1935 PHYSICIAN: JESSICA MEDEROS MD ADMIT DATE: 08/30/20/ER Draft Date of Exam:08/30/20 CT HEAD/CERVICAL SPINE WO EXAMINATION: CT brain and CT cervical spine from 08/30/2020. TECHNIQUE: Multiple contiguous axial images were obtained through the brain and cervical spine without the use of intravenous contrast. Sagittal and coronal reformations through the cervical spine were then performed. Auto Exposure Controls were utilized during the CT exam to meet ALARA standards for radiation dose reduction. INDICATION: Status post trauma, altered mental status. Fell outside yesterday and hit head. Confusion since this morning. COMPARISON: 06/28/2019 FINDINGS: Mild scattered ischemic changes noted in a periventricular distribution. No acute hemorrhage or infarct is seen. No mass, mass effect or midline shift. No hydrocephalus. There is near complete opacification of visualized right maxillary sinus which is new since 2019. Clinical correlation for sinusitis recommended. Some hyperdensity is noted within the region and could be secondary to hemorrhage inspissated mucus or fungal infection. There is very poor dentition in the adjacent maxilla right worse than left. Clinical correlation recommended. There may be mild destructive change of the right maxilla as well. Remaining osseous structures are unremarkable. Remaining sinuses demonstrate chronic thickening of the ethmoid air cells. Mastoid air cells are clear. Nonspecific hyperdensities noted along the left auditory canal likely chronic calcification but clinical correlation recommended. IMPRESSION: 1. No acute intracranial process with chronic changes in the brain and also nonspecific changes in the right maxillary sinus and maxilla. See above discussion and correlate clinically. Other findings as above. CT CERVICAL SPINE: There is normal height and alignment of the vertebral bodies with anterior spurring diffusely throughout the cervical spine. Intervertebral disc space narrowing most marked at the C5-C6. No acute fracture is appreciated. No subluxations. Lung apices are clear. Prevertebral soft tissues are unremarkable. IMPRESSION: 1. Diffuse multilevel degenerative findings with no acute disease appreciated. Dictated on workstation # [id number] Dict: 08/30/20 1057 Trans: 08/30/20 1118 [facility] [id number] Interpreted by: KEMAR FLEMING MD Electronically signed by: Assessment/Plan Admission Diagnosis Encephalopathy Admission Status: Inpatient Order (span 2 midnights) Reason for Inpatient Admission: see below Assessment and Plan Encephalopathy Acute on CKD Stage3 Etiology unclear CT negative for acute CVA UA not consistent with UTI Will check UDS, Ammonia, and CXR Haldol prn agitation Trend Creatinine and continue IVF Hypothyroidism TSH slightly elevated but T4 normal DVT ppx: UCHE Love MD Aug 30, 2020 13:32
[2020-08-30 13:36] LABS: AMPHETAMINE SCREEN, URINE NEGATIVE (NEGATIVE); BARBITURATE SCREEN URINE NEGATIVE (NEGATIVE); BENZODIAZEPINES SCREEN URINE NEGATIVE (NEGATIVE); CANNABINOID SCREEN, URINE NEGATIVE (NEGATIVE); COCAINE SCREEN URINE NEGATIVE (NEGATIVE); METHADONE STAT NEGATIVE (NEGATIVE); METHAMPHETAMINE SCREEN URINE S NEGATIVE (NEGATIVE); OPIATE SCREEN URINE NEGATIVE (NEGATIVE); OXYCODONE STAT NEGATIVE (NEGATIVE); PROPOXYPHENE STAT NEGATIVE (NEGATIVE); TRICYCLIC ANTIDEPRESSANTS SCRE NEGATIVE (NEGATIVE)
[2020-08-30] MEDS ORDERED: LORazepam INJ 2 MG/ML (ATIVAN) VIAL ONE (13:54)
[2020-08-30] MEDS ORDERED: LORazepam INJ 2 MG/ML (ATIVAN) VIAL IVP ONE (14:15)
--- NOTE | 2020-08-30 14:24 | Diagnostic Imaging Report ---
Indication: Pneumonia Single view of the chest shows normal heart size and vascularity. The lungs are clear. There is no effusion or pneumothorax. There is no bony abnormality. IMPRESSION: Normal chest with no change from 03/22/2017. Dictated by: Dictated on workstation # [id number]
--- NOTE | 2020-08-30 14:30 | NUR ---
GLORIA WALTERS admitted to room 409-1, with an admitting diagnosis of KASSIDY, AND AMS, on 08/30/20 from EMERGENCY DEPARTMENT via C[facility], accompanied by ED STAFF. GLORIA WALTERS introduced to surroundings, call light, bed controls, phone, TV, temperature control, lights, meal times, smoking policy, visitor policy, side rail policy, bathrooms and showers. Patient Rights given to patient in the handbook. GLORIA WALTERS verbalizes understanding that [facility] is not responsible for the loss or damage to any personal effects or valuables that are kept in the patients posession during their hospitalization. GLORIA WALTERS verbalizes understanding of Interdisciplinary Patient Education. Patient and/or family were informed about the Rapid Response Team and its purpose.
[2020-08-30] MEDS ORDERED: LORazepam INJ 2 MG/ML (ATIVAN) VIAL IVP PRN (14:45)
[2020-08-30 14:46] VITALS: BP 166/76
[2020-08-30] MEDS: LACTATED RINGERS 1,000 ML IV SCH ×2 (15:15→23:20)
[2020-08-30] MEDS ORDERED: ONDANSETRON 4 MG/2 ML (SDV) Z0FRAN IV PRN (15:15)
[2020-08-30] MEDS ORDERED: HALOPERIDOL 5 MG/ML (HALDOL) VIAL IM PRN (15:15)
[2020-08-30] MEDS ORDERED: DOCU100T2 PO (15:40)
[2020-08-30] MEDS ORDERED: NF-VITD400 PO (15:40)
[2020-08-30] MEDS ORDERED: LEVO75TA6 PO (15:40)
[2020-08-30] MEDS ORDERED: PANT40TA2 PO (15:40)
[2020-08-30] MEDS ORDERED: CHOL500049 PO (15:40)
[2020-08-30] MEDS ORDERED: MV-M1TAB38 PO (15:41)
[2020-08-30 17:13] VITALS: BP_SYST 129; BP_SYST 208; BP_DIAS 143; BP_DIAS 64
[2020-08-30] MEDS ORDERED: hydrALAZINE (APESOLINE) 20 MG/ML VIAL IV PRN (17:45)
[2020-08-30] MEDS ORDERED: hydrALAZINE (APESOLINE) 20 MG/ML VIAL ONE (17:47)
[2020-08-30 20:24] VITALS: BP 127/59
[2020-08-30 20:35] VITALS: BP 127/59
[2020-08-31] VITALS (7 sets, daily range): BP systolic 113–162; BP diastolic 61–99
[2020-08-31 06:28] LABS: BASOPHILS % (AUTO) 0 % (0-10); EOSINOPHILS # (AUTO) 0.1 10^3/uL (0.0-0.3); EOSINOPHILS % (AUTO) 1 % (0-10); HEMATOCRIT 40 % (40-54); LYMPHOCYTES # (AUTO) 2.3 10^3/uL (1.0-4.0); LYMPHOCYTES % (AUTO) 24 % (12-44); MEAN CORPUSCULAR HEMOGLOBIN 33 pg (25-34); MEAN CORPUSCULAR HGB CONC 32 g/dL (32-36); MEAN CORPUSCULAR VOLUME 103 fL (80-99); MEAN PLATELET VOLUME 10.1 fL (9.0-12.2); MONOCYTES # (AUTO) 0.8 10^3/uL (0.0-1.0); MONOCYTES % (AUTO) 8 % (0-12); NEUTROPHILS # (AUTO) 6.4 10^3/uL (1.8-7.8); NEUTROPHILS % (AUTO) 66 % (42-75); PLATELET COUNT 136 10^3/uL (130-400); WHITE BLOOD COUNT 9.8 10^3/uL (4.3-11.0)
[2020-08-31 06:35] LABS: CALCIUM 8.2 MG/DL (8.5-10.1)
[2020-08-31 06:39] LABS: CREATININE SERUM 1.65 MG/DL (0.60-1.30)
[2020-08-31] MEDS: LACTATED RINGERS 1,000 ML IV SCH ×2 (07:29→16:19)
[2020-08-31] MEDS: ENOXAPARIN 40 MG/0.4 ML (LOVENOX) SYR SQ SCH (08:13)
--- NOTE | 2020-08-31 09:26 | NUR ---
NOTIFIED DR. UPTON PATIENTS DAUGHTER ROBERT WOULD LIKE PHONED AND UPDATED. DR UPTON INFORMED WOULD WHEN SHE GETS TO THAT PATIENT.
--- NOTE | 2020-08-31 12:35 | Progress Note ---
Subjective Subjective/Events-last exam No complaints of pain. Incontinent of bowel and bladder. Sleeping. Objective Exam Last Set of Vital Signs Vital Signs Date Time Temp Pulse Resp B/P (MAP) Pulse Ox O2 Delivery O2 Flow Rate FiO2 08/31/20 08:00 36.4 89 16 162/89 (113) 94 Room Air Capillary Refill : Less Than 3 Seconds I&O Intake and Output 08/31/20 00:00 Intake Total 600 ml Balance 600 ml Intake Oral 100 ml IV Total 500 ml # Voids 5 Daily Weight Change Unsure/Unresponsive No General: Alert, Oriented X3, Cooperative HEENT: Atraumatic Lungs: Clear to Auscultation Heart: Regular Rate Abdomen: Soft Extremities: No Edema Skin: No Rashes Psych/Mental Status: Other (alert and oriented to month, place, person; he does tell me it's 2001.) Results/Procedures Lab Laboratory Tests 08/30/20 14:40: Ammonia 25, Procalcitonin 0.08 08/31/20 05:57: White Blood Count 9.8, Red Blood Count 3.93L, Hemoglobin 13.0L, Hematocrit 40, Mean Corpuscular Volume 103H, Mean Corpuscular Hemoglobin 33, Mean Corpuscular Hemoglobin Concent 32, Red Cell Distribution Width 13.3, Platelet Count 136, Mean Platelet Volume 10.1, Immature Granulocyte % (Auto) 0, Neutrophils (%) (Auto) 66, Lymphocytes (%) (Auto) 24, Monocytes (%) (Auto) 8, Eosinophils (%) (Auto) 1, Basophils (%) (Auto) 0, Neutrophils # (Auto) 6.4, Lymphocytes # (Auto) 2.3, Monocytes # (Auto) 0.8, Eosinophils # (Auto) 0.1, Basophils # (Auto) 0.0, Immature Granulocyte # (Auto) 0.0, Sodium Level 139, Potassium Level 4.0, Chloride Level 106, Carbon Dioxide Level 22, Anion Gap 11, Blood Urea Nitrogen 21H, Creatinine 1.65H, Estimat Glomerular Filtration Rate 40, BUN/Creatinine Ratio 13, Glucose Level 95, Calcium Level 8.2L Assessment/Plan Assessment/Plan Admission Status: Observation (1) KASSIDY (acute kidney injury) Assessment & Plan: Improving with fluids. Continue IVF. (2) AMS (altered mental status) Assessment & Plan: Encephalopathy Acute on CKD Stage3 Etiology unclear CT negative for acute CVA UA not consistent with UTI UDS, Ammonia, and CXR negative for cause. Haldol prn agitation Creatinine improving and continue IVF Consult PT to see his abilities to go back to assisted living. I spoke to daughter and re-assured her that father was improving mental status herbert. He was able to tell me about his dog Nugget and tell me who the president of the [employer] was. Hypothyroidism TSH slightly elevated but T4 normal DVT ppx: Lovenox Qualifiers: Qualified Codes: R41.82 - Altered mental status, unspecified Clinical Quality Measures DVT/VTE Risk/Contraindication: Risk Factor Score Per Nursin RFS Level Per Nursing on Admit: 4+=Very High NEO UPTON MD Aug 31, 2020 12:35
[2020-09-01] MEDS: LACTATED RINGERS 1,000 ML IV SCH ×2 (00:32→08:06)
[2020-09-01 04:55] VITALS: BP 151/87
[2020-09-01 06:13] LABS: BASOPHILS % (AUTO) 1 % (0-10); EOSINOPHILS # (AUTO) 0.2 10^3/uL (0.0-0.3); EOSINOPHILS % (AUTO) 3 % (0-10); HEMATOCRIT 38 % (40-54); HEMOGLOBIN 12.1 g/dL (13.3-17.7); LYMPHOCYTES # (AUTO) 1.7 10^3/uL (1.0-4.0); LYMPHOCYTES % (AUTO) 23 % (12-44); MEAN CORPUSCULAR HEMOGLOBIN 32 pg (25-34); MEAN CORPUSCULAR HGB CONC 32 g/dL (32-36); MEAN CORPUSCULAR VOLUME 102 fL (80-99); MEAN PLATELET VOLUME 10.3 fL (9.0-12.2); MONOCYTES # (AUTO) 0.6 10^3/uL (0.0-1.0); MONOCYTES % (AUTO) 9 % (0-12); NEUTROPHILS # (AUTO) 4.9 10^3/uL (1.8-7.8); NEUTROPHILS % (AUTO) 65 % (42-75); PLATELET COUNT 136 10^3/uL (130-400); WHITE BLOOD COUNT 7.5 10^3/uL (4.3-11.0)
[2020-09-01 06:26] LABS: POTASSIUM 3.9 MMOL/L (3.6-5.0)
[2020-09-01 06:31] LABS: CREATININE SERUM 1.6 MG/DL (0.60-1.30)
[2020-09-01 08:00] VITALS: BP 155/93
[2020-09-01] MEDS: ENOXAPARIN 40 MG/0.4 ML (LOVENOX) SYR SQ SCH (08:06)
[2020-09-01] MEDS ORDERED: MV-M1TAB38 PO (09:27)
[2020-09-01] MEDS ORDERED: CHOL10002 PO (09:27)
[2020-09-01] MEDS ORDERED: LEVO75CA5 PO (09:27)
[2020-09-01] MEDS ORDERED: DOCU100T2 PO (09:27)
[2020-09-01] MEDS ORDERED: PANT40TA52 PO (09:27)
--- NOTE | 2020-09-01 09:30 | NUR ---
I WENT THROUGH THE PATIENT'S MED LIST FROM [facility], AND WENT THROUGH THE EXTERNAL MED HISTORY TO COMPLETE THIS MED REC. OTC: VITAMIN D DOCUSATE SODIUM OCUVITE EYE
--- NOTE | 2020-09-01 11:34 | Discharge Summary ---
Discharge Summary Reconcile Patient Problems Problems Reviewed?: Yes Instructions for Patient [email or web address], Assessment/Instructions Take medications as prescribed. Follow up with your PCP. Return with worsening symptoms or if you feel like you are getting worse. Physician to follow Patient: Joe Discharge Diet for Home: No Restrictions Hospital Course Date of Admission: Aug 30, 2020 at 13:18 Admission Diagnosis : Altered mental status Family Physician/Provider: Monalisa Diaz MD Date of Discharge: 09/01/20 Discharge Diagnosis: acute kidney injury superimposed on chronic kidney disease Hospital Course: John Aguilar is an 85-year-old male who presented with altered mental status and was admitted with acute kidney injury superimposed on chronic kidney disease. His initial workup for his altered mental status was unrevealing. His toxicology screen was negative. His CT head was unrevealing for any acute abnormalities. He had no electrolyte abnormalities. He was found to have an acute kidney injury superimposed on chronic kidney disease. He was treated with IV fluids and his kidney function improved. His course was complicated by debility and he was set up with home health care for ongoing therapy needs. He should follow-up with his primary care physician. Labs and Pending Lab Test: Laboratory Tests 09/01/20 05:34: White Blood Count 7.5, Red Blood Count 3.77L, Hemoglobin 12.1L, Hematocrit 38L, Mean Corpuscular Volume 102H, Mean Corpuscular Hemoglobin 32, Mean Corpuscular Hemoglobin Concent 32, Red Cell Distribution Width 13.2, Platelet Count 136, Mean Platelet Volume 10.3, Immature Granulocyte % (Auto) 0, Neutrophils (%) (Auto) 65, Lymphocytes (%) (Auto) 23, Monocytes (%) (Auto) 9, Eosinophils (%) (Auto) 3, Basophils (%) (Auto) 1, Neutrophils # (Auto) 4.9, Lymphocytes # (Auto) 1.7, Monocytes # (Auto) 0.6, Eosinophils # (Auto) 0.2, Basophils # (Auto) 0.0, Immature Granulocyte # (Auto) 0.0, Sodium Level 141, Potassium Level 3.9, Chloride Level 109H, Carbon Dioxide Level 20L, Anion Gap 12, Blood Urea Nitrogen 22H, Creatinine 1.60H, Estimat Glomerular Filtration Rate 41, BUN/Creatinine Ratio 14, Glucose Level 107H, Calcium Level 8.0L Home [facility] Active Reported Vitamin D3 (Cholecalciferol (Vitamin D3)) 25 Mcg Tablet 25 Mcg PO DAILY Ocuvite Eye + Multi Tablet (Mv-Mn/FA/Vit K/Lycop/Lut/Zeaxa) 1 Each Tablet 1 Each PO DAILY Levothyroxine (Levothyroxine Sodium) 75 Mcg Capsule 75 Mcg PO DAILY Docusate Sodium 100 Mg Tablet 100 Mg PO BID Pantoprazole Sodium 40 Mg Tablet.dr 40 Mg PO DAILY Allopurinol 300 Mg Tablet 150 Mg PO DAILY TAKES 1/2 (300MG) TABLET Patient Allergies: Coded Allergies: No Known Drug Allergies (Unverified , 07/17/18) Height (Feet): 5 Height (Inches): 7.50 Weight (Pounds): 160 Weight (Ounces): 4.0 Home Health Need/Face to Face Date of Face to Face: Sep 01, 2020 Clinical Findings: Generalized weakness and fatigue, Muscle weakness I have seen Pt [id number]: Yes Discharged To: Home Diagnosis/Conditions: Debility Problems/Diagnosis/Condition: (1) Debility Patient is Homebound due to: Marlen fall risk due to instabilty, Muscle weakness Homebound Status Due to the above stated illness, injury or surgical procedure (medical condition or diagnosis) and associated clinical findings, the patient is homebound because of his/her inability to leave home except with aid of a supportive device and/or person AND leaving the home requires a considerable and taxing effort or is medically contraindicated. Pt req the following assistanc: Aid of another person Home Health Nursing Orders Home Health Services Order: Nursing Services, Machine Maintenance Repairer-Evaluate & Treat, Physical Therapy-Evaluate & Treat Home Health Infusion Therapy Line Start Date: Aug 30, 2020 Therapy Orders Therapy Orders: OT (must have SN or PT order), Physical Therapy Therapy Specific Orders: Eval assistive deivces, Gait training, Increase strength/endurance Certify Stmt I certify that this patient is under my care and that I, a nurse practitioner or a physician; a business office assistant working with me, had a face to face encounter that - meets the physician face to face encounter requirements with this patient as dated. Discharge Physical Exam General: Alert, Oriented X3, Cooperative, No Acute Distress HEENT: Atraumatic, PERRLA, EOMI Lungs: Clear to Auscultation, Normal Air Movement Heart: Regular Rate, Normal S1, Normal S2, No Murmurs Abdomen: Normal Bowel Sounds, Soft, No Tenderness Extremities: No Edema, No Tenderness/Swelling Skin: No Rashes, No Significant Lesion Neuro: Normal Speech, Other (motor weakness) Psych/Mental Status: Mental Status NL, Mood NL MADALYN HERMAN MD Sep 01, 2020 11:34
[2020-09-01 12:35] VITALS: BP 155/93
--- NOTE | 2020-09-01 14:06 | NUR ---
RD ASSESSMENT PMHx: CAD; hypercholesterolemia; HTN; GERD; gout; DM; hypothyroidism; CA(skin); PT INTERACTION: Pt was awake and pleasant during nutrition assessment. Pt states current appetite is lousy, and "has been for a year since I moved into that convalescent home." Note avg PO intake <25% x1d, per chart review. Pt states following a regular diet at home, and has no issues with chewing/swallowing food. Pt states recent issues with constipation and diarrhea. Note last BM was 09/01, and pt not currently on bowel regimen per chart review. Pt states recent wt loss, but unsure of amount/timeframe. Note unable to determine recent wt hx, per chart review. Pt states unsure of current level of DM management, but feels he is doing okay. Note unable to determine recent HbA1c, per chart review. ABNORMAL NUTRITION-RELATED LAB VALUES LOW: Ca 8.0; HIGH: Cl 109; BUN 22; cr 1.60; glu 107; Est. kcal needs: 2372-6064 kcal | 20-25 kcal/kg Est. Pro needs: 64-80 g Pro | 0.8-1.0 g Pro/kg PES STATEMENT: Inadequate oral intake (NI-2.1) related to loss of appetite, constipation, and diarrhea, as evidenced by pt interview, and avg PO intake <25% x1d. INTERVENTION: Continue with current diet order of Regular diet. Pt may benefit from consistent CHO restriction if blood glucose levels become elevated. Add Glucerna (vary) to meals TID, for increased kcal intake. Provides 220 kcal and 10 g Pro per serving. Offered diet education on DM management, but pt declined at this time. Will attempt to offer again prior to discharge. Will continue to follow and reassess as pt needs, intake, and status change. Conrad Elizabeth, MS RD LD [phone] cell
--- NOTE | 2020-09-01 15:02 | NUR ---
Arrangements completed for pt discharge back to [facility] where he resides. Dr. Ortiz ordered home Health Care which was arranged with [facility] care which was pt. chika. All discharge and physician orders were faxed to [facility] for their follow-up.
--- NOTE | 2020-09-03 12:21 | Physician Query Clarification ---
PQ-Uncertain Diagnosis Admission/Discharge Admission Date: Aug 30, 2020 at 13:18 Discharge Date: Sep 01, 2020 at 12:35 Dr. Herman, The medical record reflects the following clinical scenario: History/Risk Factors: Acute renal Failure, HTN w/ CKD 3, DM, CAD Clinical Findings: AMS Treatment: IVF Question: Is encephalopathy a clinically valid diagnosis? encephalopathy was documented in the H&P with no further documentation in the medical record. Please document a response in Progress Note or Discharge Summary. 1. Yes, clinically valid, condition resolved. 2. No, condition ruled out. 3. Other, with explanation of clinical findings. 4. Undetermined, no explanation for clinical findings. PHYSICIAN RESPONSE Diagnosis clinically valid: Yes, Conditon resolved Please remember a lack of response to the above will prompt a phone page by CDI/Coding staff. In responding to this query, please exercise your independent professional judgment. The purpose of this communication is to more accurately reflect the complexity of your patients condition. The fact that a question is asked does not imply that any particular answer is desired or expected. Thank you for your timely response to this clarification. Requestors name: Maggy THIS PHYSICIAN QUERY FORM IS A PERMANENT PART OF THE MEDICAL RECORD MAGGY BRENNAN Sep 03, 2020 12:21 MADALYN HERMAN MD Sep 03, 2020 18:18
== END 2020-09-01 12:35 | disposition home health service (06) | DRG 683 ==
LOC: EDUNIT# 10:16 → ER 10:17 → 4TH 13:18
PROVIDERS: ADMIT Family Medicine; ATTEND Family Medicine
DX: N17.9 Acute kidney failure, unspecified (principal); G93.40 Encephalopathy, unspecified; I12.9 Hypertensive chronic kidney disease with stage 1 through stage 4 chronic kidney disease, or unspecified chronic kidney disease; E11.22 Type 2 diabetes mellitus with diabetic chronic kidney disease; N18.30 Chronic kidney disease, stage 3 unspecified; I25.10 Atherosclerotic heart disease of native coronary artery without angina pectoris; E78.00 Pure hypercholesterolemia, unspecified; K21.9 Gastro-esophageal reflux disease without esophagitis; E03.9 Hypothyroidism, unspecified; F32.9 Major depressive disorder, single episode, unspecified; Z87.891 Personal history of nicotine dependence; Z95.5 Presence of coronary angioplasty implant and graft
CPT/HCPCS: 36415; 70450; 71045; 72125; 80048; 80053; 80306; 81000; 82140; 82962; 83735; 84145; 84439; 84443; 85025; 86141; 96361; 96372; 96374

== ENCOUNTER → 2020-10-06 | Outpatient (CLI) | payer MEDICARE, MEDICAID ==
[~2020-10-06] MED LIST changes: +CHOL10002 PO; +CHOL500049 PO; +DOCU100T2 PO; +LEVO75CA5 PO; +LEVO75TA6 PO; +MV-M1TAB38 PO; +NF-VITD400 PO; +PANT40TA2 PO; +PANT40TA52 PO
--- NOTE | 2020-10-06 12:00 | Diagnostic Imaging Report ---
Clinical indication: Patient with vision loss of right eye off-and-on. Comparison: None Exam: Real-time carotid Doppler duplex imaging is performed bilaterally. Peak systolic velocity, ICA/CCA peak systolic ratio, spectral analysis, and vascular morphology are studied. Findings: ARTERY VELOCITY Right Left CCA 0.55 m/s 0.63 m/s ICA 1.72 m/s 1.21 m/s ECA 0.98 m/s 0.68 m/s ICA/CCA 3.1 1.9 VERT.ART Antegrade Antegrade There is atherosclerotic disease involving bilateral carotid arteries which is most pronounced involving the mid cervical right ICA region. There is elevated velocity of 1.72 m/s involving the mid cervical right ICA with associated elevated ICA/CCA peak systolic velocity ratio of 3.1. Impression: 1: There is atherosclerotic disease and roughly 50-69% stenosis involving the mid cervical right ICA. 2: The remainder of the bilateral carotid arteries show no grayscale or Doppler evidence of significant vascular stenosis. Dictated by: Dictated on workstation # [id number]
== END ==
LOC: RAD 09:03
PROVIDERS: ATTEND Physician Assistant
DX: H54.61 Unqualified visual loss, right eye, normal vision left eye (principal); I65.23 Occlusion and stenosis of bilateral carotid arteries
CPT/HCPCS: 93880

== ENCOUNTER 2020-11-23 09:23 | Emergency (ER) | payer MEDICARE, MEDICAID ==
[~2020-11-23] VITALS: Ht 170 cm; Wt 75.7 kg
--- NOTE | 2020-11-23 09:37 | ED Syncope ---
General Chief Complaint: Dizziness/Syncope Stated Complaint: DIZZY Source of Information: Patient Exam Limitations: No Limitations History of Present Illness Date Seen by Provider: Nov 23, 2020 Time Seen by Provider: 09:20 Initial Comments Patient presents ER by EMS from assisted living with chief complaint of staff found him with his head down on the breakfast table. He has no recollection of what happened but was awake, alert oriented with no postictal phase by the time EMS arrived. Staff relates that he was passed out unresponsive and drooling. No unilateral weakness, numbness, facial droop or slurred speech was noted at any time. EMS assisted him to stand and his sitting blood pressure was 120 systolic however when he stood his blood pressure dropped to 80 systolic and he had a heart rate rise from 80s to 110 upon standing. He has been told by staff there that he does not drink enough so he recently started drinking an extra glass of water with every meal 3 times a day. He is not on any medications for blood pressure. No history of cholesterol heart attack stroke seizures or d iabetes. He quit smoking 25+ years ago. He does have hypothyroidism and takes docusate for chronic constipation. Patient was seen by Dr. Cole in 2013 and recommended for outpatient nuclear stress test through the [place] tire trimmer hand at that time. The patient has been seen twice in the last 2 years for similar episodes of syncope. Both times no neurologic deficits were found and no diagnosis of stroke was made. Because of his chronic kidney injury and usually presenting with an acute kidney injury and dehydration they did not do CT angiogram. No MRA was found. It appears they pursued the syncopal episodes inpatient and facilitated follow-up outpatient. Allergies and Home Medications Allergies Coded Allergies: No Known Drug Allergies (Unverified , 07/17/18) Home Medications Allopurinol 300 Mg Tablet, 150 MG PO DAILY, (Reported) TAKES 1/2 (300MG) TABLET Cholecalciferol (Vitamin D3) 25 Mcg Tablet, 25 MCG PO DAILY, (Reported) Docusate Sodium 100 Mg Tablet, 100 MG PO BID, (Reported) Levothyroxine Sodium 75 Mcg Capsule, 75 MCG PO DAILY, (Reported) Mv-Mn/FA/Vit K/Lycop/Lut/Zeaxa 1 Each Tablet, 1 EACH PO DAILY, (Reported) Pantoprazole Sodium 40 Mg Tablet., 40 MG PO DAILY, (Reported) Patient Home Medication List Home Medication List Reviewed: Yes Review of Systems Constitutional: No chills, No diaphoresis EENTM: No ear discharge, No ear pain Respiratory: No cough, No short of breath Cardiovascular: No edema, No Hx of Intervention, No palpitations Gastrointestinal: No abdominal pain, No nausea Genitourinary: No discharge, No dysuria Musculoskeletal: No back pain, No joint pain All Other Systems Reviewed Negative Unless Noted: Yes Past Glykxqs-Ehzxsd-Bljlxg Hx Patient Social History Alcohol Use: Rarely Uses Smoking Status: Former Smoker Type Used: Cigarettes Former Smoker, Quit: Aug 04, 1991 2nd Hand Smoke Exposure: No Recent Hopitalizations: No Immunizations Up To Date Tetanus Booster (TDap): Unknown PED Vaccines UTD: No Date of Influenza Vaccine: Jun 26, 2018 Seasonal Allergies Seasonal Allergies: No Past Medical History Surgeries: Yes (aortic aneurysm repair in ABDIAZIZ, biliary stent) Abdominal, Coronary Stent, Gallbladder, Renal Respiratory: No Currently Using CPAP: No Currently Using BIPAP: No Cardiac: Yes Coronary Artery Disease, High Cholesterol, Hypertension Neurological: Yes (pt stated had a stroke 15 years ago but has not been diagnosed) Reproductive Disorders: No Sexually Transmitted Disease: No HIV/AIDS: No Genitourinary: Yes Prostate Problems, Kidney Stones Gastrointestinal: Yes (HX OF GALLSTONES, ERCP) Gastroesophageal Reflux, Chronic Constipation, Ulcer, Gall Bladder Disease Musculoskeletal: No Arthritis, Chronic Back Pain, Gout Endocrine: Yes Diabetes, Insulin dep, Hypothyroidsim HEENT: Yes Cataract, Glaucoma Loss of Vision: Bilateral Hearing Impairment: Denies 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 No Pertinent Family Hx Physical Exam Vital Signs Vital Signs - First Documented 11/23/20 09:28 Temp 35.8 Pulse 80 Resp 18 B/P (MAP) 174/98 (123) Pulse Ox 99 Capillary Refill : Height, Weight, BMI Height: 5'7.50" Weight: 160lbs. 4.0oz. 72.063096pv; 27.47 BMI Method:Stated General Appearance: No Apparent Distress, WD/WN HEENT: PERRL/EOMI, TMs Normal (Negative for costa sign); No Moist Mucous Membranes; Other (Atraumatic head) Neck: Full Range of Motion, Normal Inspection, Non Tender, Supple Cardiovascular: Regular Rate, Rhythm, No Edema, Normal Peripheral Pulses Respiratory: Lungs Clear, Normal Breath Sounds, No Accessory Muscle Use, No Respiratory Distress Gastrointestinal: Normal Bowel Sounds, Non Tender, Soft Neurologic/Psychiatric: Alert, Oriented x3, No Motor/Sensory Deficits, Normal Mood/Affect, medication aid II-XII Norm as Tested Cranial Nerves: Normal Hearing, Normal Speech, PERRL Coordination/Gait: Normal Finger to Nose Motor/Sensory: No Motor Deficit, No Sensory Deficit, No Pronator Drift Skin: Normal Color, Warm/Dry Progress/Results/Core Measures Results/Orders Lab Results Laboratory Tests Test 11/23/20 09:25 11/23/20 09:27 11/23/20 09:55 Range/Units White Blood Count 8.7 4.3-11.0 10^3/uL Red Blood Count 4.18 L 4.30-5.52 10^6/uL Hemoglobin 13.7 13.3-17.7 g/dL Hematocrit 42 40-54 % Mean Corpuscular Volume 101 H 80-99 fL Mean Corpuscular Hemoglobin 33 25-34 pg Mean Corpuscular Hemoglobin Concent 32 32-36 g/dL Red Cell Distribution Width 13.4 10.0-14.5 % Platelet Count 179 130-400 10^3/uL Mean Platelet Volume 10.1 9.0-12.2 fL Immature Granulocyte % (Auto) 0 % Neutrophils (%) (Auto) 47 42-75 % Lymphocytes (%) (Auto) 42 12-44 % Monocytes (%) (Auto) 8 0-12 % Eosinophils (%) (Auto) 2 0-10 % Basophils (%) (Auto) 0 0-10 % Neutrophils # (Auto) 4.1 1.8-7.8 10^3/uL Lymphocytes # (Auto) 3.7 1.0-4.0 10^3/uL Monocytes # (Auto) 0.7 0.0-1.0 10^3/uL Eosinophils # (Auto) 0.2 0.0-0.3 10^3/uL Basophils # (Auto) 0.0 0.0-0.1 10^3/uL Immature Granulocyte # (Auto) 0.0 0.0-0.1 10^3/uL Prothrombin Time 13.8 12.2-14.7 SEC INR Comment 1.0 0.8-1.4 Activated Partial Thromboplast Time 29 24-35 SEC Sodium Level 141 135-145 MMOL/L Potassium Level 4.1 3.6-5.0 MMOL/L Chloride Level 106 98-107 MMOL/L Carbon Dioxide Level 24 21-32 MMOL/L Anion Gap 11 5-14 MMOL/L Blood Urea Nitrogen 22 H 7-18 MG/DL Creatinine 1.85 H 0.60-1.30 MG/DL Estimat Glomerular Filtration Rate 35 BUN/Creatinine Ratio 12 Glucose Level 138 H 70-105 MG/DL Calcium Level 9.1 8.5-10.1 MG/DL Corrected Calcium 9.4 8.5-10.1 MG/DL Magnesium Level 2.0 1.6-2.4 MG/DL Total Bilirubin 0.6 0.1-1.0 MG/DL Aspartate Amino Transf (AST/SGOT) 20 5-34 U/L Alanine Aminotransferase (ALT/SGPT) 18 0-55 U/L Alkaline Phosphatase 178 H 40-136 U/L Troponin I < 0.028 <0.028 NG/ML C-Reactive Protein High Sensitivity 1.45 H 0.00-0.50 MG/DL B-Type Natriuretic Peptide 95.8 <100.0 PG/ML Total Protein 6.9 6.4-8.2 GM/DL Albumin 3.6 3.2-4.5 GM/DL Glucometer 129 H 70-110 MG/DL Urine Color YELLOW Urine Clarity CLEAR Urine pH 6.0 5-9 Urine Specific [place] 1.015 L 1.016-1.022 Urine Protein NEGATIVE NEGATIVE Urine Glucose (UA) NEGATIVE NEGATIVE Urine Ketones NEGATIVE NEGATIVE Urine Nitrite NEGATIVE NEGATIVE Urine Bilirubin NEGATIVE NEGATIVE Urine Urobilinogen 0.2 < = 1.0 MG/DL Urine Leukocyte Esterase NEGATIVE NEGATIVE Urine RBC (Auto) NEGATIVE NEGATIVE Urine RBC NONE /HPF Urine WBC NONE /HPF Urine Crystals NONE /LPF Urine Bacteria TRACE /HPF Urine Casts NONE /LPF Urine Mucus NEGATIVE /LPF Urine Culture Indicated NO My Orders Orders - HARJINDER MONTERROSO Cbc With Automated Diff (11/23/20 09:30) Comprehensive Metabolic Panel (11/23/20 09:30) Hs C Reactive Protein (2/28/21 09:30) Ua Culture If Indicated (11/23/2030) Ekg Tracing (11/23/20) Continuous Ekg Monitoring (11/23/20) Troponin I (11/23/2030) BNP (11/23/20:30) Chest 1 View, Ap/Pa Only (11/23/20) Protime With Inr (11/23/20) Partial Thromboplastin Time (11/23/20:30) Magnesium (11/23/20:30) Ct Head Wo (11/23/20) Vital Signs/I&O 11/23/20 Temp 35.8 Pulse 80 Resp 18 B/P (MAP) 174/98 (123) Pulse Ox 99 Progress Progress Note #1: Time: :35 Progress Note NIH is 0 points. He certainly has orthostasis based on EMS report. Blood sugar is normal 129. Plan to give him a liter of fluids and reassess his orthostatics. He does appear to be mildly dry but not otherwise significantly dehydrated clinically. We will get a CT of his head and do a syncope work-up. Because of his age, the abruptness of his syncope and his first-degree AV block and prolonged QTC it may be advisable he do an observation stay on telemetry with consult cardiology. Progress Note #2: Time: 10:02 Progress Note Elevated BUN and creatinine suggestive of dehydration. Baseline runs around 1.4 creatinine today is 1.5. Progress Note #3: Time: 10:18 Progress Note After the patient completed his first liter of fluids we repeated a set of orthostatic vital signs which were normal. Discussed the case with inpatient team and they do not feel there is any need for further observation. Because of his syncope however it would be reasonable for him to have a follow-up with cardiology. If he does not have a tire trimmer hand we will refer him to Dr. Ellis, cardiology. Initial ECG Impression Date: Nov 23, 2020 Initial ECG Impression Time: 09:30 Initial ECG Rate: 80 Initial ECG Rhythm: Normal Sinus Initial ECG Intervals: SC (224) Initial ECG Intervals QTC 503 ms Initial ECG Impression: Nonspecific Changes, 1st Degree AV Block Initial ECG Comparisson: Changed Comment First-degree AV block, sinus rhythm no clinically relevant ST elevation or depression. New first-degree AV block. Diagnostic Imaging Diagonstic Imaging: Xray Plain Films/CT/US/NM/MRI: chest Comments NAME: [facility] REC#: [id number] PT STATUS: REG ER : 1935 PHYSICIAN: HARJINDER MONTERROSO MD ADMIT DATE: 11/23/20/ER Draft Date of Exam:11/23/20 CHEST 1 VIEW, AP/PA ONLY EXAMINATION: Chest 1 view HISTORY: Syncopal episode. Dizziness. COMPARISON: 08/30/2020. FINDINGS: The lung volumes are normal. No focal consolidation is seen. No large pleural effusion or pneumothorax is seen. The cardiomediastinal silhouette is normal in size and contour. No acute osseous abnormality is seen. IMPRESSION: 1. No acute pleuroparenchymal process. Dictated on workstation # [id number] Dict: 11/23/20 0955 Trans: 11/23/20 1004 [facility] [id number] Interpreted by: CB SOUSA DO Electronically signed by: Reviewed: Reviewed by [place] Diagonstic Imaging: CT (No IV contrast) Plain Films/CT/US/NM/MRI: head Comments NAME: GL[facility]IA [facility] REC#: [id number] PT STATUS: REG ER : 1935 PHYSICIAN: HARJINDER MONTERROSO MD ADMIT DATE: 11/23/20/ER Draft Date of Exam:11/23/20 CT HEAD WO PROCEDURE: CT head without contrast. TECHNIQUE: Multiple contiguous axial images were obtained through the brain without the use of intravenous contrast. Auto Exposure Controls were utilized during the CT exam to meet ALARA standards for radiation dose reduction. INDICATION: Altered mental status with syncope and dizziness. COMPARISON: 08/30/2020. DISCUSSION: Diffuse brain volume loss is stable, likely age related. White matter hypoattenuation is nonspecific though not greater than expected for age-related chronic small vessel ischemic disease. Chronic-appearing lacunar infarcts within the bilateral basal ganglia are stable. No acute intracranial hemorrhage, mass, midline shift, hydrocephalus. Complete opacification of the right maxillary sinus is stable. New mucosal thickening within the right frontal sinus and ethmoid air cells. Mastoid air cells are well-aerated. Orbits are symmetrical. Calvarium is intact. IMPRESSION: 1. Stable senescent changes as described. No acute intracranial abnormality identified. 2. Right-sided sinusitis. Dictated on workstation # [id number] Dict: 11/23/20 0954 Trans: 11/23/2059 [facility] [id number] Interpreted by: MARLENE MANDEL MD Electronically signed by: Reviewed: Reviewed by Me Departure Impression Primary Impression: Syncope Qualified Codes: R55 - Syncope and collapse Disposition: HOME, SELF-CARE Condition: Improved Departure-Patient Inst. Decision time for Depature: 10:19 Referrals: ANDREA AGUILERA MD (PCP) Primary Care Physician JOE ELLIS MD Patient Instructions: Syncope (Fainting) (DC), Orthostatic Hypotension (DC) Add. Discharge Instructions: Increase your fluid intake. Follow-up with primary care in the next 2 to 4 weeks. Call your tire trimmer hand or alternatively Dr. Ellis, cardiology and request follow-up within the next 1 to 2 weeks to discuss orthostatic syncope. Return to the ER for worsening symptoms. All discharge instructions reviewed with patient and/or family. Voiced understanding. Copy Copies To 1: JOE ELLIS MD; ANDREA AGUILERA MD, TITUS J Nov 23, 2020 09:37
[2020-11-23 09:38] LABS: BASOPHILS % (AUTO) 0 % (0-10); EOSINOPHILS # (AUTO) 0.2 10^3/uL (0.0-0.3); EOSINOPHILS % (AUTO) 2 % (0-10); HEMATOCRIT 42 % (40-54); HEMOGLOBIN 13.7 g/dL (13.3-17.7); LYMPHOCYTES # (AUTO) 3.7 10^3/uL (1.0-4.0); LYMPHOCYTES % (AUTO) 42 % (12-44); MEAN CORPUSCULAR HEMOGLOBIN 33 pg (25-34); MEAN CORPUSCULAR HGB CONC 32 g/dL (32-36); MEAN CORPUSCULAR VOLUME 101 fL (80-99); MEAN PLATELET VOLUME 10.1 fL (9.0-12.2); MONOCYTES # (AUTO) 0.7 10^3/uL (0.0-1.0); MONOCYTES % (AUTO) 8 % (0-12); NEUTROPHILS # (AUTO) 4.1 10^3/uL (1.8-7.8); NEUTROPHILS % (AUTO) 47 % (42-75); PLATELET COUNT 179 10^3/uL (130-400); WHITE BLOOD COUNT 8.7 10^3/uL (4.3-11.0)
[2020-11-23 09:49] LABS: PROTHROMBIN TIME PATIENT 13.8 SEC (12.2-14.7)
[2020-11-23 09:50] LABS: ALBUMIN 3.6 GM/DL (3.2-4.5); CHLORIDE 106 MMOL/L (98-107); POTASSIUM 4.1 MMOL/L (3.6-5.0); SODIUM 141 MMOL/L (135-145)
[2020-11-23 09:52] LABS: CALCIUM 9.1 MG/DL (8.5-10.1)
[2020-11-23 09:53] LABS: GLUCOSE 138 MG/DL (70-105); TOTAL PROTEIN 6.9 GM/DL (6.4-8.2)
[2020-11-23 09:54] LABS: CARBON DIOXIDE 24 MMOL/L (21-32)
[2020-11-23 09:55] LABS: BILIRUBIN,TOTAL 0.6 MG/DL (0.1-1.0)
[2020-11-23 09:56] LABS: ALKALINE PHOSPHATASE 178 U/L (40-136)
[2020-11-23 09:57] LABS: CREATININE SERUM 1.85 MG/DL (0.60-1.30); GFR ESTIMATED 35
[2020-11-23 09:58] LABS: BUN/CREATININE RATIO 12
[2020-11-23 09:59] LABS: ALANINE AMINOTRANSFERASE 18 U/L (0-55)
--- NOTE | 2020-11-23 10:00 | Diagnostic Imaging Report ---
PROCEDURE: CT head without contrast. TECHNIQUE: Multiple contiguous axial images were obtained through the brain without the use of intravenous contrast. Auto Exposure Controls were utilized during the CT exam to meet ALARA standards for radiation dose reduction. INDICATION: Altered mental status with syncope and dizziness. COMPARISON: 08/30/2020. DISCUSSION: Diffuse brain volume loss is stable, likely age related. White matter hypoattenuation is nonspecific though not greater than expected for age-related chronic small vessel ischemic disease. Chronic-appearing lacunar infarcts within the bilateral basal ganglia are stable. No acute intracranial hemorrhage, mass, midline shift, hydrocephalus. Complete opacification of the right maxillary sinus is stable. New mucosal thickening within the right frontal sinus and ethmoid air cells. Mastoid air cells are well-aerated. Orbits are symmetrical. Calvarium is intact. IMPRESSION: 1. Stable senescent changes as described. No acute intracranial abnormality identified. 2. Right-sided sinusitis. Dictated by: Dictated on workstation # [id number]
--- NOTE | 2020-11-23 10:04 | Diagnostic Imaging Report ---
EXAMINATION: Chest 1 view HISTORY: Syncopal episode. Dizziness. COMPARISON: 08/30/2020. FINDINGS: The lung volumes are normal. No focal consolidation is seen. No large pleural effusion or pneumothorax is seen. The cardiomediastinal silhouette is normal in size and contour. No acute osseous abnormality is seen. IMPRESSION: 1. No acute pleuroparenchymal process. Dictated by: Dictated on workstation # [id number]
[2020-11-23 10:07] LABS: BILIRUBIN,URINE NEGATIVE (NEGATIVE); CLARITY,URINE CLEAR; COLOR,URINE YELLOW; GLUCOSE, URINE (UA) NEGATIVE (NEGATIVE); KETONES,URINE NEGATIVE (NEGATIVE); LEUKOCYTE ESTERASE ,URINE NEGATIVE (NEGATIVE); NITRITE,URINE NEGATIVE (NEGATIVE); PROTEIN,URINE NEGATIVE (NEGATIVE)
[2020-11-23 10:15] LABS: BACTERIA,URINE TRACE /HPF
[2020-11-23 10:18] VITALS: BP_SYST 141; BP_SYST 148; BP_DIAS 80; BP_DIAS 81; BP_DIAS 83
[2020-11-23 10:29] VITALS: BP 148/81
== END 2020-11-23 10:29 | disposition home or self-care (01) ==
LOC: EDUNIT# 09:23 → ER 09:24
DX: R55 Syncope and collapse (principal); I10 Essential (primary) hypertension; E11.9 Type 2 diabetes mellitus without complications; E03.9 Hypothyroidism, unspecified; K21.9 Gastro-esophageal reflux disease without esophagitis; K59.09 Other constipation; Z87.891 Personal history of nicotine dependence; Z79.890 Hormone replacement therapy; Z85.828 Personal history of other malignant neoplasm of skin; Z95.5 Presence of coronary angioplasty implant and graft
CPT/HCPCS: 36415; 70450; 71045; 80053; 81000; 82962; 83735; 83880; 84484; 85025; 85610; 85730; 86141; 93005

== ENCOUNTER → 2021-02-25 | Outpatient (CLI) | payer MEDICARE, MEDICAID ==
[~2021-02-25] MED LIST changes: +CATHETER FLUSH 10 ML SYR IV PRN; +CHOL-34 PO; -CHOL10002 PO; -DOCU-238 PO; +DOCU-241 PO; +REGADENOSON 0.4 MG/5 ML SYR (LEXISCAN) IV ONE
[2021-02-25 13:32] VITALS: BP 213/105
--- NOTE | 2021-02-25 16:50 | Cardiology Stress Test Report ---
Stress Test Report Date of Procedure/Referring: Date of Procedure: Feb 25, 2021 PCP Joe Ellis MD Admitting Physician Destin García MD Indications: HTN Baseline Heart Rate: 87 Baseline Blood Pressure: Blood Pressure Systolic: 213 Blood Pressure Diastolic: 105 Baseline Vitals Vital Signs Date Time Temp Pulse Resp B/P (MAP) Pulse Ox O2 Delivery O2 Flow Rate FiO2 02/25/21 13:32 87 213/105 (141) 98 Baseline EKG: Baseline EKG: Sinus rhythm, first-degree AV block, frequent atrial premature contractions Summary After explaining the procedure to the patient, he signed a consent and then brought to the stress nuclear laboratory. Patient received 0.4 mg Lexiscan for stress test, ECG, heart rate and blood pressure were monitored continuously. Resting and stress dose of radio tracer were injected, imaging was acquired and reviewed in short axis, horizontal long axis and vertical long axis views. TID: 0.97 SSS: 4 SDS: 4 EF: 77 1. Patient tolerated Lexiscan well 2. Baseline sinus rhythm with frequent atrial premature contractions 3. No significant ischemia or infarction on SPECT images 4. Normal left ventricular size, EF 77% JOE ELLIS MD Feb 25, 2021 16:50
== END ==
LOC: CARD 10:24
PROVIDERS: ATTEND Internal Medicine Cardiovascular Disease
DX: I10 Essential (primary) hypertension (principal); I35.1 Nonrheumatic aortic (valve) insufficiency
CPT/HCPCS: 78452; 93017; 93306

== ENCOUNTER 2021-04-01 00:52 | Emergency (ER) | payer MEDICARE, MEDICAID ==
[~2021-04-01] VITALS: Ht 172.7 cm; Wt 75.0 kg
[~2021-04-01 00:52] MED LIST changes: -CATHETER FLUSH 10 ML SYR IV PRN; -DOCU-241 PO; +DOCU-26 PO; -REGADENOSON 0.4 MG/5 ML SYR (LEXISCAN) IV ONE
--- NOTE | 2021-04-01 01:52 | ED Fall/Injury ---
General Chief Complaint: Trauma-Non Activation Stated Complaint: FALL Nursing Triage Note: pt arrival to ER via [facility] with for fall. Pt is without complaint. Staff at [facility] wanted him checked out because he didn't remember falling. Pt has no obvious signs of trauma or injury. Pt denies pain. Pt is alert and oriented. Source: patient Exam Limitations: no limitations History of Present Illness Date Seen by Provider: Apr 01, 2021 Time Seen by Provider: 00:58 Initial Comments Here by EMS from [facility] where patient was found after unwitnessed fall. Patient does not remember falling. He was found on the floor. No obvious injury. Patient did walk to the cot per EMS. Does state his head may hurt a little bit. No obvious bleeding. Sent here for further evaluation. Does have dementia. Location Injury Occurred: [facility] Occurred: just prior to arrival Severity: mild Injuries/Pain Location: head Context: unknown Loss of Consciousness: unsure Associated Symptoms (Fall): No Abdominal Pain, No Chest Pain; Confusion (Chronic), Headache; No Muscle Spasms, No Nausea/Vomiting, No Neck Pain, No Shortness of Air, No Slurred Speech Allergies and Home Medications Allergies Coded Allergies: No Known Drug Allergies (Unverified , 07/17/18) Home Medications Allopurinol 300 Mg Tablet, 150 MG PO DAILY, (Reported) TAKES 1/2 (300MG) TABLET Cholecalciferol (Vitamin D3) 25 Mcg Tablet, 25 MCG PO DAILY, (Reported) Docusate Sodium 100 Mg Tablet, 100 MG PO BID, (Reported) Levothyroxine Sodium 75 Mcg Capsule, 75 MCG PO DAILY, (Reported) Mv-Mn/FA/Vit K/Lycop/Lut/Zeaxa 1 Each Tablet, 1 EACH PO DAILY, (Reported) Pantoprazole Sodium 40 Mg Tablet.dr, 40 MG PO DAILY, (Reported) Patient Home Medication List Home Medication List Reviewed: Yes Review of Systems Review of Systems Constitutional: see HPI; No chills, No fever Eyes: No Symptoms Reported Ears, Nose, Mouth, Throat: no symptoms reported Respiratory: No cough, No short of breath Cardiovascular: No chest pain Gastrointestinal: No abdominal pain, No nausea, No vomiting Musculoskeletal: No back pain, No muscle pain, No neck pain Skin: change in color, lesions Psychiatric/Neurological: Headache; Denies Weakness All Other Systems Reviewed Negative Unless Noted: Yes Past Xdknkhl-Jgctip-Nmnvuq Hx Patient Social History Tobacco Use?: No Use of E-Cig and/or Vaping dev: No Substance use?: No Alcohol Use?: No Pt feels they are or have been: No Immunizations Up To Date Tetanus Booster (TDap): Unknown PED Vaccines UTD: No Seasonal Allergies Seasonal Allergies: No Past Medical History Surgeries: Yes (aortic aneurysm repair in ABDIAZIZ, biliary stent) Abdominal, Coronary Stent, Gallbladder, Renal Respiratory: No Currently Using CPAP: No Currently Using BIPAP: No Cardiac: Yes Coronary Artery Disease, High Cholesterol, Hypertension Neurological: Yes (pt stated had a stroke 15 years ago but has not been diagnosed) Reproductive Disorders: No Sexually Transmitted Disease: No HIV/AIDS: No Genitourinary: Yes Prostate Problems, Kidney Stones Gastrointestinal: Yes (HX OF GALLSTONES, ERCP) Gastroesophageal Reflux, Chronic Constipation, Ulcer, Gall Bladder Disease Musculoskeletal: No Arthritis, Chronic Back Pain, Gout Endocrine: Yes Diabetes, Insulin dep, Hypothyroidsim HEENT: Yes Cataract, Glaucoma Loss of Vision: Bilateral Hearing Impairment: Denies 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 No Pertinent Family Hx Physical Exam Vital Signs Vital Signs - First Documented 04/01/21 00:52 Temp 36.2 Pulse 89 Resp 20 B/P (MAP) 166/109 (128) Pulse Ox 99 O2 Delivery Room Air Capillary Refill : Less Than 3 Seconds Height, Weight, BMI Height: 5'7.50" Weight: 160lbs. 4.0oz. 72.716683ru; 25.00 BMI Method:Stated General Appearance: WD/WN, no apparent distress HEENT: PERRL/EOMI, pharynx normal Neck: non-tender, full range of motion, supple, normal inspection Cardiovascular: regular rate, rhythm, no murmur Respiratory: lungs clear, normal breath sounds Gastrointestinal: non tender, soft Back: normal inspection, no CVA tenderness, no vertebral tenderness Extremities: normal range of motion, non-tender, no calf tenderness, pelvis stable Neurologic/Psychiatric: alert, normal mood/affect, other (Hard of hearing and somewhat confused to events but answers questions appropriately and follows commands appropriately) Skin: warm/dry, other (Skin lesion to the top of the head that may be a large mole. No obvious areas of bleeding.) José Luis Coma Score Best Eye Response: (4) Open Spontaneously Best Verbal Response: (5) Oriented Best Motor Response: (6) Obeys Commands Progress/Results/Core Measures Results/Orders My Orders Orders - ARCHIE GONZALES MD Ct Head/Cervical Spine Wo (04/01/21 01:03) Vital Signs/I&O 04/01/21 00:52 Temp 36.2 Pulse 89 Resp 20 B/P (MAP) 166/109 (128) Pulse Ox 99 O2 Delivery Room Air Blood Pressure Mean: 128 Progress Progress Note : Progress Note Seen and evaluated. CT head and neck ordered. Monitor patient. 0229: CT head and neck negative. No other acute concerns currently. Patient in no distress. Discharged back to [facility]. Discharged with instructions sent with patient. Diagnostic Imaging Diagonstic Imaging: CT Plain Films/CT/US/NM/MRI: c-spine, head Comments No acute hemorrhage, hydrocephalus or mass-effect. No acute fracture or subluxation of the C-spine. Reviewed: Reviewed Night [facility] Study Departure Impression Primary Impression: Minor head injury Qualified Codes: S09.90XA - Unspecified injury of head, initial encounter Additional Impression: Fall Qualified Codes: W19.XXXA - Unspecified fall, initial encounter Disposition: HOME, SELF-CARE Condition: Stable Departure-Patient Inst. Decision time for Depature: 02:31 Referrals: ANDREA AGUILERA MD (PCP/Family) Primary Care Physician Patient Instructions: Minor Head Injury (DC) Add. Discharge Instructions: All discharge instructions reviewed with patient and/or family. Voiced understanding. Continue home medications as previously prescribed. No acute injuries noted on CT scan of head or neck. Follow-up with your doctor in a few days for recheck as needed. Return for worse pain, fever, vomiting, weakness, breathing problems or other concerns as needed. ARCHIE GONZALES MD Apr 01, 2021 01:52
[2021-04-01 03:10] VITALS: BP 173/87
--- NOTE | 2021-04-01 08:23 | Diagnostic Imaging Report ---
PROCEDURE: CT head and CT cervical spine without contrast. TECHNIQUE: Multiple contiguous axial images were obtained through the brain and cervical spine without the use of intravenous contrast. Sagittal and coronal reformations through the cervical spine were then performed. Auto Exposure Controls were utilized during the CT exam to meet ALARA standards for radiation dose reduction. INDICATION: Trauma. Correlation is made with prior CT from 08/30/2020. CT HEAD: There appears to be some soft tissue swelling in left frontal and left parieto-occipital scalp. Ventricles and sulci are consistent with the patient's age. No sulcal effacement is seen. There is no midline shift. No acute intra-axial or extra-axial hemorrhage is detected. There appears to be an old lacunar infarct in the left basal ganglia. Right maxillary sinus is opacified. There is opacification of the right-sided ethmoid air cells. IMPRESSION: 1. Senescent changes. There is soft tissue swelling in the left frontal and left parietal scalp. No acute intracranial process is detected. 2. Chronic opacification of the right maxillary sinus and right-sided ethmoid air cells. Dictated by: Dictated on workstation # [id number]
== END 2021-04-01 03:05 | disposition home or self-care (01) ==
LOC: EDUNIT# 00:52 → ER 00:54
DX: S09.90XA Unspecified injury of head, initial encounter (principal); I10 Essential (primary) hypertension; M10.9 Gout, unspecified; E03.9 Hypothyroidism, unspecified; K21.9 Gastro-esophageal reflux disease without esophagitis; E11.9 Type 2 diabetes mellitus without complications; Z79.890 Hormone replacement therapy; Z79.899 Other long term (current) drug therapy; Z79.4 Long term (current) use of insulin; W19.XXXA Unspecified fall, initial encounter
CPT/HCPCS: 70450; 72125

== ENCOUNTER 2021-08-07 05:33 | Outpatient (CLI) | payer MEDICARE, MEDICAID ==
[~2021-08-07] VITALS: Ht 170.2 cm; Wt 73.0 kg
== END 2021-08-07 13:05 | disposition home or self-care (01) ==
LOC: PREOP 05:33
PROVIDERS: ATTEND Surgery
DX: Z01.818 Encounter for other preprocedural examination (principal)

== ENCOUNTER 2021-08-13 11:42 | Day surgery (SDC) | payer MEDICARE, MEDICAID ==
[2021-08-13] VITALS (11 sets, daily range): BP systolic 136–204; BP diastolic 53–103
[~2021-08-13] VITALS: Ht 170 cm; Wt 73.0 kg
[2021-08-13] MEDS: LACTATED RINGERS 1,000 ML IV PRN ×2 (12:21→16:11)
[2021-08-13] MEDS ORDERED: ceFAZolin 2 GM IV Premixed 50 ML ONE (12:22)
[2021-08-13] MEDS ORDERED: ceFAZolin 2 GM IV Premixed 50 ML IV ONE (12:30)
--- NOTE | 2021-08-13 13:14 | Progress Note-Pre Operative ---
Pre-Operative Progress Note H&P Reviewed The H&P was reviewed, patient examined and no changes noted. Date Seen by Provider: Aug 13, 2021 Time Seen by Provider: 13:00 Date H&P Reviewed: Aug 13, 2021 Time H&P Reviewed: 13:00 Pre-Operative Diagnosis: sx large scalp lesion x2 NASH CHA MD Aug 13, 2021 13:14
[2021-08-13] MEDS ORDERED: ACETAMINOPHEN 325 MG TABLET PO PRN (13:15)
[2021-08-13] MEDS ORDERED: ONDANSETRON 4 MG/2 ML (SDV) Z0FRAN IVP PRN ×2 (13:15→16:45)
[2021-08-13] MEDS ORDERED: HYDROcodone/APAP 5 MG/325 MG (LORTAB) TAB PO ONE (13:15)
[2021-08-13] MEDS ORDERED: morphine INJ 10 MG/ML 1ML (SYR OR VIAL) IVP PRN ×2 (13:15)
[2021-08-13] MEDS ORDERED: ACHD5005 PO (13:16)
--- NOTE | 2021-08-13 13:16 | Discharge Inst-Surgical ---
D/C Lap Instructions-STARLA New, Converted, or Re-Newed RX: RX on Chart Follow Up Appt in 2 weeks Activity as tolerated No driving for 24 hours No driving while on pain medications Incentive Spirometry use every 2 hours while awake Regular Diet Symptoms to Report: Fever over 101 degree F, Nausea/Vomiting Infection Signs and Symptoms to report: Increased redness, Foul odor of wound, Increased drainage Bathing instructions: May shower Operative Area Clean/Dry; Keep incision clean/dry If any problems/questions: Contact your physician or go to Emergency Room NASH CHA MD Aug 13, 2021 13:16
[2021-08-13] MEDS ORDERED: LIDOCAINE/EPI 1%-1:100,000 (XYLOCAINE) 20ML ONE (14:33)
[2021-08-13] MEDS ORDERED: fentaNYL INJ 100 MCG/2 ML AMP ONE (14:54)
[2021-08-13] MEDS ORDERED: proPOfol 200 MG/20 ML (DIPRIVAN) VIAL IV ONE (15:19)
[2021-08-13] MEDS ORDERED: ROCURONIUM 10 MG/ML 5 ML SYRINGE IV ONE (15:19)
[2021-08-13] MEDS ORDERED: meTOprolol 5 MG/5 ML (LOPRESSOR) VIAL ONE (16:04)
--- NOTE | 2021-08-13 16:12 | Progress Note-Post Operative ---
Post-Operative Progess Note Surgeon (s)/Bottom Buffer (s) Surgeon NASH CHA MD Bottom Buffer: santino figueroa APRN Pre-Operative Diagnosis sx large scalp lesion x2 Post-Operative Diagnosis anterior scalp lesion(5x4cm), posterior scalp lesion(6x5cm). Procedure & Operative Findings Date of Procedure 08/13/21 Procedure Performed/Findings excision full thickness anterior scalp lesion(5x4cm), posterior scalp lesion(6x5cm) with full thickness skin graft taken from left lateral neck. Anesthesia Type get Estimated Blood Loss Estimated blood loss (mL): minimal Specimens/Packing Specimens Removed anterior and posterior skin lesions NASH CHA MD Aug 13, 2021 16:12
[2021-08-13] MEDS ORDERED: SEVOFLURANE (ULTANE) 15 ML INHAL SOLN ONE (16:18)
[2021-08-13] MEDS ORDERED: morphine INJ 10 MG/ML 1ML (SYR OR VIAL) ONE (16:39)
[2021-08-13] MEDS ORDERED: morphine INJ 10 MG/ML 1ML (SYR OR VIAL) IVP ONE (16:45)
[2021-08-13] MEDS ORDERED: hydrALAZINE (APESOLINE) 20 MG/ML VIAL IV ONE (16:45)
--- NOTE | 2021-08-13 17:26 | Anesthesia-General Post-Op ---
General Patient Condition Mental Status/LOC: Same as Preop Cardiovascular: Satisfactory Nausea/Vomiting: Absent Respiratory: Satisfactory Pain: Controlled Complications: Absent Post Op Complications Complications None Follow Up Care/Instructions Patient Instructions None needed. Anesthesia/Patient Condition Patient Condition Patient is doing well, no complaints, stable vital signs, no apparent adverse anesthesia problems. No complications reported per nursing. JAC MACHADO CRNA Aug 13, 2021 17:26
--- NOTE | 2021-08-13 21:22 | OPERATIVE REPORT ---
DATE OF SERVICE: 08/13/2021 ATTENDING PRIMARY CARE PHYSICIAN: Dr. Destin García. PREOPERATIVE DIAGNOSES: Symptomatic anterior and posterior scalp lesions, which were large and craterous and bleeding. The lesion of the anterior scalp was 5 x 4 cm, posterior scalp was 6.5 cm in size. POSTOPERATIVE DIAGNOSES: Symptomatic anterior and posterior scalp lesions, which were large and craterous and bleeding. The lesion of the anterior scalp was 5 x 4 cm, posterior scalp was 6.5 cm in size. PROCEDURE: Excision full thickness anterior and posterior scalp lesion followed by full thickness skin graft taken from the left lateral neck with the dimensions of the anterior scalp lesion, 5 x 4 cm in size and the posterior scalp lesion 6 x 5 cm in size with full thickness skin graft taken from the left lateral neck. SURGEON: Nash Cha MD ADVANCED QUALITY ENGINEER: Kody Martin APRN. ANESTHESIA: General endotracheal with local. ESTIMATED BLOOD LOSS: Minimal. FINDINGS: Symptomatic anterior and posterior scalp lesions, which were large and craterous and bleeding. The lesion of the anterior scalp was 5 x 4 cm, posterior scalp was 6.5 cm in size. DISPOSITION: The patient tolerated the procedure well. INDICATIONS: The patient is an 86-year-old male who is a resident of assisted living. 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 He states that the posterior skin lesion was there; however, he fell and hit it and after this, he states that has grown significantly larger in size. This lesion was approximately 6 x 5 cm in size. DESCRIPTION OF PROCEDURE: The patient was brought to the operating room, laid supine on the table. After adequate IV pain and sedative medications and general endotracheal intubation, the scalp and neck were prepped and draped in standard surgical fashion. We first proceeded to measure out both of these scalp lesions and it was decided to take a large oval shaped graft taken from the left lateral neck. We first proceeded with excision of the anterior scalp lesion using a 15 blade in an elliptical shape, 5 x 4 cm in size. Good hemostasis was achieved using electrocautery. The posterior scalp lesion, approximately 6 x 5 cm in size was excised in a similar fashion with visualization of good hemostasis. The oval shaped lateral neck full thickness skin graft was then taken using a 15 blade. Good hemostasis was then achieved using electrocautery. The skin graft was then placed in saline. We then proceeded with complex closure using undermining the skin to create lateral flaps and then primary closure. This was done using 3-0 Prolene interrupted sutures. The skin graft was then cut in half and then concentrically grafted to the scalp edges using 3-0 Prolene interrupted sutures with visualization of good hemostasis. The lateral neck wound was then covered with an island dressing. The scalp lesions were then covered by 4 x 4 gauze followed by Kerlix wrap. The patient tolerated the procedure well. We will start IV normal pain medication as well as a clear liquid diet. Once he is tolerating clears, has good pain control with oral pain medications, ambulating well, we will discharge him home. He will be instructed to keep the areas clean and dry for the next two weeks. Job ID: [id number] DocumentID: [id number] Dictated Date: 08/13/2021 16:20:30 Paunch Trimmer Date: 08/13/2021 21:22:06 Dictated By: NASH CHA MD
== END 2021-08-13 18:10 ==
LOC: SDC 11:42
PROVIDERS: ATTEND Surgery
DX: C44.42 Squamous cell carcinoma of skin of scalp and neck (principal); I25.10 Atherosclerotic heart disease of native coronary artery without angina pectoris; E03.9 Hypothyroidism, unspecified; K21.9 Gastro-esophageal reflux disease without esophagitis; M10.9 Gout, unspecified; E55.9 Vitamin D deficiency, unspecified; F32.A Depression, unspecified; Z79.890 Hormone replacement therapy; Z79.899 Other long term (current) drug therapy; Z95.1 Presence of aortocoronary bypass graft; Z87.891 Personal history of nicotine dependence; Z90.89 Acquired absence of other organs; Z90.49 Acquired absence of other specified parts of digestive tract; Z80.3 Family history of malignant neoplasm of breast
CPT/HCPCS: 87081; 88305

== ENCOUNTER 2021-09-01 10:02 | Emergency (ER) | payer MEDICARE, MEDICAID ==
[~2021-09-01] VITALS: Ht 172.7 cm; Wt 77.1 kg
[~2021-09-01 10:02] MED LIST changes: +ACHD5005 PO
--- NOTE | 2021-09-01 10:52 | ED Head Injury ---
General Chief Complaint: Trauma-Non Activation Stated Complaint: FELL, HIT HEAD,LAC Source: patient Exam Limitations: no limitations History of Present Illness Date Seen by Provider: Sep 01, 2021 Time Seen by Provider: 10:51 Initial Comments To ER with reports of a fall from the assisted. He had excision of scalp lesion x2 on 08/14/[address] Alanis. He fell today causing a dehiscence of the wound. These skin lesions were excised and covered with skin graft. Occurred: just prior to arrival Severity: moderate Loss of Consciousness: no loss of consciousness Associated Systoms: Denies Symptoms Allergies and Home Medications Allergies Coded Allergies: No Known Drug Allergies (Unverified , 08/13/21) Patient Home Medication List Home Medication List Reviewed: Yes Allopurinol (Allopurinol) 300 Mg Tablet, 150 MG PO DAILY, (Reported) Entered as Reported by: GABO MCGHEE on 07/17/18 1408 Cholecalciferol (Vitamin D3) (Vitamin D3) 25 Mcg Tablet, 25 MCG PO DAILY, (Reported) Entered as Reported by: PAUL HERNANDEZ on 09/01/20926 Docusate Sodium (Docusate Sodium) 100 Mg Tablet, 100 MG PO BID, (Reported) Entered as Reported by: PAUL HERNANDEZ on 09/01/20926 Hydrocodone Bit/Acetaminophen (HYDROcodone/APAP 5 MG/325 MG TAB) 1 Tab Tab, 1 TAB PO Q4H Prescribed by: NASH ALANIS on 08/13/21 1316 Levothyroxine Sodium (Levothyroxine) 75 Mcg Capsule, 75 MCG PO DAILY, (Reported) Entered as Reported by: PAUL HERNANDEZ on 09/01/20926 Mv-Mn/FA/Vit K/Lycop/Lut/Zeaxa (Ocuvite Eye + Multi Tablet) 1 Each Tablet, 1 EACH PO DAILY, (Reported) Entered as Reported by: PAUL HERNANDEZ on 09/01/20926 Pantoprazole Sodium (Pantoprazole Sodium) 40 Mg Tablet.dr, 40 MG PO DAILY, (Reported) Entered as Reported by: PAUL HERNANDEZ on 09/01/20926 Review of Systems Review of Systems Constitutional: see HPI Eyes: No Symptoms Reported Ears, Nose, Mouth, Throat: no symptoms reported Respiratory: no symptoms reported Cardiovascular: no symptoms reported Genitourinary: no symptoms reported Musculoskeletal: no symptoms reported Skin: no symptoms reported Psychiatric/Neurological: No Symptoms Reported Past Bmnwqgc-Wyioyv-Mhlovd Hx Immunizations Up To Date Tetanus Booster (TDap): Unknown PED Vaccines UTD: No First/Initial COVID19 Vaccinat: september 2020 Second COVID19 Vaccination Leroy: september 2020 Seasonal Allergies Seasonal Allergies: No Past Medical History Surgeries: Yes (aortic aneurysm repair in [place]BD[place]ZIZ, biliary stent) Abdominal, Adenoidectomy, Coronary Stent, Gallbladder, Renal, Tonsillectomy Respiratory: No Currently Using CPAP: No Currently Using BIPAP: No Cardiac: Yes Coronary Artery Disease Neurological: Yes (pt stated had a stroke 15 years ago but has not been diagnosed) Reproductive Disorders: No Sexually Transmitted Disease: No HIV/AIDS: No Genitourinary: Yes Prostate Problems, Kidney Stones Gastrointestinal: Yes (HX OF GALLSTONES, ERCP) Gastroesophageal Reflux, Chronic Constipation, Ulcer, Gall Bladder Disease Musculoskeletal: No Arthritis, Chronic Back Pain, Gout Endocrine: Yes Hypothyroidsim HEENT: Yes Cataract, Glaucoma Loss of Vision: Bilateral Hearing Impairment: Denies 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 No Pertinent Family Hx Physical Exam Vital Signs Capillary Refill : Height, Weight, BMI Height: 5'7.50" Weight: 160lbs. 4.0oz. [id number]; 25.25 BMI Method:Stated General Appearance: WD/WN, no apparent distress HEENT: PERRL/EOMI, normal ENT inspection, other (Anterior scalp wound remains with sutures in place no surrounding erythema. Necrotic overlying tissue. The posterior scalp wound has a dehiscence of sutures with oozing of blood and necrotic tissue.) Neck: non-tender, full range of motion Respiratory: no respiratory distress, no accessory muscle use Gastrointestinal: normal bowel sounds, non tender Extremities: normal range of motion, non-tender Psychiatric: alert, oriented x 3 Crainal Nerves: normal hearing, normal speech, PERRL Skin: normal color, warm/dry José Luis Coma Score Best Eye Response: (4) Open Spontaneously Best Verbal Response: (4) Confused Conversation Best Motor Response: (6) Obeys Commands [place] Total: 14 Images 1 - scalp wound dehiscence Progress/Results/Core Measures Results/Orders My Orders Orders - ANJANA OBRIEN APRN Ct Head/Cervical Spine Wo (09/01/21 10:33) Departure Communication (Admissions) I spoke with Dr. Alanis,, recommends removal of the eschar, gauze and he will be a secondary intention. We did this, this exposes the school in a small area. Impression Primary Impression: Minor head injury Additional Impression: scalp wound dehiscence Disposition: HOME, SELF-CARE Condition: Stable Departure-Patient Inst. Decision time for Depature: 10:58 Referrals: ANDREA AGUILERA MD (PCP/Family) Primary Care Physician Patient Instructions: Wound Care Add. Discharge Instructions: 1. Return to ER for any concerns 2. Call Dr. Alanis's office today to make an appointment to be seen preferably later this week for recheck. Change the gauze dressing, plain gauze wet-to-dry daily and as needed. All discharge instructions reviewed with patient and/or family. Voiced understanding. ANJANA OBRIEN APRN Sep 01, 2021 10:52
--- NOTE | 2021-09-01 11:14 | Diagnostic Imaging Report ---
PROCEDURE: CT head and CT cervical spine without contrast. TECHNIQUE: Multiple contiguous axial images were obtained through the brain and cervical spine without the use of intravenous contrast. Sagittal and coronal reformations through the cervical spine were then performed. Auto Exposure Controls were utilized during the CT exam to meet ALARA standards for radiation dose reduction. INDICATION: Fall with pain to head and neck. Comparison with 04/01/2021 FINDINGS: CT HEAD: There is diffuse cortical atrophy. There is no evidence of intracranial hemorrhage or mass effect. No evidence of hydrocephalus. There are focal areas of encephalomalacia in the right cerebellum. Dense vascular calcifications are noted. No calvarial fractures. There is laceration noted along the frontal and occipital scalp. Chronic opacification of the right maxillary sinus. Mastoid air cells are clear. IMPRESSION: No acute abnormalities demonstrated. The diffuse cortical atrophy with focal areas of encephalomalacia right cerebellum. CT CERVICAL SPINE: Sagittal and coronal reformatted images. Good alignment of the cervical spine. Body height is well-maintained. Odontoid is intact. Facets show good alignment. No spinal stenosis is seen. No fractures. Diffuse degenerative cervical disc disease with hypertrophic endplate changes and large anterior bridging osteophyte. The paraspinal soft tissues appear normal. IMPRESSION: Diffuse cervical spondylosis with no acute abnormalities. Dictated by: Dictated on workstation # [id number]
[2021-09-01 11:57] VITALS: BP 157/88
== END 2021-09-01 11:57 | disposition home or self-care (01) ==
LOC: EDUNIT# 10:02 → ER 10:04
DX: S09.90XA Unspecified injury of head, initial encounter (principal); T81.30XA Disruption of wound, unspecified, initial encounter; K21.9 Gastro-esophageal reflux disease without esophagitis; E03.9 Hypothyroidism, unspecified; G89.29 Other chronic pain; M54.9 Dorsalgia, unspecified; M10.9 Gout, unspecified; R40.2410 Glasgow coma scale score 13-15, unspecified time; Z79.890 Hormone replacement therapy; Z79.891 Long term (current) use of opiate analgesic; W19.XXXA Unspecified fall, initial encounter
CPT/HCPCS: 70450; 72125

== ENCOUNTER 2021-11-26 20:53 | Emergency (ER) | payer MEDICARE, MEDICAID ==
[~2021-11-26 20:53] MED LIST changes: +BISA-89 PO; -BISA5TAB49 PO
--- NOTE | 2021-11-26 21:47 | ED General ---
General Chief Complaint: General Problems/Pain Stated Complaint: LETHARGY Source of Information: Patient Exam Limitations: No Limitations History of Present Illness Date Seen by Provider: Nov 26, 2021 Time Seen by Provider: 21:15 Initial Comments Patient is an 86-year-old male who presents to the emergency department from a local assisted living facility for concern of decreased appetite and not acting right, excessive sleepiness. Patient is brought by EMS. He is alert to person and place. He is a little disoriented to year. He adamantly denies any complaints of headache, shortness of breath, chest pain, abdominal pain. He has no nausea or problems with bowel or bladder. He has no pain in his extremities or his back. He repeatedly states that he would like to go home and get into his own bed and go to sleep. Reportedly patient has been recently diagnosed with a urinary tract infection. He is started on Levaquin, I am uncertain as to whether or not he has had his first dose this evening. No complaints are verbalized by from the patient. His vital signs are stable. His exam is unremarkable. [facility]. Associated Systoms: Denies Symptoms Allergies and Home Medications Allergies Coded Allergies: No Known Drug Allergies (Unverified , 08/13/21) Patient Home Medication List Home Medication List Reviewed: Yes Allopurinol (Allopurinol) 300 Mg Tablet, 150 MG PO DAILY, (Reported) Entered as Reported by: GABO MCGHEE on 07/17/18 1408 Cholecalciferol (Vitamin D3) (Vitamin D3) 25 Mcg Tablet, 25 MCG PO DAILY, (Reported) Entered as Reported by: PAUL HERNANDEZ on 09/01/20926 Docusate Sodium (Docusate Sodium) 100 Mg Tablet, 100 MG PO BID, (Reported) Entered as Reported by: PAUL HERNANDEZ on 09/01/20926 Hydrocodone Bit/Acetaminophen (HYDROcodone/APAP 5 MG/325 MG TAB) 1 Tab Tab, 1 TAB PO Q4H Prescribed by: NASH CHA on 08/13/21 1316 Levothyroxine Sodium (Levothyroxine) 75 Mcg Capsule, 75 MCG PO DAILY, (Reported) Entered as Reported by: PAUL HERNANDEZ on 09/01/20926 Mv-Mn/FA/Vit K/Lycop/Lut/Zeaxa (Ocuvite Eye + Multi Tablet) 1 Each Tablet, 1 EACH PO DAILY, (Reported) Entered as Reported by: PAUL HERNANDEZ on 09/01/20926 Pantoprazole Sodium (Pantoprazole Sodium) 40 Mg Tablet.dr, 40 MG PO DAILY, (Reported) Entered as Reported by: PAUL HERNANDEZ on 09/01/20926 Review of Systems Review of Systems Constitutional: see HPI EENTM: no symptoms reported Respiratory: no symptoms reported Cardiovascular: no symptoms reported Gastrointestinal: no symptoms reported Genitourinary: no symptoms reported Musculoskeletal: no symptoms reported Psychiatric/Neurological: No Symptoms Reported All Other Systems Reviewed Negative Unless Noted: Yes Past Flzyaxt-Wtcphw-Kibdrz Hx Immunizations Up To Date Tetanus Booster (TDap): Unknown PED Vaccines UTD: No First/Initial COVID19 Vaccinat: september 2020 Second COVID19 Vaccination Leroy: september 2020 Seasonal Allergies Seasonal Allergies: No Past Medical History Surgeries: Yes (aortic aneurysm repair in [place], biliary stent) Abdominal, Adenoidectomy, Coronary Stent, Gallbladder, Renal, Tonsillectomy Respiratory: No Currently Using CPAP: No Currently Using BIPAP: No Cardiac: Yes Coronary Artery Disease Neurological: Yes (pt stated had a stroke 15 years ago but has not been diagnosed) Reproductive Disorders: No Sexually Transmitted Disease: No HIV/AIDS: No Genitourinary: Yes Prostate Problems, Kidney Stones Gastrointestinal: Yes (HX OF GALLSTONES, ERCP) Gastroesophageal Reflux, Chronic Constipation, Ulcer, Gall Bladder Disease Musculoskeletal: No Arthritis, Chronic Back Pain, Gout Endocrine: Yes Hypothyroidsim HEENT: Yes Cataract, Glaucoma Loss of Vision: Bilateral Hearing Impairment: Denies 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 No Pertinent Family Hx Physical Exam Vital Signs Vital Signs - First Documented 11/26/21 20:54 Temp 36.8 Pulse 94 Resp 16 B/P (MAP) 139/84 (102) Pulse Ox 92 O2 Delivery Room Air Capillary Refill : Height, Weight, BMI Height: 5'7.50" Weight: 160lbs. 4.0oz. 72.789577pe; 25.00 BMI Method:Stated General Appearance: No Apparent Distress, WD/WN Eyes: Bilateral Eye Normal Inspection, Bilateral Eye PERRL HEENT: Other (dry oral mucosa) Neck: Normal Inspection Respiratory: Lungs Clear, Normal Breath Sounds, No Accessory Muscle Use, No Respiratory Distress Cardiovascular: Regular Rate, Rhythm Gastrointestinal: Non Tender, Soft Extremity: Normal Capillary Refill, Normal Inspection, Normal Range of Motion, No Calf Tenderness Neurologic/Psychiatric: Alert, Oriented x3 (oriented to place, self and situation), No Motor/Sensory Deficits, Normal Mood/Affect Skin: Normal Color, Warm/Dry, Other (multiple skin lesions - one on the scalp, with crusted eschar. does not appear infected. not draining) Progress/Results/Core Measures Suspected Sepsis SIRS Temperature: Pulse: Respiratory Rate: Laboratory Tests 11/26/21 20:58: White Blood Count 19.3H Blood Pressure / Mean: Laboratory Tests 11/26/21 20:58: Creatinine 1.75H, Platelet Count 191 Results/Orders Lab Results Laboratory Tests Test 11/26/21 20:58 11/26/21 23:05 Range/Units White Blood Count 19.3 H 4.3-11.0 10^3/uL Red Blood Count 3.96 L 4.30-5.52 10^6/uL Hemoglobin 12.7 L 13.3-17.7 g/dL Hematocrit 39 L 40-54 % Mean Corpuscular Volume 99 80-99 fL Mean Corpuscular Hemoglobin 32 25-34 pg Mean Corpuscular Hemoglobin Concent 32 32-36 g/dL Red Cell Distribution Width 13.5 10.0-14.5 % Platelet Count 191 130-400 10^3/uL Mean Platelet Volume 11.5 9.0-12.2 fL Immature Granulocyte % (Auto) 1 % Neutrophils (%) (Auto) 84 H 42-75 % Lymphocytes (%) (Auto) 10 L 12-44 % Monocytes (%) (Auto) 5 0-12 % Eosinophils (%) (Auto) 0 0-10 % Basophils (%) (Auto) 0 0-10 % Neutrophils # (Auto) 16.1 H 1.8-7.8 10^3/uL Lymphocytes # (Auto) 2.0 1.0-4.0 10^3/uL Monocytes # (Auto) 1.0 0.0-1.0 10^3/uL Eosinophils # (Auto) 0.0 0.0-0.3 10^3/uL Basophils # (Auto) 0.0 0.0-0.1 10^3/uL Immature Granulocyte # (Auto) 0.1 0.0-0.1 10^3/uL Neutrophils % (Manual) 86 % Lymphocytes % (Manual) 9 % Monocytes % (Manual) 5 % Blood Morphology Comment NORMAL Sodium Level 134 L 135-145 MMOL/L Potassium Level 4.1 3.6-5.0 MMOL/L Chloride Level 103 98-107 MMOL/L Carbon Dioxide Level 20 L 21-32 MMOL/L Anion Gap 11 5-14 MMOL/L Blood Urea Nitrogen 22 H 7-18 MG/DL Creatinine 1.75 H 0.60-1.30 MG/DL Estimat Glomerular Filtration Rate 37 BUN/Creatinine Ratio 13 Glucose Level 142 H 70-105 MG/DL Calcium Level 8.9 8.5-10.1 MG/DL Urine Color YELLOW Urine Clarity CLEAR Urine pH 6.0 5-9 Urine Specific [place] 1.025 H 1.016-1.022 Urine Protein TRACE H NEGATIVE Urine Glucose (UA) NEGATIVE NEGATIVE Urine Ketones TRACE H NEGATIVE Urine Nitrite NEGATIVE NEGATIVE Urine Bilirubin NEGATIVE NEGATIVE Urine Urobilinogen 0.2 < = 1.0 MG/DL Urine Leukocyte Esterase NEGATIVE NEGATIVE Urine RBC (Auto) NEGATIVE NEGATIVE Urine RBC NONE /HPF Urine WBC NONE /HPF Urine Squamous Epithelial Cells 2-5 /HPF Urine Crystals NONE /LPF Urine Bacteria TRACE /HPF Urine Casts NONE /LPF Urine Mucus SMALL H /LPF Urine Culture Indicated NO My Orders Orders - THERESA JACOME MD Cbc With Automated Diff (11/26/21 22:26) Basic Metabolic Panel (11/26/21 22:26) Manual Differential (11/26/21 20:58) Ua Culture If Indicated (11/26/21 22:56) Chest 1 View, Ap/Pa Only (11/26/21 23:33) Vital Signs/I&O 11/26/21 11/26/21 20:54 20:54 Temp 36.8 Pulse 94 Resp 16 B/P (MAP) 139/84 (102) Pulse Ox 92 O2 Delivery Room Air Room Air Capillary Refill : Progress Note #1: Time: 21:45 Progress Note patient looks good. oriented. drinking water. VSS. no complaints whatsoever. Not lethargic - is appropriately interactive. [facility] his [facility]. Progress Note #2: Time: 22:28 Progress Note Daughter appears at bedside and had significant concerns that the patient was not being admitted because she thinks that he is "severely dehydrated". She states since he had COVID about 2 weeks ago he is just not "bounced back". She states he is not eating or drinking. She states that he was confused this aft ernoon. We did discuss the fact that he has a urinary tract infection and needs his antibiotics. They were able to get him to have some applesauce today but he vomited prior to coming up by ambulance. He continues to have no complaints at this time. He is sipping on water still. Vital signs are stable. I told the daughter that we would check some labs and finish out the liter of fluids started by EMS. Labs are pending at this time. Progress Note #3: Time: 00:40 Progress Note re-evaluated patient - sleeping soundly - no distress. Labs reviewed, has a leukocytosis. no evidence of pneumonia. Urine is clear. Chem is at his baseline. He is just getting over covid - this may explain the leukocytosis. He has no respiratory distress. Abdominal exam is benign (soft, non distended, non painful). He has had water here in the ER. no vomiting. I do not think he needs admitted at this time. Will send back to assisted living. Daughter may need to consider full jail placement. Return precautions discussed with her. I advised her to follow up with his PCP tomorrow. SHe verbalizes understanding - is appreciative of the work up this evening. I told her I would send a copy of the chart to Dr Aguilera's office. All questions are sought and answered. Departure Impression Primary Impression: Mild dehydration Additional Impression: Leukocytosis, unspecified Disposition: 01 HOME, SELF-CARE Condition: Stable Departure-Patient Inst. Decision time for Depature: 21:46 Referrals: ANDREA AGUILERA MD (PCP/Family) Primary Care Physician Patient Instructions: Dehydration, Adult ED Add. Discharge Instructions: Encourage fluids so he stays well hydrated. His urine is clear of infection here in the ER tonight, although he does have an elevated white blood cell count of uncertain significance. No evidence of pneumonia. Monitor for fever or changing symptoms. Resume prior home medications. Return for fever, worsening confusion, abnormal vital signs or other emergent, concerning symptoms. Copy Copies To 1: ANDREA AGUILERA MD, KATHRYN M MD Nov 26, 2021 21:47
[2021-11-26 22:42] LABS: CALCIUM 8.9 MG/DL (8.5-10.1); CREATININE SERUM 1.75 MG/DL (0.60-1.30); POTASSIUM 4.1 MMOL/L (3.6-5.0)
[2021-11-26 22:43] LABS: BASOPHILS % (AUTO) 0 % (0-10); EOSINOPHILS % (AUTO) 0 % (0-10); HEMATOCRIT 39 % (40-54); HEMOGLOBIN 12.7 g/dL (13.3-17.7); LYMPHOCYTES % (AUTO) 10 % (12-44); MEAN CORPUSCULAR HEMOGLOBIN 32 pg (25-34); MEAN CORPUSCULAR HGB CONC 32 g/dL (32-36); MEAN CORPUSCULAR VOLUME 99 fL (80-99); MEAN PLATELET VOLUME 11.5 fL (9.0-12.2); MONOCYTES % (AUTO) 5 % (0-12); NEUTROPHILS # (AUTO) 16.1 10^3/uL (1.8-7.8); NEUTROPHILS % (AUTO) 84 % (42-75); PLATELET COUNT 191 10^3/uL (130-400); WHITE BLOOD COUNT 19.3 10^3/uL (4.3-11.0)
[2021-11-26 23:10] LABS: LYMPHOCYTES % (MANUAL) 9 %; MONOCYTES % (MANUAL) 5 %; NEUTROPHILS % (MANUAL) 86 %; RBC MORPH NORMAL
[2021-11-26 23:10] LABS: BILIRUBIN,URINE NEGATIVE (NEGATIVE); CLARITY,URINE CLEAR; COLOR,URINE YELLOW; GLUCOSE, URINE (UA) NEGATIVE (NEGATIVE); KETONES,URINE TRACE (NEGATIVE); LEUKOCYTE ESTERASE ,URINE NEGATIVE (NEGATIVE); NITRITE,URINE NEGATIVE (NEGATIVE); PROTEIN,URINE TRACE (NEGATIVE)
[2021-11-26 23:24] LABS: BACTERIA,URINE TRACE /HPF
[2021-11-27 00:58] VITALS: BP 126/73
--- NOTE | 2021-11-27 06:11 | Diagnostic Imaging Report ---
EXAMINATION: Chest 1 view HISTORY: Leukocytosis. Cough. COMPARISON: 11/23/2020. FINDINGS: Patchy opacities are seen in the left lung base. No pleural effusion or pneumothorax. Stable cardiac silhouette. There is calcified aortic atherosclerotic plaque. No acute osseous abnormalities. IMPRESSION: 1. Patchy left basilar opacities which may represent atelectasis or infection. Dictated by: Dictated on workstation # [id number]
== END 2021-11-27 00:58 | disposition home or self-care (01) ==
LOC: EDUNIT# 20:53 → ER 20:55
DX: E86.0 Dehydration (principal); D72.829 Elevated white blood cell count, unspecified; N39.0 Urinary tract infection, site not specified
CPT/HCPCS: 36415; 71045; 80048; 81000; 85007; 85027

== ENCOUNTER 2021-12-02 08:24 | Emergency (ER) | payer MEDICARE, MEDICAID ==
[~2021-12-02] VITALS: Ht 182 cm; Wt 72.0 kg
--- NOTE | 2021-12-02 08:40 | ED General ---
General Stated Complaint: DECREASED LOC Source of Information: EMS Exam Limitations: Other (mental status) (LISS GAXIOLA MED STUDENT) History of Present Illness Date Seen by Provider: Dec 02, 2021 Time Seen by Provider: 08:30 Initial Comments Patient is an 86 year old male who presents to the ED via [facility] with an episode of unresponsiveness this am. EMS reports patient walked to dining room and sat down to eat breakfast this am and immediately became unresponsive. Patient didn't become responsive until he was places on a gurney in trendelenburg position. Initial blood pressure obtained systolic was in 70's. Blood glucose was 127 per EMS. EMS reports patient has not been drinking and eating well for the last few days. Patient is uncooperative and altered limiting history and exam currently. Was seen last in ED. Timing/Duration: 1 Hour Severity: Mild Modifying Factors: improves with Other (unable to obtain due to condition) Associated Systoms: Other (unable to obtain due to condition) (LISS GAXIOLA STUDENT) Allergies and Home Medications Allergies Coded Allergies: No Known Drug Allergies (Unverified , 08/13/21) Patient Home Medication List Home Medication List Reviewed: Yes (THERESA JACOME MD) Allopurinol (Allopurinol) 300 Mg Tablet, 150 MG PO DAILY, (Reported) Entered as Reported by: GABO MCGHEE on 07/17/18 1408 Cholecalciferol (Vitamin D3) (Vitamin D3) 25 Mcg Tablet, 25 MCG PO DAILY, (Reported) Entered as Reported by: PAUL HERNANDEZ on 09/01/20926 Docusate Sodium (Docusate Sodium) 100 Mg Tablet, 100 MG PO BID, (Reported) Entered as Reported by: PAUL HERNANDEZ on 09/01/20926 Hydrocodone Bit/Acetaminophen (HYDROcodone/APAP 5 MG/325 MG TAB) 1 Tab Tab, 1 TAB PO Q4H Prescribed by: NASH CHA on 08/13/21 1316 Levothyroxine Sodium (Levothyroxine) 75 Mcg Capsule, 75 MCG PO DAILY, (Reported) Entered as Reported by: PAUL HERNANDEZ on 09/01/20926 Mv-Mn/FA/Vit K/Lycop/Lut/Zeaxa (Ocuvite Eye + Multi Tablet) 1 Each Tablet, 1 EACH PO DAILY, (Reported) Entered as Reported by: PAUL HERNANDEZ on 09/01/20926 Pantoprazole Sodium (Pantoprazole Sodium) 40 Mg Tablet.dr, 40 MG PO DAILY, (Reported) Entered as Reported by: PAUL HERNANDEZ on 09/01/20926 Review of Systems Review of Systems Constitutional: other (unable to assess due to condition) EENTM: other (unable to assess) Respiratory: other (unable to assess) Cardiovascular: other (unable to assess) Gastrointestinal: other (unable to assess) Genitourinary: other (unable to assess) Musculoskeletal: other (unable to assess) Skin: other (unable to assess) Psychiatric/Neurological: Other (unable to assess) Hematologic/Lymphatic: Other (unable to assess) (LISS GAXIOLA STUDENT) All Other Systems Reviewed Negative Unless Noted: No (LISS GAXIOLA STUDENT) Past Nwrdqte-Ykrbat-Lhnoxd Hx Immunizations Up To Date Tetanus Booster (TDap): Unknown PED Vaccines UTD: No First/Initial COVID19 Vaccinat: september 2020 Second COVID19 Vaccination Leroy: september 2020 Third COVID19 Vaccination Date: june 2021 (LISS GAXIOLA STUDENT) Seasonal Allergies Seasonal Allergies: No (LISS GAXIOLA STUDENT) Past Medical History Surgeries: Yes (aortic aneurysm repair in ABDIAZIZ, biliary stent) Abdominal, Adenoidectomy, Coronary Stent, Gallbladder, Renal, Tonsillectomy Respiratory: No Currently Using CPAP: No Currently Using BIPAP: No Cardiac: Yes Coronary Artery Disease Neurological: Yes (pt stated had a stroke 15 years ago but has not been diagnosed) Reproductive Disorders: No Sexually Transmitted Disease: No HIV/AIDS: No Genitourinary: Yes Prostate Problems, Kidney Stones Gastrointestinal: Yes (HX OF GALLSTONES, ERCP) Gastroesophageal Reflux, Chronic Constipation, Ulcer, Gall Bladder Disease Musculoskeletal: No Arthritis, Chronic Back Pain, Gout Endocrine: Yes Hypothyroidsim HEENT: Yes Cataract, Glaucoma Loss of Vision: Bilateral Hearing Impairment: Denies 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 No Pertinent Family Hx (LISS GAXIOLA) Physical Exam Vital Signs Vital Signs - First Documented 12/02/21 08:27 Temp 36.5 Pulse 90 Resp 18 B/P (MAP) 149/94 (112) Pulse Ox 93 O2 Delivery Room Air (THERESA JACOME MD) Vital Signs Capillary Refill : (LISS GAXIOLA STUDENT) Height, Weight, BMI Height: 5'7.50" Weight: 160lbs. 4.0oz. 72.152945mj; 25.00 BMI Method:Stated General Appearance: No Apparent Distress, Chronically ill Eyes: Bilateral Eye PERRL, Bilateral Eye EOMI HEENT: PERRL/EOMI, Other (dry mucous membranes) Neck: Normal Inspection, Non Tender Respiratory: Lungs Clear, No Accessory Muscle Use Cardiovascular: No Edema, Normal Peripheral Pulses, Irregularly Irregular Gastrointestinal: Normal Bowel Sounds, Non Tender, Soft Rectal: Deferred Back: Normal Inspection, No Vertebral Tenderness Extremity: Non Tender, No Calf Tenderness, No Pedal Edema Neurologic/Psychiatric: Disoriented (Disoriented to person, place, and time), Other (Patient altered and not answering questions or following commands appropriately. ) Skin: Warm/Dry, Other (Ulceration over superior aspect of cranium with out drainage or redness. Multiple scattered abrasions, scabs, and dry skin over arms, legs, and trunk) Lymphatic: No Adenopathy (Head and neck) (LISS GAXIOLA) Focused Exam Lactate Level 12/02/21 09:20: Lactic Acid Level 1.52 (THERESA JACOME MD) Lactic Acid Level Laboratory Tests Test 12/02/21 09:20 Lactic Acid Level 1.52 MMOL/L (0.50-2.00) (THERESA JACOME MD) Progress/Results/Core Measures Suspected Sepsis SIRS Temperature: Pulse: Respiratory Rate: Blood Pressure / Mean: (LISS GAXIOLA STUDENT) SIRS Laboratory Tests 12/02/21 09:20: White Blood Count 7.2 12/02/21 09:20: Lactic Acid Level 1.52 Laboratory Tests 12/02/21 09:20: Creatinine 1.54H, INR Comment 1.1, Platelet Count 147, Total Bilirubin 0.5 (THERESA JACOME MD) Results/Orders Lab Results Laboratory Tests Test 12/02/21 09:20 Range/Units White Blood Count 7.2 4.3-11.0 10^3/uL Red Blood Count 4.05 L 4.30-5.52 10^6/uL Hemoglobin 13.1 L 13.3-17.7 g/dL Hematocrit 41 40-54 % Mean Corpuscular Volume 100 H 80-99 fL Mean Corpuscular Hemoglobin 32 25-34 pg Mean Corpuscular Hemoglobin Concent 32 32-36 g/dL Red Cell Distribution Width 13.9 10.0-14.5 % Platelet Count 147 130-400 10^3/uL Mean Platelet Volume 10.5 9.0-12.2 fL Immature Granulocyte % (Auto) 1 % Neutrophils (%) (Auto) 66 42-75 % Lymphocytes (%) (Auto) 20 12-44 % Monocytes (%) (Auto) 9 0-12 % Eosinophils (%) (Auto) 4 0-10 % Basophils (%) (Auto) 1 0-10 % Neutrophils # (Auto) 4.8 1.8-7.8 10^3/uL Lymphocytes # (Auto) 1.4 1.0-4.0 10^3/uL Monocytes # (Auto) 0.6 0.0-1.0 10^3/uL Eosinophils # (Auto) 0.3 0.0-0.3 10^3/uL Basophils # (Auto) 0.0 0.0-0.1 10^3/uL Immature Granulocyte # (Auto) 0.1 0.0-0.1 10^3/uL Prothrombin Time 15.0 H 12.2-14.7 SEC INR Comment 1.1 0.8-1.4 Activated Partial Thromboplast Time 50 H 24-35 SEC Sodium Level 139 135-145 MMOL/L Potassium Level 4.1 3.6-5.0 MMOL/L Chloride Level 106 98-107 MMOL/L Carbon Dioxide Level 21 21-32 MMOL/L Anion Gap 12 5-14 MMOL/L Blood Urea Nitrogen 20 H 7-18 MG/DL Creatinine 1.54 H 0.60-1.30 MG/DL Estimat Glomerular Filtration Rate 43 BUN/Creatinine Ratio 13 Glucose Level 103 70-105 MG/DL Lactic Acid Level 1.52 0.50-2.00 MMOL/L Calcium Level 9.4 8.5-10.1 MG/DL Corrected Calcium 10.3 H 8.5-10.1 MG/DL Total Bilirubin 0.5 0.1-1.0 MG/DL Aspartate Amino Transf (AST/SGOT) 22 5-34 U/L Alanine Aminotransferase (ALT/SGPT) 14 0-55 U/L Alkaline Phosphatase 159 H 40-136 U/L C-Reactive Protein High Sensitivity 4.63 H 0.00-0.50 MG/DL Total Protein 6.1 L 6.4-8.2 GM/DL Albumin 2.9 L 3.2-4.5 GM/DL Thyroid Stimulating Hormone (TSH) 2.47 0.35-4.94 UIU/ML (THERESA JACOME MD) My Orders Orders - THERESA JACOME MD Cbc With Automated Diff (12/02/21 08:35) Comprehensive Metabolic Panel (12/02/21 08:35) Blood Culture (12/02/21 08:35) Sputum Culture (12/02/21 08:35) Protime With Inr (12/02/21 08:35) Partial Thromboplastin Time (12/02/21 08:35) Chest 1 View, Ap/Pa Only (12/02/21 08:35) Ed Iv/Invasive Line Start (12/02/21 08:35) Ed Iv/Invasive Line Start (12/02/21 08:35) Vital Signs Adult Sepsis Patie Q15M (12/02/21 08:35) O2 (12/02/21 08:35) Remove Rings In Anticipation O (12/02/21 08:35) Lactic Acid Analyzer (12/02/21 08:35) Ekg Tracing (12/02/21 08:35) Hs C Reactive Protein (12/02/21 08:35) Ns Iv 1000 Ml (Sodium Chloride 0.9%) (12/02/21 08:45) Thyroid Stimulating Hormone (12/02/21 08:50) Ns Iv 500 Ml (Sodium Chloride 0.9%) (12/02/21 11:00) Acetaminophen Tablet (Tylenol Tablet) (12/02/21 11:30) (THERESA JACOME MD) Medications Given in ED (THERESA JACOME MD) Vital Signs/I&O 12/02/21 12/02/21 12/02/21 12/02/21 08:27 09:52 10:56 12:22 Temp 36.5 Pulse 90 74 73 71 82 86 Resp 18 18 18 B/P (MAP) 149/94 (112) 169/85 154/80 (104) 135/74 167/91 (116) 131/70 (90) Pulse Ox 93 97 99 O2 Delivery Room Air Room Air (THERESA JACOME MD) Vital Signs/I&O Capillary Refill : (LISS GAXIOLA MED STUDENT) Progress Note #1: Time: 09:10 Progress Note Patient presents by EMS from a local assisted living facility with chief complaint of altered mental status. Staff walking to the dining room when he became altered. Initial blood pressures in the 50s and 70s. When he was placed in Trendelenburg pressure returned to normal and he became responsive again. Patient has recently been in the emergency department about a week ago with concern for not eating and drinking well post Covid 2 weeks at that time. At the time of that ER visit the patient had no complaints. Had general laboratory work-up done which showed a leukocytosis and no obvious source of infection, pneumonia or urinary tract infection. Daughter is not immediately available at this visit to provide further history. Patient is pleasantly confused, does not know where he is and answers "no" to every question. He does seem to be in a little bit of discomfort with palpation of any part of his body. Vital signs are stable his blood pressure is 120s systolic, he is not tachycardic with a rate in the 80s, known history of atrial fibrillation. Physical exam remarkable for healing wound to the left upper scalp. Heart rate is irregular on auscultation. Lungs are clear. Abdomen is slightly tender to palpation, nondistended with bowel sounds. No rashes are noted. Sepsis work-up. EKG shows irregular rhythm at [address] segment elevation or depression. Incomplete right bundle branch block. Patient is currently getting 1 L of normal saline infused. Progress Note #2: Time: 11:18 Progress Note Checked orthostatic on Mr Walters. BP stayed >130 systolic with laying, sitting and standing. He is complaining of pain to his left arm (area of skin cancer). No nausea. No headache. No chest pain. I spoke with his daughter at length and advised her of his lab results. No urine obtained yet. Rest of his labs look good - leukocytosis resolved. CRP is up to about 4. Elevtrolytes normal. Renal function at his baseline. Chest xray clear. No focal neurological deficits. Ordering some tylenol and another 500ml of fluids. Offered to have auto specialty services manager come down to talk to them about correction placement. She states he would not be happy with that. He has a little dog at the assisted living facility. WE discussed that it may just be his advanced age and post covid causing his symptoms of poor appetite and not drinking and less activity. I have no clinical or objective findings that would support admission at this time. Will finish off a second bolus of the 500ml and likely send back to his facility. He does remember at this time he's in the hospital and seems more alert. Progress Note #3: Time: 12:06 Progress Note finished fluids. Still no urine and he adamantly refused straight cath. UA not assessed this visit. Low blood pressure likely attributable to dehydration/volume depletion as he improved significantly with IVF here i the department. Again talked to daughter about school social worker referral and she declines. [facility] - encourage fluids/food. Daughter needs to consider possible residential placement. return precautions discussed. (THERESA JACOME MD) ECG Initial ECG Impression Date: Dec 02, 2021 Initial ECG Impression Time: 09:03 Initial ECG Rate: 82 Initial ECG Rhythm: A Fib/Flutter Initial ECG Impression: Atrial Fibrillation Comment incomplete RBBB; No st elevation or depression; PVC's noted (THERESA JACOME MD) Diagnostic Imaging Diagonstic Imaging: Xray Plain Films/CT/US/NM/MRI: chest Comments [facility], [place] NAME: GLORIA WALTERS [facility] REC#: [id number] PT STATUS: REG ER : 1935 PHYSICIAN: THERESA JACOME MD ADMIT DATE: 12/02/21/ER Draft Date of Exam:12/02/21 CHEST 1 VIEW, AP/PA ONLY INDICATION: Uresponsive episode syncope. Hypotension. COMPARISON: 11/26/2021 FINDINGS: Single frontal view of the chest demonstrates normal heart size and pulmonary vascularity. The lungs show low inspiratory volumes, but are otherwise clear. No large pleural effusion or pneumothorax is seen. The visualized osseous structures show no acute abnormalities. IMPRESSION: 1. No acute cardiopulmonary process. Dictated on workstation # [id number] Dict: 12/02/21 0959 Trans: 12/02/21 1000 CVB [id number] Interpreted by: GONZALES BALLARD MD Electronically signed by: (THERESA JACOME MD) Departure Impression Primary Impression: Syncopal episodes Qualified Codes: R55 - Syncope and collapse Additional Impression: Mild dehydration Disposition: 01 HOME, SELF-CARE Condition: Improved Departure-Patient Inst. Decision time for Depature: 12:07 (THERESA JACOME MD) Referrals: ANDREA AGUILERA MD (PCP/Family) Primary Care Physician Patient Instructions: Syncope (Fainting) Add. Discharge Instructions: The [facility] needs to try and push fluids/food/nutrition for Mr Walters. Continue routine prescribed medications. Follow up with Primary Care. Consider change to Shelter placement. Return to the ER for new, concerning or emergent complaints. Verification and Attestation of Medical Student E/M Service A medical student performed and documented this service in my presence. I reviewed and verified all information documented by the medical student and made modifications to such information, when appropriate. I personally performed the physical exam and medical decision making. Theresa Jacome, Dec 03, 2021,06:26 (THERESA JACOME MD) LISS GAXIOLA MED STUDENT Dec 02, 2021 08:40 THERESA JACOME MD Dec 02, 2021 09:14
[2021-12-02] MEDS ORDERED: NS IV 1000 ML 1,000 ML IV SCH (08:45)
[2021-12-02 09:36] LABS: BASOPHILS % (AUTO) 1 % (0-10); EOSINOPHILS # (AUTO) 0.3 10^3/uL (0.0-0.3); EOSINOPHILS % (AUTO) 4 % (0-10); HEMATOCRIT 41 % (40-54); HEMOGLOBIN 13.1 g/dL (13.3-17.7); LYMPHOCYTES # (AUTO) 1.4 10^3/uL (1.0-4.0); LYMPHOCYTES % (AUTO) 20 % (12-44); MEAN CORPUSCULAR HEMOGLOBIN 32 pg (25-34); MEAN CORPUSCULAR HGB CONC 32 g/dL (32-36); MEAN CORPUSCULAR VOLUME 100 fL (80-99); MEAN PLATELET VOLUME 10.5 fL (9.0-12.2); MONOCYTES # (AUTO) 0.6 10^3/uL (0.0-1.0); MONOCYTES % (AUTO) 9 % (0-12); NEUTROPHILS # (AUTO) 4.8 10^3/uL (1.8-7.8); NEUTROPHILS % (AUTO) 66 % (42-75); PLATELET COUNT 147 10^3/uL (130-400); WHITE BLOOD COUNT 7.2 10^3/uL (4.3-11.0)
--- NOTE | 2021-12-02 10:01 | Diagnostic Imaging Report ---
INDICATION: Uresponsive episode syncope. Hypotension. COMPARISON: 11/26/2021 FINDINGS: Single frontal view of the chest demonstrates normal heart size and pulmonary vascularity. The lungs show low inspiratory volumes, but are otherwise clear. No large pleural effusion or pneumothorax is seen. The visualized osseous structures show no acute abnormalities. IMPRESSION: 1. No acute cardiopulmonary process. Dictated by: Dictated on workstation # [id number]
[2021-12-02 10:06] LABS: ALBUMIN 2.9 GM/DL (3.2-4.5); INR 1.1 (0.8-1.4); POTASSIUM 4.1 MMOL/L (3.6-5.0)
[2021-12-02 10:07] LABS: CALCIUM 9.4 MG/DL (8.5-10.1)
[2021-12-02 10:08] LABS: TOTAL PROTEIN 6.1 GM/DL (6.4-8.2)
[2021-12-02 10:10] LABS: BILIRUBIN,TOTAL 0.5 MG/DL (0.1-1.0)
[2021-12-02 10:12] LABS: CREATININE SERUM 1.54 MG/DL (0.60-1.30)
[2021-12-02 10:56] VITALS: BP_SYST 131; BP_SYST 154; BP_SYST 167; BP_DIAS 70; BP_DIAS 80; BP_DIAS 91
[2021-12-02] MEDS ORDERED: NS IV 500 ML 500 ML IV SCH (11:00)
[2021-12-02] MEDS ORDERED: ACETAMINOPHEN 500 MG TAB (TYLENOL) PO ONE (11:30)
[2021-12-02 12:22] VITALS: BP 135/74
== END 2021-12-02 12:22 | disposition home or self-care (01) ==
LOC: EDUNIT# 08:24 → ER 08:25
DX: R55 Syncope and collapse (principal); E86.0 Dehydration
CPT/HCPCS: 36415; 71045; 80053; 83605; 84443; 85025; 85610; 85730; 86141; 87040; 93005

== ENCOUNTER 2021-12-13 08:00 | Emergency (ER) | payer MEDICARE, MEDICAID ==
[~2021-12-13] VITALS: Ht 182 cm; Wt 72.0 kg
--- NOTE | 2021-12-13 08:18 | ED Fall/Injury ---
General Stated Complaint: FALL Source: patient, EMS Exam Limitations: no limitations History of Present Illness Date Seen by Provider: Dec 13, 2021 Time Seen by Provider: 08:05 Initial Comments Patient is an 86-year-old male who presents from a local assisted living facility after a fall off the toilet this morning. Apparently the patient fell forward, possibly hit his head. No loss of consciousness reported. He has no complaints. He has had frequent falls in recent weeks. He presents with dressings and Steri-Strips to a fairly significant skin tear over the right elbow and forearm. He denies headache. No nausea vomiting. Is not short of breath. Is not having any chest pain. Is alert and knows where he is. He did arrive in a cervical collar which was removed on arrival. He does not appear altered. No distracting injuries. No intoxication observed. All other ROS reviewed and neg except as stated. Occurred: just prior to arrival Severity: mild Context: unknown Loss of Consciousness: no loss of consciousness Associated Symptoms (Fall): Denies Symptoms Allergies and Home Medications Allergies Coded Allergies: No Known Drug Allergies (Unverified , 08/13/21) Patient Home Medication List Home Medication List Reviewed: Yes Allopurinol (Allopurinol) 300 Mg Tablet, 150 MG PO DAILY, (Reported) Entered as Reported by: GABO MCGHEE on 07/17/18 1408 Cholecalciferol (Vitamin D3) (Vitamin D3) 25 Mcg Tablet, 25 MCG PO DAILY, (Reported) Entered as Reported by: PAUL HERNANDEZ on 09/01/20926 Docusate Sodium (Docusate Sodium) 100 Mg Tablet, 100 MG PO BID, (Reported) Entered as Reported by: PAUL HERNANDEZ on 09/01/20926 Hydrocodone Bit/Acetaminophen (HYDROcodone/APAP 5 MG/325 MG TAB) 1 Tab Tab, 1 TAB PO Q4H Prescribed by: NASH CHA on 08/13/21 1316 Levothyroxine Sodium (Levothyroxine) 75 Mcg Capsule, 75 MCG PO DAILY, (Reported) Entered as Reported by: PAUL HERNANDEZ on 09/01/20926 Mv-Mn/FA/Vit K/Lycop/Lut/Zeaxa (Ocuvite Eye + Multi Tablet) 1 Each Tablet, 1 EAC H PO DAILY, (Reported) Entered as Reported by: PAUL HERNANDEZ on 09/01/20926 Pantoprazole Sodium (Pantoprazole Sodium) 40 Mg Tablet.dr, 40 MG PO DAILY, (Reported) Entered as Reported by: PAUL HENRANDEZ on 09/01/20926 Review of Systems Review of Systems Constitutional: see HPI Eyes: No Symptoms Reported Ears, Nose, Mouth, Throat: no symptoms reported Respiratory: no symptoms reported Cardiovascular: no symptoms reported Gastrointestinal: no symptoms reported Genitourinary: no symptoms reported Musculoskeletal: joint pain (right elbow) Skin: other (sking tears right arm) All Other Systems Reviewed Negative Unless Noted: Yes Past Brgvqyo-Txjocl-Gfkbiv Hx Immunizations Up To Date Tetanus Booster (TDap): Unknown PED Vaccines UTD: No First/Initial COVID19 Vaccinat: ? Second COVID19 Vaccination Leroy: ? Third COVID19 Vaccination Date: june 2021 Seasonal Allergies Seasonal Allergies: No Past Medical History Surgeries: Yes (aortic aneurysm repair in ABDIAZIZ, biliary stent) Abdominal, Adenoidectomy, Coronary Stent, Gallbladder, Renal, Tonsillectomy Respiratory: No Currently Using CPAP: No Currently Using BIPAP: No Cardiac: Yes Coronary Artery Disease Neurological: Yes (pt stated had a stroke 15 years ago but has not been diagnosed) Reproductive Disorders: No Sexually Transmitted Disease: No HIV/AIDS: No Genitourinary: Yes Prostate Problems, Kidney Stones Gastrointestinal: Yes (HX OF GALLSTONES, ERCP) Gastroesophageal Reflux, Chronic Constipation, Ulcer, Gall Bladder Disease Musculoskeletal: No Arthritis, Chronic Back Pain, Gout Endocrine: Yes Hypothyroidsim HEENT: Yes Cataract, Glaucoma Loss of Vision: Bilateral Hearing Impairment: Denies 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 No Pertinent Family Hx Physical Exam Vital Signs Capillary Refill : Height, Weight, BMI Height: 5'7.50" Weight: 160lbs. 4.0oz. 72.611266ed; 21.00 BMI Method:Stated General Appearance: WD/WN, no apparent distress HEENT: PERRL/EOMI, other (right TM without hemotympanum. left difficult to visualize secondary to anatomy; no battles sign) Neck: non-tender, full range of motion, normal inspection Cardiovascular: regular rate, rhythm Respiratory: lungs clear, normal breath sounds, no respiratory distress, no accessory muscle use Gastrointestinal: non tender, soft Pelvic: other (nontender) Back: normal inspection, no vertebral tenderness Extremities: normal range of motion, other (14cm skin tear to the right elbow/forearm. Steri strips in place. Minimal active bleeding noted from superior portion of skin tear where steri strips are peeling. No surrounding erythema. No puss-like drainage, tender to touch. No elbow swelling noted - good ROM, no evidence of dislocation or fracture.) Neurologic/Psychiatric: no motor/sensory deficits, alert, normal mood/affect Skin: normal color, warm/dry, other (superficial abrasion left knee. dressed skin tear right elbow. Small skin tear noted left dorsal forearm (2cm); has a chronic poor healing left upper scalp wound with a speck of fresh blood at the medial aspect of the wound.) [place] Coma Score Best Eye Response: (4) Open Spontaneously Best Verbal Response: (5) Oriented Best Motor Response: (6) Obeys Commands Progress/Results/Core Measures Progress Progress Note : Time: 08:18 Progress Note Patient looks good. No complaints other than discomfort with manipulating the right elbow at the area of the skin tear. VSS. Alert and oriented. No clinical or objective findings to warrant imaging. He is not on blood thinners. Will send back to assisted living facility. He's drinking a cup of coffee. Pleasant and non-toxic in appearance. moving all extremities. Departure Impression Primary Impression: Fall Qualified Codes: W19.XXXA - Unspecified fall, initial encounter Additional Impressions: Debility Skin tear of right elbow without complication Qualified Codes: S51.011A - Laceration without foreign body of right elbow, initial encounter Abrasion of knee, left Qualified Codes: S80.212A - Abrasion, left knee, initial encounter Disposition: 01 HOME, SELF-CARE Condition: Stable Departure-Patient Inst. Decision time for Depature: 08:22 Referrals: ANDREA AGUILERA MD (PCP/Family) Primary Care Physician Patient Instructions: Wound Care ED Add. Discharge Instructions: The skin tear wounds need to be washed twice daily and dressed with clean, dry gauze dressings. Monitor for signs of infection, redness, swelling puss-like drainage. Follow up with Dr Aguilera. Consider Machine Operator Slitter Technician consult for possible placement in full care senior living. THERESA JACOME MD Dec 13, 2021 08:18
[2021-12-13 09:25] VITALS: BP 148/94
== END 2021-12-13 09:30 | disposition home or self-care (01) ==
LOC: EDUNIT# 08:00 → ER 08:01
DX: S51.011A Laceration without foreign body of right elbow, initial encounter (principal); S51.802A Unspecified open wound of left forearm, initial encounter; S80.212A Abrasion, left knee, initial encounter; R53.81 Other malaise; W18.11XA Fall from or off toilet without subsequent striking against object, initial encounter; Y92.129 Unspecified place in nursing home as the place of occurrence of the external cause
CPT/HCPCS: 99283

== ENCOUNTER 2022-01-07 07:37 | Emergency (ER) | payer MEDICARE, MEDICAID ==
[~2022-01-07] VITALS: Ht 175 cm; Wt 72.0 kg
--- NOTE | 2022-01-07 07:52 | ED Fall/Injury ---
General Stated Complaint: FALL Source: patient Exam Limitations: other (not oriented, dementia) (ROME RIVERA MED STUDENT) History of Present Illness Date Seen by Provider: Jan 07, 2022 Time Seen by Provider: 07:45 Initial Comments Mr. Prado is an 86yo male that presents to ED via ems from [facility] due to fall. He is only oriented to self, paperwork included does does not include medical history but suspect that he has dementia. Hx from EMS states that he was found fallen in his bathroom this morning and is suspected to have been there over night. In the ED he is denying pain anywhere and states he is feeling fine. He has a cancerous lesion on the back of his head that appears to be torn at one of the margins and there is some dried blood around the area. Not actively bleeding. No other obvious injuries are noted. Unsure of LOC with fall. He is not on a blood thinner per paperwork sent with him. He does not remember falling. ROS validity questionable due to not being oriented, but denies any positive symptoms (ROME RIVERA MED STUDENT) Initial Comments Patient's daughter arrives later to provide more history. She reports a COVID- 19 infection earlier in the year and numerous falls since then. He had 3 visits to the emergency room in November. He seems to have had declined since recovering from Covid. The support from hospice has been discussed with her in the past and she is open to employing hospice services. Patient is appropriately a DNR status at this time. He is a poor historian for me and does not readily answer questions. He does follow commands to move extremities or squeeze hands. He does open eyes to voice and does usually attempt to answer questions. He denies any pain although he seems to have pain in the left arm at the side of a large skin lesion. He has had numerous skin lesions or cancers that have been excised in the past. There are 2 large such patches on his scalp. The posterior lesion is bleeding slightly secondary to the fall. (JESSICA MEDEROS MD) Allergies and Home Medications Allergies Coded Allergies: No Known Drug Allergies (Unverified , 08/13/21) Patient Home Medication List Home Medication List Reviewed: Yes (JESSICA MEDEROS MD) Allopurinol (Allopurinol) 300 Mg Tablet, 150 MG PO DAILY, (Reported) Entered as Reported by: GABO MCGHEE on 07/17/18 1408 Cholecalciferol (Vitamin D3) (Vitamin D3) 25 Mcg Tablet, 25 MCG PO DAILY, (Reported) Entered as Reported by: PAUL HERNANDEZ on 09/01/20926 Docusate Sodium (Docusate Sodium) 100 Mg Tablet, 100 MG PO BID, (Reported) Entered as Reported by: PAUL HERNANDEZ on 09/01/20926 Hydrocodone Bit/Acetaminophen (HYDROcodone/APAP 5 MG/325 MG TAB) 1 Tab Tab, 1 TAB PO Q4H Prescribed by: NASH CHA on 08/13/21 1316 Levothyroxine Sodium (Levothyroxine) 75 Mcg Capsule, 75 MCG PO DAILY, (Reported) Entered as Reported by: PAUL HERNANDEZ on 09/01/20926 Mv-Mn/FA/Vit K/Lycop/Lut/Zeaxa (Ocuvite Eye + Multi Tablet) 1 Each Tablet, 1 EACH PO DAILY, (Reported) Entered as Reported by: PAUL HERNANDEZ on 09/01/20926 Pantoprazole Sodium (Pantoprazole Sodium) 40 Mg Tablet.dr, 40 MG PO DAILY, (Reported) Entered as Reported by: PAUL HERNANDEZ on 09/01/20926 Review of Systems Review of Systems Constitutional: No chills, No fever Eyes: Denies Pain, Denies Vision Changes Ears, Nose, Mouth, Throat: denies ear pain, denies nose pain, denies mouth pain Respiratory: No cough, No short of breath Cardiovascular: No chest pain, No palpitations Gastrointestinal: No abdominal pain, No nausea, No vomiting Genitourinary: No dysuria, No hematuria Musculoskeletal: No back pain, No joint pain, No neck pain Skin: lesions (Cancerous lesions on head, one of which on the posterior of the head appears to have bled); No rash Psychiatric/Neurological: Denies Headache, Denies Numbness (ROME RIVERA MED STUDENT) Past Lbpqwzp-Yxorsv-Opqawi Hx Patient Social History Tobacco Use?: No Use of E-Cig and/or Vaping dev: No Substance use?: No Alcohol Use?: No (JESSICA MEDEROS MD) Immunizations Up To Date Tetanus Booster (TDap): Unknown PED Vaccines UTD: No First/Initial COVID19 Vaccinat: ? Second COVID19 Vaccination Leroy: ? Third COVID19 Vaccination Date: ? (ROME RIVERA STUDENT) Seasonal Allergies Seasonal Allergies: No (ROME RIVERA) Past Medical History Surgery/Hospitalization HX: [facility] Surgeries: Yes (aortic aneurysm repair in [place], biliary stent) Abdominal, Adenoidectomy, Coronary Stent, Gallbladder, Renal, Tonsillectomy Respiratory: No Currently Using CPAP: No Currently Using BIPAP: No Cardiac: Yes Coronary Artery Disease Neurological: Yes (pt stated had a stroke 15 years ago but has not been diagnosed) Reproductive Disorders: No Sexually Transmitted Disease: No HIV/AIDS: No Genitourinary: Yes Prostate Problems, Kidney Stones Gastrointestinal: Yes (HX OF GALLSTONES, ERCP) Gastroesophageal Reflux, Chronic Constipation, Ulcer, Gall Bladder Disease Musculoskeletal: No Arthritis, Chronic Back Pain, Gout Endocrine: Yes Hypothyroidsim HEENT: Yes Cataract, Glaucoma Loss of Vision: Bilateral Hearing Impairment: Denies 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 No Pertinent Family Hx (ROME RIVERA) Physical Exam Vital Signs Vital Signs - First Documented 01/07/22 07:37 Temp 36.0 Pulse 99 Resp 18 B/P (MAP) 154/93 (113) Pulse Ox 99 O2 Delivery Room Air (JESSICA MEDEROS MD) Vital Signs Capillary Refill : (ROME RIVERA STUDENT) Height, Weight, BMI Height: 5'7.50" Weight: 160lbs. 4.0oz. [id number]; 21.00 BMI Method:Stated General Appearance: WD/WN, no apparent distress, other (frail) HEENT: PERRL/EOMI, pharynx normal Neck: non-tender, full range of motion, normal inspection Cardiovascular: normal peripheral pulses, regular rate, rhythm, no edema, no murmur Respiratory: chest non-tender, lungs clear, normal breath sounds Peripheral Pulses: 2+ Radial Pulses (R), 2+ Radial Pulses (L) Gastrointestinal: normal bowel sounds, non tender, soft Back: normal inspection, no vertebral tenderness Extremities: normal range of motion, non-tender, no pedal edema, no calf tenderness Neurologic/Psychiatric: alert, other (Only oriented to person) Skin: normal color, warm/dry, other (Cancerous lesion on posterior head has some dry blood at the margion and appears to have a mild tear) (ROME RIVERA MED STUDENT) Progress/Results/Core Measures Results/Orders Lab Results Laboratory Tests Test 01/07/22 09:15 01/07/22 11:00 Range/Units White Blood Count 12.8 H 4.3-11.0 10^3/uL Red Blood Count 4.30 4.30-5.52 10^6/uL Hemoglobin 13.9 13.3-17.7 g/dL Hematocrit 43 40-54 % Mean Corpuscular Volume 100 H 80-99 fL Mean Corpuscular Hemoglobin 32 25-34 pg Mean Corpuscular Hemoglobin Concent 32 32-36 g/dL Red Cell Distribution Width 14.6 H 10.0-14.5 % Platelet Count 264 130-400 10^3/uL Mean Platelet Volume 10.8 9.0-12.2 fL Immature Granulocyte % (Auto) 1 % Neutrophils (%) (Auto) 83 H 42-75 % Lymphocytes (%) (Auto) 9 L 12-44 % Monocytes (%) (Auto) 6 0-12 % Eosinophils (%) (Auto) 0 0-10 % Basophils (%) (Auto) 0 0-10 % Neutrophils # (Auto) 10.7 H 1.8-7.8 10^3/uL Lymphocytes # (Auto) 1.2 1.0-4.0 10^3/uL Monocytes # (Auto) 0.7 0.0-1.0 10^3/uL Eosinophils # (Auto) 0.0 0.0-0.3 10^3/uL Basophils # (Auto) 0.0 0.0-0.1 10^3/uL Immature Granulocyte # (Auto) 0.1 0.0-0.1 10^3/uL Sodium Level 138 135-145 MMOL/L Potassium Level 4.7 3.6-5.0 MMOL/L Chloride Level 102 98-107 MMOL/L Carbon Dioxide Level 20 L 21-32 MMOL/L Anion Gap 16 H 5-14 MMOL/L Blood Urea Nitrogen 24 H 7-18 MG/DL Creatinine 1.73 H 0.60-1.30 MG/DL Estimat Glomerular Filtration Rate 38 BUN/Creatinine Ratio 14 Glucose Level 155 H 70-105 MG/DL Calcium Level 9.7 8.5-10.1 MG/DL Magnesium Level 2.1 1.6-2.4 MG/DL Thyroid Stimulating Hormone (TSH) 3.03 0.35-4.94 UIU/ML Free Thyroxine 1.17 0.70-1.48 NG/DL Urine Color YELLOW Urine Clarity CLEAR Urine pH 8.0 5-9 Urine Specific [place] 1.015 L 1.016-1.022 Urine Protein TRACE H NEGATIVE Urine Glucose (UA) NEGATIVE NEGATIVE Urine Ketones TRACE H NEGATIVE Urine Nitrite NEGATIVE NEGATIVE Urine Bilirubin NEGATIVE NEGATIVE Urine Urobilinogen 1.0 < = 1.0 MG/DL Urine Leukocyte Esterase NEGATIVE NEGATIVE Urine RBC (Auto) NEGATIVE NEGATIVE Urine RBC NONE /HPF Urine WBC NONE /HPF Urine Squamous Epithelial Cells RARE /HPF Urine Crystals NONE /LPF Urine Bacteria NEGATIVE /HPF Urine Casts NONE /LPF Urine Mucus NEGATIVE /LPF Urine Culture Indicated NO (JESSICA MEDEROS MD) My Orders Orders - JESSICA MEDEROS MD Ct Head Wo (01/07/22 07:57) Ua Culture If Indicated (01/07/22 07:57) Ed Iv/Invasive Line Start (01/07/22 09:07) Basic Metabolic Panel (01/07/22 09:07) Cbc With Automated Diff (01/07/22 09:07) Magnesium (01/07/22 09:07) Lactated Ringers (Lr 1000 Ml Iv Solution (01/07/22 09:15) Thyroid Stimulating Hormone (01/07/22 11:58) Free T4 (Free Thyroxine) (01/07/22 11:58) (JESSICA MEDEROS MD) Medications Given in ED Current Medications Medications Dose Ordered Sig/Steven Route Start Time Stop Time Status Last Admin Dose Admin Lactated Ringer's 1,000 ml @ 0 mls/hr Q0M ONCE IV 01/07/22 09:15 01/07/22 09:16 DC 01/07/22 09:47 1,000 MLS/HR (JESSICA MEDEROS MD) Vital Signs/I&O 01/07/22 07:37 Temp 36.0 Pulse 99 Resp 18 B/P (MAP) 154/93 (113) Pulse Ox 99 O2 Delivery Room Air (JESSICA MEDEROS MD) Progress Progress Note : Progress Note CT head demonstrated no acute intracranial injuries. Patient seems more somnolent and less responsive/active than usual according to his daughter. She reports he does not eat or drink well. Labs were therefore obtained and patient was hydrated with a liter of IV fluid. Catheter urine specimen was also obtained. There were no additional findings on work-up prompting further treatment. Daughter did ask for orders for scheduled Tylenol therapy. This was included in the discharge instructions. See discharge instructions for further discussion. (JESSICA MEDEROS MD) Departure Impression Primary Impression: Fall on same level Qualified Codes: W18.30XA - Fall on same level, unspecified, initial encounter Additional Impressions: Abrasion of scalp Qualified Codes: S00.01XA - Abrasion of scalp, initial encounter Generalized weakness Somnolence Disposition: HOME, SELF-CARE Condition: Stable Departure-Patient Inst. Decision time for Depature: 11:55 (JESSICA MEDEROS MD) Referrals: ANDREA AGUILERA MD (PCP/Family) Primary Care Physician Patient Instructions: Preventing Falls in Older Adults Add. Discharge Instructions: Follow-up with Dr. Aguilera as soon as possible. Encourage plenty of clear liquids. Explore hospice as next steps in his care. Give Tylenol (acetaminophen) 1000 mg 3 times daily scheduled. Return to care if worsening symptoms until enrolled in hospice. Medical Student Attestation and Attending Note: I have personally interviewed and examined this patient along with Rome Rivera, MS 4. I have reviewed student documentation including history, physical, and assessments. I agree with the documentation except where otherwise noted. Exam: General: Alert to voice, disoriented, no acute distress, well developed, somnolent HEENT: Multiple scalp lesions from prior resection and skin grafting. The posterior lesion is oozing blood slightly secondary to trauma from the fall Heart: Regular rate and rhythm without murmur Lungs: Clear to auscultation bilaterally with normal effort Abdomen: Soft, nontender, nondistended, normal bowel sounds Extremities: Extremities seem to be nontender with no pain on range of motion. He does have a sore skin lesion resembling a volcanic-like cutaneous horn or possibly even a pyogenic granuloma. This is painful to the touch. See HEENT above. Neuropsych: Alert, oriented, no focal deficits Skin: Warm and dry without rashes (JESSICA MEDEROS MD) Copy Copies To 1: ANDREA AGUILERA MD, DEREK MED STUDENT Jan 07, 2022 07:52 JESSICA MEDEROS MD Jan 07, 2022 12:04
--- NOTE | 2022-01-07 08:34 | Diagnostic Imaging Report ---
PROCEDURE: CT head without contrast. TECHNIQUE: Multiple contiguous axial images were obtained through the brain without the use of intravenous contrast. Auto Exposure Controls were utilized during the CT exam to meet ALARA standards for radiation dose reduction. INDICATION: Found down with laceration to the back of head. COMPARISON: Correlation is made with the prior head CT from 09/01/2021. FINDINGS: There appears to be soft tissue swelling in the left frontal scalp. The ventricles and sulci remain prominent, consistent with cerebral volume loss. 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 There is an area of encephalomalacia in the right cerebellar hemisphere, similar to the prior head CT. No sulcal effacement or midline shift is identified. No acute intra-axial or extra-axial hemorrhage is detected. No calvarial fracture is identified. The cisterns are patent. The right maxillary sinus and right-sided ethmoid air cells are chronically opacified. IMPRESSION: Chronic changes. No acute intracranial process is detected. Dictated by: Dictated on workstation # [id number]
[2022-01-07] MEDS ORDERED: LACTATED RINGERS 1,000 ML IV ONE (09:15)
[2022-01-07 09:32] LABS: BASOPHILS % (AUTO) 0 % (0-10); EOSINOPHILS % (AUTO) 0 % (0-10); HEMATOCRIT 43 % (40-54); HEMOGLOBIN 13.9 g/dL (13.3-17.7); LYMPHOCYTES # (AUTO) 1.2 10^3/uL (1.0-4.0); LYMPHOCYTES % (AUTO) 9 % (12-44); MEAN CORPUSCULAR HEMOGLOBIN 32 pg (25-34); MEAN CORPUSCULAR HGB CONC 32 g/dL (32-36); MEAN CORPUSCULAR VOLUME 100 fL (80-99); MEAN PLATELET VOLUME 10.8 fL (9.0-12.2); MONOCYTES # (AUTO) 0.7 10^3/uL (0.0-1.0); MONOCYTES % (AUTO) 6 % (0-12); NEUTROPHILS # (AUTO) 10.7 10^3/uL (1.8-7.8); NEUTROPHILS % (AUTO) 83 % (42-75); PLATELET COUNT 264 10^3/uL (130-400); WHITE BLOOD COUNT 12.8 10^3/uL (4.3-11.0)
[2022-01-07 09:35] LABS: POTASSIUM 4.7 MMOL/L (3.6-5.0)
[2022-01-07 09:36] LABS: CALCIUM 9.7 MG/DL (8.5-10.1)
[2022-01-07 09:40] LABS: CREATININE SERUM 1.73 MG/DL (0.60-1.30)
[2022-01-07 09:43] LABS: MAGNESIUM 2.1 MG/DL (1.6-2.4)
[2022-01-07 11:07] LABS: BILIRUBIN,URINE NEGATIVE (NEGATIVE); CLARITY,URINE CLEAR; COLOR,URINE YELLOW; GLUCOSE, URINE (UA) NEGATIVE (NEGATIVE); KETONES,URINE TRACE (NEGATIVE); LEUKOCYTE ESTERASE ,URINE NEGATIVE (NEGATIVE); NITRITE,URINE NEGATIVE (NEGATIVE); PROTEIN,URINE TRACE (NEGATIVE)
[2022-01-07 11:17] LABS: BACTERIA,URINE NEGATIVE /HPF; SQUAMOUS EPITHELIAL CELL,UR RARE /HPF
[2022-01-07 12:15] VITALS: BP 148/82
[2022-01-07 12:49] LABS: FREE T4 (FREE THYROXINE) 1.17 NG/DL (0.70-1.48)
== END 2022-01-07 12:15 | disposition home or self-care (01) ==
LOC: EDUNIT# 07:37 → ER 07:38
DX: S00.01XA Abrasion of scalp, initial encounter (principal); R53.1 Weakness; R40.0 Somnolence; W18.30XA Fall on same level, unspecified, initial encounter
CPT/HCPCS: 36415; 51701; 70450; 80048; 81000; 83735; 84439; 84443; 85025

== ENCOUNTER 2022-01-26 05:36 | Outpatient (CLI) | payer MEDICARE, MEDICAID ==
[2022-01-28] MEDS ORDERED: ACHD5005 PO (09:58)
[2022-01-28] MEDS ORDERED: MIRT-96 PO (10:32)
== END 2022-01-27 10:16 | disposition home or self-care (01) ==
LOC: PREOP 05:36
PROVIDERS: ATTEND Surgery
DX: Z01.818 Encounter for other preprocedural examination (principal)

== ENCOUNTER 2022-01-28 09:26 | Day surgery (SDC) | payer MEDICARE, MEDICAID ==
[~2022-01-28] VITALS: Ht 170.2 cm; Wt 63.2 kg
[2022-01-28] MEDS ORDERED: LACTATED RINGERS 1,000 ML IV PRN (09:45)
[2022-01-28] MEDS ORDERED: ceFAZolin INJECTION 1,000 MG VIAL IV ONE (09:45)
--- NOTE | 2022-01-28 09:56 | Progress Note-Pre Operative ---
Pre-Operative Progress Note H&P Reviewed The H&P was reviewed, patient examined and no changes noted. Date Seen by Provider: January 28, 2022 Time Seen by Provider: 09:55 Date H&P Reviewed: January 28, 2022 Time H&P Reviewed: 09:50 Pre-Operative Diagnosis: Left forearm skin lesion CYNTHIA AVINA APRN January 28, 2022 09:56
[2022-01-28] MEDS ORDERED: ACHD5005 PO (09:58)
--- NOTE | 2022-01-28 09:58 | Discharge Inst-Surgical ---
D/C Lap Instructions-KIDO Reconcile Patient Problems Problems Reviewed?: Yes New, Converted, or Re-Newed RX: RX on Chart Follow Up Appt in 1 week Activity as tolerated No driving for 24 hours No driving while on pain medications Incentive Spirometry use every 2 hours while awake Regular Diet Symptoms to Report: Fever over 101 degree F, Nausea/Vomiting Infection Signs and Symptoms to report: Increased redness, Foul odor of wound, Increased drainage Bathing instructions: May shower Operative Area Clean/Dry; Keep incision clean/dry If any problems/questions: Contact your physician or go to Emergency Room CYNTHIA AVINA APRN January 28, 2022 09:58
[2022-01-28] MEDS ORDERED: morphine INJ 10 MG/ML 1ML (SYR OR VIAL) IVP PRN (10:00)
[2022-01-28] MEDS ORDERED: ONDANSETRON 4 MG/2 ML (SDV) Z0FRAN IVP PRN ×2 (10:00→12:30)
[2022-01-28] MEDS ORDERED: HYDROcodone/APAP 5 MG/325 MG (LORTAB) TAB PO ONE (10:00)
[2022-01-28] MEDS ORDERED: ACETAMINOPHEN 325 MG TABLET PO PRN (10:00)
[2022-01-28 10:05] VITALS: BP 169/86
[2022-01-28] MEDS ORDERED: LIDOCAINE/EPI 2% 1:100,00 (XYLOCAINE) 20 ML VIAL ONE (10:07)
[2022-01-28] MEDS ORDERED: MIRT-96 PO (10:32)
[2022-01-28] MEDS ORDERED: fentaNYL INJ 100 MCG/2 ML AMP ONE (10:47)
[2022-01-28] MEDS ORDERED: SEVOFLURANE (ULTANE) 15 ML INHAL SOLN ONE (10:47)
[2022-01-28] MEDS ORDERED: LIDOCAINE PF 2% 5 ML (XYLOCAINE) VIAL ONE (10:47)
[2022-01-28] MEDS ORDERED: ONDANSETRON 4 MG/2 ML (SDV) Z0FRAN ONE (10:47)
[2022-01-28] MEDS ORDERED: proPOfol 200 MG/20 ML (DIPRIVAN) VIAL IV ONE (10:47)
[2022-01-28] MEDS ORDERED: PROPOFOL INJECTION 50 ML IV ONE (11:53)
[2022-01-28 12:23] VITALS: BP 138/64
--- NOTE | 2022-01-28 12:23 | Progress Note-Post Operative ---
Post-Operative Progess Note Surgeon (s)/Accounting Practice Manager (s) Surgeon NASH CHA MD Accounting Practice Manager: santino figueroa UNDERWRITING ACCOUNT REPRESENTATIVE Pre-Operative Diagnosis Left forearm skin lesion Post-Operative Diagnosis same 4x3.5cm Procedure & Operative Findings Date of Procedure 01/28/22 Procedure Performed/Findings excision malignant skin lesion left arm 4x3.5cm with complex flap closure 6cm. Anesthesia Type mac with local Estimated Blood Loss Estimated blood loss (mL): minimal Specimens/Packing Specimens Removed left arm lesion NASH CHA MD January 28, 2022 12:23
[2022-01-28 12:28] VITALS: BP 141/71
[2022-01-28] MEDS ORDERED: HYDROmorphone 2 MG/ML VIAL (DILAUDID) IV ONE (12:30)
[2022-01-28 12:38] VITALS: BP_SYST 140; BP_SYST 142; BP_DIAS 55; BP_DIAS 67
[2022-01-28 13:08] VITALS: BP 127/72
[2022-01-28 13:15] VITALS: BP 127/72
--- NOTE | 2022-01-28 13:37 | Anesthesia-General Post-Op ---
MAC Patient Condition Mental Status/LOC: Same as Preop Cardiovascular: Satisfactory Nausea/Vomiting: Absent Respiratory: Satisfactory Pain: Controlled Complications: Absent Post Op Complications Complications None Follow Up Care/Instructions Patient Instructions None needed. Anesthesiology Discharge Order Discharge Order Patient is doing well, no complaints, stable vital signs, no apparent adverse anesthesia problems. No complications reported per nursing. AVA ARAIZA CRNA January 28, 2022 13:37
--- NOTE | 2022-01-28 14:46 | OPERATIVE REPORT ---
DATE OF SERVICE: 01/28/2022 ATTENDING PRIMARY CARE PHYSICIAN: Destin García MD PREOPERATIVE DIAGNOSIS: Symptomatic malignant skin lesion, left upper extremity along the extensor surface 4 x 3.5 cm in size. POSTOPERATIVE DIAGNOSIS: Symptomatic malignant skin lesion, left upper extremity along the extensor surface 4 x 3.5 cm in size. PROCEDURE: Excision of left upper extremity lesion 4 x 3.5 cm with complex flap closure 6 cm in size. SURGEON: Nash Cha MD HUMAN RESOURCES DISTRICT MANAGER: Kody Martin APRN. ANESTHESIA: Monitored anesthesia care with local. ESTIMATED BLOOD LOSS: Minimal. FINDINGS: Large exophytic mass, likely consistent with a basal or squamous cell cancer. DISPOSITION: The patient tolerated the procedure well. INDICATIONS: The patient is an 86-year-old male known to us. He has had multiple large skin lesions throughout his body. He had two large scalp lesions, which were removed, and full-thickness skin grafts were placed; however, he does pick at these lesions and the lesion of the anterior scalp had opened up and there is a small area of exposed bone. There are large nodular regions along the base of the scalp lesion consistent with reoccurrence of the squamous cell skin cancer. Due to the location, it was explained to the patient and family that if they wanted to seek further intervention, this would likely require multidisciplinary approach including plastic surgery as well as probable radiation/oncology for radiation to slow growth as well as a flap closure. On that visit, he did have completely different complaint which was a large exophytic lesion of the left upper extremity. He states that this has grown significantly larger over a short period of time and has become painful. This also bleeds on an intermittent basis. The lesion was large and measured to be 4 x 3.5 cm in size and a significantly raised and painful to palpation. This appears to be a malignant skin lesion as well. Due to the location and the pain, he does want to have this lesion removed. DESCRIPTION OF PROCEDURE: The patient was brought to the operating room, laid supine on the table. After adequate IV pain and sedative medications and monitored anesthesia care, the left upper extremity was prepped and draped in standard surgical fashion. The lesion and surrounding area was anesthetized using 1% lidocaine with epinephrine. The lesion was measured out to be 4 x 3.5 cm in size and this was fully excised in elliptical shape using a 15 blade and sent to pathology. The defect was large, and we did have to create lateral flaps encompassing skin and subcutaneous tissue using electrocautery as well as blunt dissection. Once we had enough length, we then proceeded with closure of the defect in a longitudinal manner using interrupted 0 Prolene sutures with entire length of the lesion being approximately 6 cm in size and being complex closure. Good hemostasis was observed, and the wound was then cleaned and covered with 4 x 4 gauze followed by Kerlix wrap. The patient tolerated the procedure well. We will recommend that the wound continued to be covered at all times to keep clean and dry, also to prevent patient from picking at the wound. We will have him follow up in our office in 2 weeks for reevaluation as well as suture removal. Job ID: [id number] DocumentID: [id number] Dictated Date: 01/28/2022 12:30:18 Room Service Server Date: 01/28/2022 14:45:52 Dictated By: NASH CHA MD
== END 2022-01-28 13:15 ==
LOC: SDC 09:26
PROVIDERS: ATTEND Surgery
DX: C43.62 Malignant melanoma of left upper limb, including shoulder (principal)
CPT/HCPCS: 87081

== ENCOUNTER 2022-03-24 08:51 | Outpatient (RCR) | payer MEDICARE, MEDICAID ==
[~2022-03-24 08:51] MED LIST changes: +MIRT-96 PO
== END 2022-03-25 ==
LOC: ONC 08:51
PROVIDERS: ATTEND Internal Medicine Hematology & Oncology
DX: C44.42 Squamous cell carcinoma of skin of scalp and neck (principal)
CPT/HCPCS: 99214

== ENCOUNTER 2022-04-23 10:11 | Outpatient (RCR) | payer MEDICARE, MEDICAID | END 2022-04-25 | disposition home or self-care (01) | LOC: ONC 10:11 | PROVIDERS: ATTEND Internal Medicine Hematology & Oncology | DX: Z51.0 Encounter for antineoplastic radiation therapy (principal); C44.42 Squamous cell carcinoma of skin of scalp and neck; I25.10 Atherosclerotic heart disease of native coronary artery without angina pectoris; E03.9 Hypothyroidism, unspecified | CPT/HCPCS: 77280; 77290; 77295; 77300; 77332; 77334; 77336; 77417; 77470; 99204 ==

== ENCOUNTER → 2022-04-27 | Outpatient (CLI) | payer MEDICARE, MEDICAID ==
[~2022-04-27] MED LIST changes: +HOLD METFORMIN - RECEIVED CONTRAST 20 ML VIAL IV SCH; +IOHEXOL 350 MG/ML 100 ML (OMNIPAQUE 350) VIAL IV ONE; +NS 100 ML (IVPB) BAG IV ONE
[2022-04-27] MEDS: CATHETER FLUSH 10 ML SYR IVP PRN ×2 (11:15→11:26)
--- NOTE | 2022-04-27 13:09 | Diagnostic Imaging Report ---
EXAMINATION: CT neck, chest, abdomen and pelvis with intravenous contrast. TECHNIQUE: Multiple contiguous axial images were obtained through the neck, chest, abdomen and pelvis after the uneventful administration of intravenous contrast. All CT scans use one or more of the following dose optimizing techniques: automated exposure control, MA and/or KvP adjustment based on patient size and exam type or iterative reconstruction. HISTORY: Squamous cell carcinoma of the skin. COMPARISON: 01/18/2019, 10/24/2017. FINDINGS: Neck CT: There is an unchanged 5 mm nodule in the right parotid gland. No enlarged lymph nodes are seen in the neck. There is a 1.5 x 1.5 cm heterogeneous nodule anterior to the left auricle. The muscles of the neck are normal. There is at least moderate stenosis of the most proximal internal carotid arteries. Fascial planes are preserved and the deep spaces of the neck are normal. The visualized airway is widely patent. The base of the skull and the temporal bones are normal. Limited views of the brain including the cerebellum and brainstem are normal. The limited view of the [place] is unremarkable. The visualized portions of the orbits are normal. Chest CT: There is no edema or pneumonia. There is a small left pleural effusion. There is mild peripheral reticulations suggestive of fibrosis. No pneumothorax. No suspicious nodules. There is no axillary or supraclavicular lymphadenopathy. There is no mediastinal lymphadenopathy. Heart size is normal. There are severe coronary artery calcifications. No pericardial effusion. There is an unchanged 4.2 cm ascending aortic aneurysm. Abdomen and Pelvis CT: The liver is normal without focal lesion. There is no biliary ductal dilation. Gallbladder is absent. Pancreas is normal. Spleen is normal. Adrenal glands are normal. The kidneys are normal. There is no hydronephrosis. There is urinary bladder wall thickening and mucosal hyperenhancement. Bowel is normal in caliber without obstruction or inflammation. No free fluid or air. No abdominal or pelvic lymphadenopathy. There has been endovascular repair of abdominal aortic aneurysm. The excluded sac measures 5.7 x 5.3 cm and is unchanged. There are no suspicious osseus lesions. IMPRESSION: 1. New 1.5 x 1.5 cm heterogeneous nodule anterior to the left auricle. There appears to be surgical changes in this region. Differential includes a local recurrence of tumor or fat necrosis. 2. Unchanged 5 mm right parotid nodule. 3. Unchanged 4.2 cm ascending aortic aneurysm. 4. Urinary bladder wall thickening and mucosal hyperenhancement concerning for cystitis. Dictated by: Dictated on workstation # [id number]
--- NOTE | 2022-04-27 16:03 | Diagnostic Imaging Report ---
INDICATION: Squamous cell carcinoma of the scalp. Open wound at the scalp. 25.9 mCi intravenous dose technetium 99 MDP was administered and after 3 hours whole-body planar imaging was performed. FINDINGS: Left of midline at the anterolateral vertex of the skull, there is abnormal accumulation of the radiopharmacy which corresponds to the site of soft tissue defect and superficial outer table cortical irregularity of the skull as demonstrated at head CT of 01/07/2022. Ribs, sternum and manubrium unremarkable. There are arthritic changes to the hips and knees and right greater than left feet and ankles as well as the bilateral shoulders. Upper and lower extremity showed no suspicious finding. There is anterolateral upper right lumbar uptake correlating with bulky marginal osteophytes present at earlier CT. There is also uptake associated with the hypertrophied right SI joint and lumbosacral junction at CT. No suspicious finding is revealed. IMPRESSION : 1. Degenerative distribution of the radiopharmacy, no findings of distant osseous metastasis. 2. Intense abnormal uptake about the left frontal calvarium near the vertex anteriorly. Dictated by: Dictated on workstation # [id number]
== END ==
LOC: CARD 10:39
PROVIDERS: ATTEND Internal Medicine Hematology & Oncology
DX: C44.42 Squamous cell carcinoma of skin of scalp and neck (principal); I51.89 Other ill-defined heart diseases; K11.8 Other diseases of salivary glands; I71.2 Thoracic aortic aneurysm, without rupture; N32.89 Other specified disorders of bladder
CPT/HCPCS: 70491; 71260; 74176; 78306

== ENCOUNTER → 2022-05-07 | Day surgery (SDC) | payer MEDICARE, MEDICAID ==
[~2022-05-07] VITALS: Ht 170.2 cm; Wt 63.6 kg
[~2022-05-07] MED LIST changes: -HOLD METFORMIN - RECEIVED CONTRAST 20 ML VIAL IV SCH; -IOHEXOL 350 MG/ML 100 ML (OMNIPAQUE 350) VIAL IV ONE; +LIDOCAINE 1% INJ 50 ML (XYLOCAINE) VIAL IJ ONE; -NS 100 ML (IVPB) BAG IV ONE
--- NOTE | 2022-05-07 17:25 | Diagnostic Imaging Report ---
INDICATION: Left preauricular mass. PROCEDURE: The patient presents for ultrasound-guided biopsy. The patient was brought to the procedure room and placed on the table in the [id number]-iobi-uovo decubitus position. Ultrasound imaging in the left-sided preauricular region was performed to evaluate appropriate entry site. The skin was then prepped and draped in the usual sterile fashion. A small amount of 1% lidocaine was utilized for local anesthesia. Four passes were made into the solid mass in the left preauricular region utilizing a 20-gauge Temno needle. Core sampling was performed. Needle was removed and hemostasis was obtained. Patient tolerated the procedure well and left the department in stable condition. IMPRESSION: Successful ultrasound-guided core biopsy of the solid mass in the left preauricular region. Pathology results are currently pending. Dictated by: Dictated on workstation # [id number]
== END ==
LOC: RAD 10:19
PROVIDERS: ATTEND Internal Medicine Hematology & Oncology
DX: C44.229 Squamous cell carcinoma of skin of left ear and external auricular canal (principal)
CPT/HCPCS: 76942; 88305

== ENCOUNTER → 2022-05-26 | Outpatient (RCR) | payer MEDICARE, MEDICAID ==
[2022-04-27 11:19] LABS: BILIRUBIN,TOTAL 0.4 MG/DL (0.1-1.0); CALCIUM 9.1 MG/DL (8.5-10.1); CREATININE SERUM 1.78 MG/DL (0.60-1.30); POTASSIUM 4.3 MMOL/L (3.6-5.0); TOTAL PROTEIN 6.4 GM/DL (6.4-8.2)
[2022-05-18 10:47] LABS: BASOPHILS # (AUTO) 0.1 10^3/uL (0.0-0.1); BASOPHILS % (AUTO) 1 % (0-10); EOSINOPHILS # (AUTO) 0.4 10^3/uL (0.0-0.3); EOSINOPHILS % (AUTO) 4 % (0-10); HEMATOCRIT 38 % (40-54); HEMOGLOBIN 11.9 g/dL (13.3-17.7); LYMPHOCYTES # (AUTO) 2.2 10^3/uL (1.0-4.0); LYMPHOCYTES % (AUTO) 27 % (12-44); MEAN CORPUSCULAR HEMOGLOBIN 32 pg (25-34); MEAN CORPUSCULAR HGB CONC 31 g/dL (32-36); MEAN CORPUSCULAR VOLUME 101 fL (80-99); MEAN PLATELET VOLUME 10.3 fL (9.0-12.2); MONOCYTES # (AUTO) 0.6 10^3/uL (0.0-1.0); MONOCYTES % (AUTO) 7 % (0-12); NEUTROPHILS # (AUTO) 4.9 10^3/uL (1.8-7.8); NEUTROPHILS % (AUTO) 61 % (42-75); PLATELET COUNT 160 10^3/uL (130-400); WHITE BLOOD COUNT 8.1 10^3/uL (4.3-11.0)
[2022-05-18 11:07] LABS: ALBUMIN 3.1 GM/DL (3.2-4.5); BILIRUBIN,TOTAL 0.3 MG/DL (0.1-1.0); CREATININE SERUM 2.09 MG/DL (0.60-1.30); POTASSIUM 4.6 MMOL/L (3.6-5.0); TOTAL PROTEIN 6.6 GM/DL (6.4-8.2)
[~2022-05-26] MED LIST changes: -LIDOCAINE 1% INJ 50 ML (XYLOCAINE) VIAL IJ ONE
== END | disposition home or self-care (01) ==
LOC: ONC 04-26 09:58
PROVIDERS: ATTEND Internal Medicine Hematology & Oncology
DX: Z51.0 Encounter for antineoplastic radiation therapy (principal); C44.42 Squamous cell carcinoma of skin of scalp and neck; I25.10 Atherosclerotic heart disease of native coronary artery without angina pectoris; E03.9 Hypothyroidism, unspecified
CPT/HCPCS: 36415; 77290; 77300; 77334; 77336; 77417; 80053; 85025; 99213

== ENCOUNTER 2022-06-13 16:35 | Emergency (ER) | payer MEDICARE, MEDICAID ==
[~2022-06-13] VITALS: Ht 175 cm; Wt 72.0 kg
[2022-06-13] MEDS ORDERED: LIDOCAINE 1% INJ 20 ML VIAL INJ ONE (17:15)
--- NOTE | 2022-06-13 17:23 | ED Fall/Injury ---
General Chief Complaint: Trauma-Non Activation Stated Complaint: FALL Source: patient Exam Limitations: no limitations (THERESA JACOME MD) History of Present Illness Date Seen by Provider: Jun 13, 2022 Time Seen by Provider: 16:55 Initial Comments Patient is an 87yo male who presents to the ER after being [facility] in the bathroom on the floor with a head injury. He was last seen in his bed at shift check at 1430. When staff went down at 1600 to get him for dinner he was found. 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 HE normally ambulates with a walker. HE is not on blood thinners. HE has some dementia. Patient states that he slipped on some "hockey" (?stool) and hit his head on the floor. He states he was not knocked out. He states that he laid there "about an hour". He states he was layin on the left side of his face and it hurts. He denies chest pain, abdominal pain, extremity pain. No SOB. No n/v. when I moved him to examine him further - he endorsed some mid thoracic back discomfort with palpation to the paraspinous musculature of the mif T spine. Occurred: this afternoon Severity: moderate Injuries/Pain Location: head, face Loss of Consciousness: unsure Associated Symptoms (Fall): Denies Symptoms (THERESA JACOME MD) Allergies and Home Medications Allergies Coded Allergies: No Known Drug Allergies (Unverified , 08/13/21) Patient Home Medication List Home Medication List Reviewed: Yes (THERESA JACOME MD) Allopurinol (Allopurinol) 300 Mg Tablet, 150 MG PO DAILY, (Reported) Entered as Reported by: GABO MCGHEE on 07/17/18 1408 Cefdinir (Cefdinir) 300 Mg Capsule, 300 MG PO BID Prescribed by: DAY ARGUELLES on 06/13/22 183 Cholecalciferol (Vitamin D3) (Vitamin D3) 25 Mcg Tablet, 25 MCG PO DAILY, (Reported) Entered as Reported by: PAUL HERNANDEZ on 09/01/20926 Docusate Sodium (Docusate Sodium) 100 Mg Tablet, 100 MG PO BID, (Reported) Entered as Reported by: PAUL HERNANDEZ on 09/01/20926 Hydrocodone/Acetaminophen (Hydrocodone-Acetamin 5-325 mg) 5 Mg-325 Mg Tablet, 1 TAB PO Q4H PRN for PAIN-MODERATE (5-7) Prescribed by: CYNTHIA AVINA on 01/28/22957 Levothyroxine Sodium (Levothyroxine) 75 Mcg Capsule, 75 MCG PO DAILY, (Reported) Entered as Reported by: PAUL HERNANDEZ on 09/01/20926 Mirtazapine (Remeron) 15 Mg Tablet, 15 MG PO HS, (Reported) Entered as Reported by: MARIANO DAUGHERTY on 01/28/22 1032 Mv-Mn/FA/Vit K/Lycop/Lut/Zeaxa (Ocuvite Eye + Multi Tablet) 1 Each Tablet, 1 EACH PO DAILY, (Reported) Entered as Reported by: PAUL HERNANDEZ on 09/01/20926 Pantoprazole Sodium (Pantoprazole Sodium) 40 Mg Tablet.dr, 40 MG PO DAILY, (Reported) Entered as Reported by: PAUL HERNANDEZ on 09/01/20926 Review of Systems Review of Systems Constitutional: see HPI Eyes: No Symptoms Reported Ears, Nose, Mouth, Throat: no symptoms reported Respiratory: no symptoms reported Cardiovascular: no symptoms reported Gastrointestinal: no symptoms reported Genitourinary: no symptoms reported Musculoskeletal: back pain Skin: lesions, other (sore scalp) (THERESA JACOME MD) Past Odibhmt-Nbkwew-Ryprxs Hx Immunizations Up To Date Tetanus Booster (TDap): Unknown PED Vaccines UTD: No First/Initial COVID19 Vaccinat: 10/16 Second COVID19 Vaccination Leroy: 10/16 Third COVID19 Vaccination Date: 07/16 (THERESA JACOME MD) Seasonal Allergies Seasonal Allergies: No (THERESA JACOME MD) Past Medical History Surgery/Hospitalization HX: SEE [facility] Surgeries: Yes (aortic aneurysm repair in [place], biliary stent) Abdominal, Adenoidectomy, Coronary Stent, Gallbladder, Renal, Tonsillectomy Respiratory: No Currently Using CPAP: No Currently Using BIPAP: No Cardiac: Yes Coronary Artery Disease Neurological: Yes (pt stated had a stroke 15 years ago but has not been diagnosed) Reproductive Disorders: No Sexually Transmitted Disease: No HIV/AIDS: No Genitourinary: Yes Prostate Problems, Kidney Stones Gastrointestinal: Yes (HX OF GALLSTONES, ERCP) Gastroesophageal Reflux, Chronic Constipation, Ulcer, Gall Bladder Disease Musculoskeletal: No Arthritis, Chronic Back Pain, Gout Endocrine: Yes Hypothyroidsim HEENT: Yes Cataract, Glaucoma Loss of Vision: Bilateral Hearing Impairment: Denies 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 No Pertinent Family Hx (THERESA JACOME MD) Physical Exam Vital Signs Vital Signs - First Documented 06/13/22 16:35 Temp 37.3 Pulse 101 Resp 21 B/P (MAP) 160/112 (128) Pulse Ox 100 O2 Delivery Room Air (IRWIN,DAY K DO) Vital Signs Capillary Refill : (THERESA JACOME MD) Height, Weight, BMI Height: 5'7.50" Weight: 160lbs. 4.0oz. [id number]; 21.95 BMI Method:Stated General Appearance: WD/WN, no apparent distress HEENT: PERRL/EOMI, TMs normal, pharynx normal Neck: non-tender, full range of motion Cardiovascular: regular rate, rhythm Respiratory: chest non-tender, lungs clear, normal breath sounds, no respiratory distress, no accessory muscle use Gastrointestinal: normal bowel sounds, non tender, soft Back: muscle spasm Extremities: normal range of motion, normal inspection Neurologic/Psychiatric: no motor/sensory deficits, alert, normal mood/affect, other (oriented to self) Skin: warm/dry, other (laceration mid forehead extending into the pre-existing scalp wound about 3.5cm. oozing blood. Skin tear left forearm, no active bleeding) (THEERSA JACOME MD) Procedures/Interventions Wound Location: Face Other Wound Location center upper forehead Wound Length (cm): 2.5 Wound's Depth, Shape: superficial, linear Wound Explored: clean Irrigated w/ Saline (ccs): 100 Anesthesia: Lidocaine w/ Epi (4ml) Staple Repair: Stapler 35W (5) (THERESA JACOME MD) Progress/Results/Core Measures Results/Orders Lab Results Laboratory Tests Test 06/13/22 17:15 06/13/22 17:20 Range/Units White Blood Count 13.2 H 4.3-11.0 10^3/uL Red Blood Count 3.75 L 4.30-5.52 10^6/uL Hemoglobin 12.2 L 13.3-17.7 g/dL Hematocrit 37 L 40-54 % Mean Corpuscular Volume 100 H 80-99 fL Mean Corpuscular Hemoglobin 33 25-34 pg Mean Corpuscular Hemoglobin Concent 33 32-36 g/dL Red Cell Distribution Width 14.5 10.0-14.5 % Platelet Count 157 130-400 10^3/uL Mean Platelet Volume 10.2 9.0-12.2 fL Immature Granulocyte % (Auto) 1 % Neutrophils (%) (Auto) 88 H 42-75 % Lymphocytes (%) (Auto) 6 L 12-44 % Monocytes (%) (Auto) 5 0-12 % Eosinophils (%) (Auto) 0 0-10 % Basophils (%) (Auto) 0 0-10 % Neutrophils # (Auto) 11.6 H 1.8-7.8 10^3/uL Lymphocytes # (Auto) 0.8 L 1.0-4.0 10^3/uL Monocytes # (Auto) 0.6 0.0-1.0 10^3/uL Eosinophils # (Auto) 0.0 0.0-0.3 10^3/uL Basophils # (Auto) 0.1 0.0-0.1 10^3/uL Immature Granulocyte # (Auto) 0.1 0.0-0.1 10^3/uL Neutrophils % (Manual) 90 % Lymphocytes % (Manual) 7 % Monocytes % (Manual) 3 % Blood Morphology Comment NORMAL Sodium Level 139 135-145 MMOL/L Potassium Level 4.8 3.6-5.0 MMOL/L Chloride Level 105 98-107 MMOL/L Carbon Dioxide Level 20 L 21-32 MMOL/L Anion Gap 14 5-14 MMOL/L Blood Urea Nitrogen 35 H 7-18 MG/DL Creatinine 2.04 H 0.60-1.30 MG/DL Estimat Glomerular Filtration Rate 31 BUN/Creatinine Ratio 17 Glucose Level 174 H 70-105 MG/DL Calcium Level 9.3 8.5-10.1 MG/DL Urine Color YELLOW Urine Clarity CLOUDY Urine pH 6.0 5-9 Urine Specific [place]on 1.015 L 1.016-1.022 Urine Protein NEGATIVE NEGATIVE Urine Glucose (UA) NEGATIVE NEGATIVE Urine Ketones NEGATIVE NEGATIVE Urine Nitrite POSITIVE H NEGATIVE Urine Bilirubin NEGATIVE NEGATIVE Urine Urobilinogen 0.2 < = 1.0 MG/DL Urine Leukocyte Esterase 3+ H NEGATIVE Urine RBC (Auto) TRACE-I H NEGATIVE Urine RBC RARE /HPF Urine WBC 25-50 H /HPF Urine Squamous Epithelial Cells 0-2 /HPF Urine Crystals NONE /LPF Urine Bacteria LARGE H /HPF Urine Casts PRESENT /LPF Urine Hyaline Casts RARE /LPF Urine Mucus SMALL H /LPF Urine Culture Indicated YES (DAY ARGUELLES DO) My Orders Orders - DAY ARGUELLES DO Ceftriaxone 1 Gm Pre-Mix (Rocephin 1 Gm (06/13/22 18:28) (DAY ARGUELLES DO) Medications Given in ED Current Medications Medications Dose Ordered Sig/Steven Route Start Time Stop Time Status Last Admin Dose Admin Lidocaine/ Epinephrine 10 ml STK-MED ONCE .ROUTE 06/13/22 17:35 06/13/22 17:39 DC 06/13/22 17:41 10 ML (DAY ARGUELLES DO) Vital Signs/I&O 06/13/22 16:35 Temp 37.3 Pulse 101 Resp 21 B/P (MAP) 160/112 (128) Pulse Ox 100 O2 Delivery Room Air (DAY ARGUELLES DO) Progress Progress Note : Time: 17:53 Progress Note Care passed to Dr Arguelles at shift change with results/studies pending (THERESA JACOME MD) Progress Note : Progress Note 1800--ASSUMED CARE FROM DR. JACOME, CT RESULTS PENDING. SHE HAS REPAIRED FOREHEAD LACERATION WITH 4 ALE. PT IS RESTING AT THIS TIME. VITALS STABLE. (DAY ARGUELLES DO) Diagnostic Imaging Comments CT HEAD/MAXILLOFACIALS/CERVICAL SPINE--PER RADIOLOGIST REPORT AT 1826 FINDINGS: CT BRAIN: There is a large scalp hematoma anteriorly towards the vertex with subcutaneous air noted. There is no acute hemorrhage. No acute infarct. No mass, mass effect or midline shift with no hydrocephalus. Chronic ischemic disease is noted with areas of encephalomalacia within the cerebellum. There is diffuse atrophy, age appropriate. There is a smaller scalp hematoma posteriorly. No fracture is appreciated within the calvarium. Along the posterior scalp hematoma there is a focal skin defect which is similar to previous examination with underlying mild cortical irregularity along the superficial cortex of the posterior occipital calvarium. This is similar to the previous examination, clinical correlation for prior surgery or known underlying abnormality recommended. No displaced fracture in the region is appreciated. There is a similar area of cortical irregularity which has worsened since the previous examination, possibly due to either osteomyelitis or a metastatic lesion, lytic in nature along the anterior frontal calvarium towards the vertex. This has worsened in appearance from previous. IMPRESSION: 1. Chronic ischemic changes with no superimposed acute intracranial process. 2. Scalp hematomas however additionally there are soft tissue defects anteriorly and posteriorly with underlying cortical irregularity most marked along the anterior calvarium towards the vertex where there is a large lytic lesion either due to a metastatic process or osteomyelitis. Clinical correlation with history recommended. CT MAXILLOFACIAL: There is flattening of the anterior nasal bone, age indeterminate. If there is point tenderness this could represent an acute fracture. Remaining osseous structures intact. Temporomandibular joints intact. There are no air-fluid levels within the sinuses with minimal mucosal thickening scattered about the sinuses noted. There is poor dentition with absence of the teeth, bilaterally. Mild fat stranding and fatty change in the left anterior mandibular region extending to the cheek is nonspecific and chronic in appearance. An underlying lipoma is possible. Orbits intact. IMPRESSION: Depressed appearance of the midline of the anterior nose which is age indeterminate correlate for point tenderness. Remaining osseous structures intact with soft tissue edema overlying the left maxilla and mandible and an underlying possible lipoma. CT CERVICAL SPINE: There is multilevel degenerative disease with no superimposed acute fracture or subluxation. There is chronic vascular atherosclerotic disease. No acute process within the prevertebral soft tissues or visualized lung apices. IMPRESSION: Degenerative findings with no acute osseous abnormality appreciated. Reviewed: Reviewed by Me (DAY ARGUELLES DO) Departure Impression Primary Impression: Forehead laceration Qualified Codes: S01.81XA - Laceration without foreign body of other part of head, initial encounter Additional Impressions: Skin tear Unwitnessed fall Skin cancer of scalp UTI (urinary tract infection) Chronic renal insufficiency Disposition: 03 XFER SNF Condition: Stable Departure-Patient Inst. Decision time for Depature: 18:28 (DAY ARGUELLES DO) Referrals: ANDREA AGUILERA MD (PCP/Family) Primary Care Physician Patient Instructions: Laceration Repair With [facility], Abrasions ED, Urinary Tract Infection, Adult ED, Preventing Falls in Older Adults Add. Discharge Instructions: CLEAN WOUNDS TWICE A DAY WITH ANTIBACTERIAL SOAP AND WATER' ROUTINE SKIN CARE ADVISED BY HIS PCP FOR SKIN CANCER AREA ALE OUT IN 10 DAYS CONTINUE YOUR REGULAR MEDICATIONS PRESCRIBED FOLLOW UP WITH YOUR DR NEEDED All discharge instructions reviewed with patient and/or family. Voiced understanding. Scripts Cefdinir (Cefdinir) 300 Mg Capsule 300 MG PO BID, #20 CAP Prov: DAY ARGUELLES DO 06/13/22 THERESA JACOME MD Jun 13, 2022 17:23 DAY ARGUELLES DO Jun 13, 2022 18:28
[2022-06-13 17:24] LABS: BILIRUBIN,URINE NEGATIVE (NEGATIVE); CLARITY,URINE CLOUDY; COLOR,URINE YELLOW; GLUCOSE, URINE (UA) NEGATIVE (NEGATIVE); KETONES,URINE NEGATIVE (NEGATIVE); LEUKOCYTE ESTERASE ,URINE 3+ (NEGATIVE); NITRITE,URINE POSITIVE (NEGATIVE); PROTEIN,URINE NEGATIVE (NEGATIVE)
[2022-06-13 17:32] LABS: BASOPHILS # (AUTO) 0.1 10^3/uL (0.0-0.1); BASOPHILS % (AUTO) 0 % (0-10); EOSINOPHILS % (AUTO) 0 % (0-10); HEMATOCRIT 37 % (40-54); HEMOGLOBIN 12.2 g/dL (13.3-17.7); LYMPHOCYTES # (AUTO) 0.8 10^3/uL (1.0-4.0); LYMPHOCYTES % (AUTO) 6 % (12-44); MEAN CORPUSCULAR HEMOGLOBIN 33 pg (25-34); MEAN CORPUSCULAR HGB CONC 33 g/dL (32-36); MEAN CORPUSCULAR VOLUME 100 fL (80-99); MEAN PLATELET VOLUME 10.2 fL (9.0-12.2); MONOCYTES # (AUTO) 0.6 10^3/uL (0.0-1.0); MONOCYTES % (AUTO) 5 % (0-12); NEUTROPHILS # (AUTO) 11.6 10^3/uL (1.8-7.8); NEUTROPHILS % (AUTO) 88 % (42-75); PLATELET COUNT 157 10^3/uL (130-400); WHITE BLOOD COUNT 13.2 10^3/uL (4.3-11.0)
[2022-06-13] MEDS ORDERED: LIDOCAINE/EPI 2% 1:200,00 (XYLOCAINE) 10 ML VIAL ONE (17:35)
[2022-06-13 17:38] LABS: POTASSIUM 4.8 MMOL/L (3.6-5.0)
[2022-06-13 17:39] LABS: CALCIUM 9.3 MG/DL (8.5-10.1)
[2022-06-13 17:44] LABS: CREATININE SERUM 2.04 MG/DL (0.60-1.30)
[2022-06-13] MEDS ORDERED: LIDOCAINE/EPI 2% 1:100,00 (XYLOCAINE) 20 ML VIAL INJ ONE (17:45)
[2022-06-13 17:46] LABS: RBC,URINE RARE /HPF; WBC,URINE 25-50 /HPF
[2022-06-13 17:47] LABS: BACTERIA,URINE LARGE /HPF; HYALINE CASTS, URINE RARE /LPF; SQUAMOUS EPITHELIAL CELL,UR 0-2 /HPF
[2022-06-13 18:05] LABS: LYMPHOCYTES % (MANUAL) 7 %; MONOCYTES % (MANUAL) 3 %; NEUTROPHILS % (MANUAL) 90 %
[2022-06-13 18:06] LABS: RBC MORPH NORMAL
--- NOTE | 2022-06-13 18:14 | Diagnostic Imaging Report ---
INDICATION: Fall, pain. EXAMINATION: CT brain, CT cervical spine and CT maxillofacial, 06/13/2022. All CT scans use one or more of the following dose optimizing techniques: automated exposure control, MA and/or KvP adjustment based on patient size and exam type or iterative reconstruction. COMPARISON: 09/01/2021. FINDINGS: CT BRAIN: There is a large scalp hematoma anteriorly towards the vertex with subcutaneous air noted. There is no acute hemorrhage. No acute infarct. No mass, mass effect or midline shift with no hydrocephalus. Chronic ischemic disease is noted with areas of encephalomalacia within the cerebellum. There is diffuse atrophy, age appropriate. There is a smaller scalp hematoma posteriorly. No fracture is appreciated within the calvarium. Along the posterior scalp hematoma there is a focal skin defect which is similar to previous examination with underlying mild cortical irregularity along the superficial cortex of the posterior occipital calvarium. This is similar to the previous examination, clinical correlation for prior surgery or known underlying abnormality recommended. No displaced fracture in the region is appreciated. There is a similar area of cortical irregularity which has worsened since the previous examination, possibly due to either osteomyelitis or a metastatic lesion, lytic in nature along the anterior frontal calvarium towards the vertex. This has worsened in appearance from previous. IMPRESSION: 1. Chronic ischemic changes with no superimposed acute intracranial process. 2. Scalp hematomas however additionally there are soft tissue defects anteriorly and posteriorly with underlying cortical irregularity most marked along the anterior calvarium towards the vertex where there is a large lytic lesion either due to a metastatic process or osteomyelitis. Clinical correlation with history recommended. CT MAXILLOFACIAL: There is flattening of the anterior nasal bone, age indeterminate. If there is point tenderness this could represent an acute fracture. Remaining osseous structures intact. Temporomandibular joints intact. There are no air-fluid levels within the sinuses with minimal mucosal thickening scattered about the sinuses noted. There is poor dentition with absence of the teeth, bilaterally. Mild fat stranding and fatty change in the left anterior mandibular region extending to the cheek is nonspecific and chronic in appearance. An underlying lipoma is possible. Orbits intact. IMPRESSION: Depressed appearance of the midline of the anterior nose which is age indeterminate correlate for point tenderness. Remaining osseous structures intact with soft tissue edema overlying the left maxilla and mandible and an underlying possible lipoma. CT CERVICAL SPINE: There is multilevel degenerative disease with no superimposed acute fracture or subluxation. There is chronic vascular atherosclerotic disease. No acute process within the prevertebral soft tissues or visualized lung apices. IMPRESSION: Degenerative findings with no acute osseous abnormality appreciated. Dictated by: Dictated on workstation # [id number]
[2022-06-13] MEDS ORDERED: cefTRIAXone 1 GM PRE-MIX 50 ML IV STA (18:28)
[2022-06-13] MEDS ORDERED: CEFD300C3 PO (18:30)
[2022-06-13 18:52] VITALS: BP 143/79
== END 2022-06-13 18:52 ==
LOC: EDUNIT# 16:35 → ER 16:37
DX: S01.81XA Laceration without foreign body of other part of head, initial encounter (principal); S51.812A Laceration without foreign body of left forearm, initial encounter; C44.42 Squamous cell carcinoma of skin of scalp and neck; N39.0 Urinary tract infection, site not specified; N18.9 Chronic kidney disease, unspecified; W19.XXXA Unspecified fall, initial encounter; Y92.121 Bathroom in nursing home as the place of occurrence of the external cause
CPT/HCPCS: 36415; 70450; 70486; 72125; 80048; 81000; 85007; 85027; 87077; 87088; 87186

== ENCOUNTER 2022-06-15 09:00 | Outpatient (RCR) | payer MEDICARE, MEDICAID | END 2022-06-25 | disposition home or self-care (01) | LOC: ONC 09:00 | PROVIDERS: ATTEND Internal Medicine Hematology & Oncology | DX: Z51.0 Encounter for antineoplastic radiation therapy (principal); C44.42 Squamous cell carcinoma of skin of scalp and neck; I25.10 Atherosclerotic heart disease of native coronary artery without angina pectoris; E03.9 Hypothyroidism, unspecified | CPT/HCPCS: 77290; 77300; 77332; 77334; 77336; 99213 ==

== ENCOUNTER → 2022-06-15 | Outpatient (CLI) | payer MEDICARE, MEDICAID ==
[~2022-06-15] MED LIST changes: +CEFD300C3 PO
== END ==
LOC: WOUNDCARE 09:50
PROVIDERS: ATTEND Family Medicine
DX: C44.49 Other specified malignant neoplasm of skin of scalp and neck (principal); C41.0 Malignant neoplasm of bones of skull and face; S01.81XA Laceration without foreign body of other part of head, initial encounter; L98.494 Non-pressure chronic ulcer of skin of other sites with necrosis of bone; L59.9 Disorder of the skin and subcutaneous tissue related to radiation, unspecified; R29.6 Repeated falls
CPT/HCPCS: 87070; 87077; 87186; 87205; 99214

== ENCOUNTER → 2022-07-12 | Outpatient (CLI) | payer MEDICARE, MEDICAID ==
[~2022-07-12] MED LIST changes: +CATHETER FLUSH 10 ML SYR IV PRN; +HOLD METFORMIN - RECEIVED CONTRAST 20 ML VIAL IV SCH; +IOHEXOL 350 MG/ML 100 ML (OMNIPAQUE 350) VIAL IV ONE; +NS 100 ML (IVPB) BAG IV ONE
[2022-07-12 11:25] LABS: CREATININE SERUM 1.98 MG/DL (0.60-1.30)
== END ==
LOC: RAD 10:15
PROVIDERS: ATTEND Internal Medicine Hematology & Oncology
DX: C44.42 Squamous cell carcinoma of skin of scalp and neck (principal)
CPT/HCPCS: 36415; 82565; 84520